=== PATIENT | female | born 1950 | race Caucasian/White ===

== ENCOUNTER 2022-07-12 10:38 | Emergency (ER) | payer MEDICARE, BC, SELFPAY ==
[2022-07-12] VITALS (25 sets, daily range): BP systolic 108–143; BP diastolic 62–85; PULSE 55–71; RESP 10–20; TEMP 36.8; O2SAT 83–96; BMI 29.8
--- NOTE | 2022-07-12 11:31 | ED_ITS ---
HPI - General Adult General Time Seen by Provider: 11:31 Date Seen: 07/12/22 Chief complaint: Chest Pain Stated complaint: Chest/left arm pain Time Seen by Provider: 07/12/22 11:11 Source: patient and RN notes reviewed Mode of arrival: ambulatory Limitations: no limitations History of Present Illness HPI narrative: Patient is a 71-year-old female ambulatory in the ED of her own accord with sense of chest pressure. This morning she went to the [employer] to steel pickler black for her and parents Graves site, went to [employer] after that to steel pickler a prescription that was ready. She was walking out to her car when she had sudden onset of chest discomfort that radiated into her neck and into her left arm. She drove home and took 2 sublingual nitroglycerin. This abated the pain but she still left with a sense pressure. She describes it as a heaviness. She has sublingual nitroglycerin for esophageal spasms. Her esophageal spasms have not felt like this before. She has not been sick with any cough or cold symptoms. The sharp type pain completely abated with the nitroglycerin. She does not have a history of cardiac disease. There was no sense of reflux, no associated nausea or vomiting. No abdominal pain. Related Data Previous Rx's Medication Instructions Recorded albuterol sulfate 90 mcg/actuation 2 puff inhalation Q6-8H PRN 07/04/22 aerosol inhaler bronchospasm #18 ea prednisone 20 mg tablet 20 mg PO BID #10 tabs 07/12/22 Allergies Allergy/AdvReac Type Severity Reaction Status Date / Time aspirin AdvReac Verified 07/12/22 10:49 Review of Systems Status of ROS: Reports: 10 or more systems reviewed and unremarkable except as noted in History and below [facility] Medical History (Updated 07/12/22 @ 15:52 by Sienna Landin MD) Bronchospasm Social History Smoking Status: Never smoker Do you use any of these nicotine containing products: None Second hand tobacco smoke exposure: No How often do you have a drink containing alcohol: monthly or less How often do you have six or more drinks on one occasion: Never AUDIT-C Alcohol total score: 1 Non-prescribed substance use: denies use service: No Exam Const: Vital Signs, click to edit/add: Vital Signs - 24 hr 07/12/22 10:50 07/12/22 10:57 07/12/22 11:55 Temperature 98.3 F Pulse Rate Pulse Rate [Apical ] 71 66 Respiratory Rate 20 18 Blood Pressure Blood Pressure [Ri ght Upper Arm] 116/85 108/77 Pulse Oximetry 93 93 93 Oxygen Delivery Me thod Room Air Room Air Oxygen Flow Rate 07/12/22 11:22 07/12/22 11:30 07/12/22 12:00 Temperature Pulse Rate Pulse Rate [Apical ] 64 61 61 Respiratory Rate 10 L 16 10 L Blood Pressure Blood Pressure [Ri ght Upper Arm] 122/75 117/71 123/73 Pulse Oximetry 91 92 92 Oxygen Delivery Me thod Room Air Room Air Room Air Oxygen Flow Rate 07/12/22 12:06 07/12/22 12:30 07/12/22 12:32 Temperature Pulse Rate 60 56 L 57 L Pulse Rate [Apical ] Respiratory Rate Blood Pressure 128/62 Blood Pressure [Ri ght Upper Arm] Pulse Oximetry 93 93 93 Oxygen Delivery Me thod Oxygen Flow Rate 07/12/22 12:33 07/12/22 13:01 07/12/22 13:30 Temperature Pulse Rate 59 L 58 L 58 L Pulse Rate [Apical ] Respiratory Rate Blood Pressure 118/76 Blood Pressure [Ri ght Upper Arm] Pulse Oximetry 90 92 93 Oxygen Delivery Me thod Oxygen Flow Rate 07/12/22 13:31 07/12/22 14:03 07/12/22 14:04 Temperature Pulse Rate 57 L 71 66 Pulse Rate [Apical ] Respiratory Rate Blood Pressure 137/69 138/73 Blood Pressure [Ri ght Upper Arm] Pulse Oximetry 92 83 L 90 Oxygen Delivery Me thod Nasal Cannula Oxygen Flow Rate 2 07/12/22 14:05 07/12/22 14:30 07/12/22 14:31 Temperature Pulse Rate 63 59 L 60 Pulse Rate [Apical ] Respiratory Rate Blood Pressure 115/76 Blood Pressure [Ri ght Upper Arm] Pulse Oximetry 93 96 96 Oxygen Delivery Me thod Nasal Cannula Nasal Cannula Oxygen Flow Rate 2 2 07/12/22 14:32 07/12/22 15:00 07/12/22 15:01 Temperature Pulse Rate 59 L 56 L 55 L Pulse Rate [Apical ] Respiratory Rate Blood Pressure 130/85 Blood Pressure [Ri ght Upper Arm] Pulse Oximetry 96 96 96 Oxygen Delivery Me thod Nasal Cannula Nasal Cannula Nasal Cannula Oxygen Flow Rate 2 2 2 07/12/22 15:30 07/12/22 15:31 Temperature Pulse Rate 57 L 55 L Pulse Rate [Apical ] Respiratory Rate Blood Pressure 143/82 H Blood Pressure [Ri ght Upper Arm] Pulse Oximetry 95 95 Oxygen Delivery Me thod Nasal Cannula Nasal Cannula Oxygen Flow Rate 2 2 Documenting provider has reviewed patient's vital signs: yes Common normals: no apparent distress, average body habitus, oriented x3, no limitations, healthy appearing, alert and well nourished General appearance: cooperative, comfortable and well kempt HENMT: Common normals: normocephalic, head/scalp atraumatic, hearing grossly normal bilaterally, external ears normal, external nose normal, nasal mucous membranes and turbinates normal, moist oral mucous membranes, oropharynx normal, dentition normal and gingiva normal Head and scalp: normocephalic and atraumatic Nose: external nose normal and nasal mucous membranes and turbinat es normal External ear: external ears normal Eye: Common normals: PERRL, EOMs intact bilaterally, conjunctivae normal and no scleral icterus Conjunctiva: conjunctiva(e) normal Pupil: PERRL Neck & C-Spine: Common normals: full ROM, no lymphadenopathy, supple, no meningeal signs, no JVD and thyroid normal Thyroid: thyroid normal Chest: Common normals: inspection of chest normal and palpation of chest normal Resp: Common normals: normal respiratory effort, no retractions, no use of accessory muscles and clear to auscultation bilaterally Auscultation: clear to auscultation bilaterally Cardio: Common normals: no JVD, regular rate, regular rhythm, S1 normal heart sound, S2 normal heart sound, no gallops, no clicks and no murmurs Rate: regular rate Rhythm: regular rhythm Heart sounds: S1 normal and S2 normal GI: Common normals: Normal to inspection, nondistended, normoactive bowel sounds present, soft to palpation, non-tender, no hepatosplenomegaly and no masses Palpation: soft and no hepatosplenomegaly Extremity: Common normals: normal to inspection, full ROM, normal capillary refill, no joint enlargement, no clubbing, cyanosis or edema, no calf tenderness and no pedal edema Neuro: Common normals: oriented x3 Sensorium/orientation: alert Meningeal signs: no meningeal signs Psych: Appearance: well kempt Course Course Hospital Course: She will be on cardiac monitoring and pulse oximetry to watch for hypoxia, arrhythmia. IV will be established, labs will be obtained. She will have appropriate monitoring. Will start with a portable chest x-ray. Certainly esophageal spasm is a consideration better history does sound concerning that this could be cardiac. Other possibilities are pulmonary etiologies. Thromboembolic disease cardiovascular disease are all potential etiologies. Would not necessarily anticipate that sublingual nitroglycerin would alleviate pain from something such as a pulmonary embolus however. She understands she will be needed here for a period of monitoring. The sublingual nitroglycerin was taken maybe about 10 15-10 30 per patient. The total severe pain lasted maybe 10-15 minutes. Thus, would think that a 3 hour troponin should be done around 1:30 p.m.. At this point, we will not be giving her aspirin due to her allergy. Reevaluation(s) Reevaluation #1: Reviewed with patient her chest x-ray looked abnormal. She did tell me then that she does carry a diagnosis of COPD and does take Anoro Ellipta mornings. She does not feel that her COPD has been problematic of late. Her D-dimer is elevated. Did discuss that we would proceed with chest CT PE protocol. She is coming due for her 2nd cardiac enzyme. Just feels a little slight pressure in her lower chest area. There has been no arrhythmia, no hypoxia on cardiac monitoring and oximetry respectively. Time: 13:15 Reevaluation #2: Nursing staff reported to me that patient ambulated to the bathroom and on her way back was quite short of breath. Her O2 sats were 70% arriving back at the room. She recovered nicely into L nasal cannula on within a minute or so was back up to 92% on room air. She reportedly does note that she will get short of breath with activity but not to this level. We are waiting her imaging to be done. Her followup EKG is normal. Time: 14:00 Reevaluation #3: Patient did become hypoxic at rest. We did find out that she does use 2 L nasal cannula oxygen at night. With her shortness of breath, mild hypoxia and otherwise normal evaluation here, do think this may be her COPD. We discussed trying a course of prednisone and follow up with her primary care provider in the near future. She was agreeable to this plan. I do not think she needs any antibiotics based on imaging as well as labs. Time: 15:49 Vital Signs Vital signs: Initial Vital Signs Temperature Source Temporal Artery Scan 07/12/22 10:50 Pulse Rate 71 07/12/22 10:50 Pulse Rhythm 07/12/22 10:50 Respiratory Rate 20 07/12/22 10:50 Blood Pressure 116/85 07/12/22 10:50 Blood Pressure Mean 95 07/12/22 10:50 Pulse Oximetry 93 07/12/22 10:50 Oxygen Delivery Method 07/12/22 10:50 Vital Signs Pulse Rate 71 07/12/22 10:50 Respiratory Rate 20 07/12/22 10:50 Blood Pressure 116/85 07/12/22 10:50 Pulse Oximetry 93 07/12/22 10:50 Oxygen Delivery Method 07/12/22 10:50 Temperature 98.3 F 07/12/22 10:57 Pulse Rate 55 L 07/12/22 15:31 Respiratory Rate 10 L 07/12/22 12:00 Blood Pressure 143/82 H 07/12/22 15:31 Pulse Oximetry 95 07/12/22 15:31 Oxygen Delivery Method 07/12/22 15:31 Oxygen Flow Rate 2 07/12/22 15:31 Medical Decision Making Lab Data Lab results reviewed: Yes I reviewed the patient's lab results Labs: Lab Results 07/12/22 07/12/22 07/12/22 Range/Units 11:05 11:05 11:05 WBC 6.95 (4.50-11.00) K/uL RBC 4.56 (4.00-5.20) m/uL Hgb 14.0 (12.0-16.0) gm/dL Hct 43.4 (33.0-51.0) % MCV 95 (80-100) fL MCH 31 (26-34) pg MCHC 32 (32-36) gm/dL RDW Coeff of Yvrose 13.6 (11.5-15.5) % Plt Count 272 (140-440) K/uL Neut % (Auto) 70.8 (42.0-72.0) % Lymph % (Auto) 18.0 L (20-44) % [place] % (Auto) 7.8 (0.0-11.0) % Eos % (Auto) 2.9 (0.0-7.0) % Baso % (Auto) 0.4 (0.0-3.0) % Neut # (Auto) 4.92 (1.7-7.0) K/uL Lymph # (Auto) 1.30 (0.90-2.90) K/uL [place] # (Auto) 0.50 (0.00-0.90) K/UL Eos # (Auto) 0.20 (0.00-0.50) K/uL Baso # (Auto) 0.03 (0.00-0.30) K/uL Abs Immat Gran (auto) 0.01 (0.00-0.30) K/uL D-Dimer Quant (PE/DVT) 0.92 H (0.00-0.50) ug/ml Sodium 136 (135-149) mmol/L Potassium 4.3 (3.6-5.1) mmol/L Chloride 101 (96-114) mmol/L Carbon Dioxide 25 (20-32) mmol/L BUN 26 (7-30) mg/dL Creatinine 1.4 (0.5-1.5) mg/dL Estimated Creat Clear 32.20 Estimated GFR 40 ml/min Glucose 98 (60-115) mg/dL Calcium 8.9 (8.4-10.6) mg/dL Magnesium 1.9 (1.5-2.6) mg/dL Total Bilirubin 0.4 (0.1-1.5) mg/dL AST 24 (12-35) U/L ALT 17 (4-35) U/L Alkaline Phosphatase 65 (40-150) U/L NT-Pro-B Natriuret Pep 442 H (0-125) PG/mL Total Protein 6.8 (6.0-8.3) g/dL Albumin 4.2 (3.3-5.0) g/dL SARS-CoV-2 (PCR) (Negative) Influenza Type A (PCR) (Negative) Influenza Type B (PCR) (Negative) POC Troponin I (0.01-0.04) ng/ml 07/12/22 07/12/22 07/12/22 Range/Units 11:05 13:30 14:45 WBC (4.50-11.00) K/uL RBC (4.00-5.20) m/uL Hgb (12.0-16.0) gm/dL Hct (33.0-51.0) % MCV (80-100) fL MCH (26-34) pg MCHC (32-36) gm/dL RDW Coeff of Yvrose (11.5-15.5) % Plt Count (140-440) K/uL Neut % (Auto) (42.0-72.0) % Lymph % (Auto) (20-44) % [place] % (Auto) (0.0-11.0) % Eos % (Auto) (0.0-7.0) % Baso % (Auto) (0.0-3.0) % Neut # (Auto) (1.7-7.0) K/uL Lymph # (Auto) (0.90-2.90) K/uL [place] # (Auto) (0.00-0.90) K/UL Eos # (Auto) (0.00-0.50) K/uL Baso # (Auto) (0.00-0.30) K/uL Abs Immat Gran (auto) (0.00-0.30) K/uL D-Dimer Quant (PE/DVT) (0.00-0.50) ug/ml Sodium (135-149) mmol/L Potassium (3.6-5.1) mmol/L Chloride (96-114) mmol/L Carbon Dioxide (20-32) mmol/L BUN (7-30) mg/dL Creatinine (0.5-1.5) mg/dL Estimated Creat Clear Estimated GFR ml/min Glucose (60-115) mg/dL Calcium (8.4-10.6) mg/dL Magnesium (1.5-2.6) mg/dL Total Bilirubin (0.1-1.5) mg/dL AST (12-35) U/L ALT (4-35) U/L Alkaline Phosphatase (40-150) U/L NT-Pro-B Natriuret Pep (0-125) PG/mL Total Protein (6.0-8.3) g/dL Albumin (3.3-5.0) g/dL SARS-CoV-2 (PCR) Negative SARS-CoV-2 (Negative) Influenza Type A (PCR) Negative PCR FLU A (Negative) Influenza Type B (PCR) Negative PCR FLU B (Negative) POC Troponin I 0.00 L 0.00 L (0.01-0.04) ng/ml Imaging Data Chest x-ray: Attestation: I have reviewed the pertinent imaging results. Radiologist's impression: Patient: RALF HERNANDEZ Facility:?[facility] Patient ID:?[id number] Site Patient ID:?[id number]. Site :?[id number] Study:?XRay Chest PORTABLE ONE VIEW-07/12/2022 12:04:36 PM Ordering Physician:?Mushtaq El Final Report: INDICATION: Chest pain COMPARISON: December 25, 2021 TECHNIQUE: Portable AP single view study FINDINGS: TUBES AND LINES: None. HEART AND MEDIASTINUM: The heart size is normal. The mediastinal contour appears normal for patient age. LUNGS AND PLEURAL SPACES: Moderate multifocal lung abnormality, primarily interstitial this could be edema, atypical inflammatory process or chronic disease such as fibrosis.Similar to the prior study. This could be chronic or recurrent disease. OSSEOUS STRUCTURES: Age-appropriate appearance. No acute focal finding. IMPRESSION: Moderate multifocal lung abnormality, primarily interstitial. The primary differential considerations are atypical inflammatory process, edema or a chronic process such as fibrosis. Dictated by Kayode Hayes MD @ 07/12/2022 12:56:43 PM (Electronic Signature) CT scan - chest: Attestation: I have reviewed the pertinent imaging results. Radiologist's impression: Patient: RALF HERNANDEZ Facility:?[facility] Patient ID:?[id number] Site Patient ID:?[id number]. Site :?[id number] Study:?CT Chest Angio PE PROTOCOL W/95CC [id number]/11/2022 2:08:26 PM Ordering Physician:?Mushtaq El Final Report: INDICATION: Chest pain; rule out PE. COMPARISON: CT chest with intravenous contrast September 28, 2019. TECHNIQUE: CT chest with intravenous contrast; coronal and sagittal reformats. FINDINGS: No evidence of acute or chronic pulmonary thromboemboli. Complete resolution of the PE in the right upper lobe pulmonary artery branches when compared to 09/28/2019. No abnormal mediastinal or hilar lymphadenopathy. No evidence of pleural effusion or chest wall pathology. Paraseptal pulmonary emphysema throughout both lungs. No pleural effusion or chest wall pathology. Limited CT through the upper abdomen reveals multiple cystic lesions in the liver as well as prominent biliary duct system and cholecystectomy. IMPRESSION: 1. No evidence of pulmonary thromboembolism. 2. Pulmonary emphysema. 3. Complete resolution of the PE in the right upper lobe when compared to 09/28/2019. Please note that all CT scans at this facility use dose modulation, iterative reconstruction, and/or weight-based dosing when appropriate to reduce radiation dose to as low as reasonably achievable. Dictated by Ольга Nava MD @ 07/12/2022 2:47:46 PM (Electronic Signature) ECG Data Attestation: I personally reviewed and interpreted this ECG as follows: (Sinus rhythm, 69 beats per minute, QT corrected 447 milliseconds. Normal EKG.) Prior ECG tracings: not available for review Interpretation: Followup EKG timed 1346 showing a sinus rhythm, 64 beats per minute, single PVC seen. QT corrected 451 milliseconds. No acute ischemic change. Discharge Plan Discharge Clinical Impression: Hypoxia, Chest pain, COPD (chronic obstructive pulmonary disease) Patient Disposition: Home, Self-Care Condition: Stable Instructions: Chest Pain (ED), COPD (Chronic Obstructive Pulmonary Disease) (ED) Additional Instructions: Start prednisone and take as prescribed, recommend taking this with food to protect her stomach. Continue with your Anoro Ellipta inhaler, use albuterol as needed for cough/wheeze/shortness of breath. You need to get scheduled for a followup with her primary care provider with in the next week. I would discuss possible need for further pulmonary function testing/oximetry testing to see if your oxygen requirements are adequate. In the interim, if you develop severe chest pain, increased difficulty breathing or worsening shortness of breath, develops fever, need to be re-evaluated. Activity Level: Activity as Tolerated Prescriptions: New prednisone 20 mg tablet 20 mg PO BID Qty: 10 0RF No Action albuterol sulfate 90 mcg/actuation HFA aerosol inhaler 2 puff inhalation Q6-8H PRN (Reason: bronchospasm) Qty: 18 0RF Stand Alone Forms: [employer] Info Instructions
--- NOTE | 2022-07-12 11:40 | CRLHL7_ITS ---
For Patients: As a result of the Century Cures Act, medical imaging exams and procedure reports are released immediately into your electronic medical record. You may view this report before your referring provider. If you have questions, please contact your health care provider. INDICATION: Chest pain COMPARISON: December 25, 2021 TECHNIQUE: Portable AP single view study FINDINGS: TUBES AND LINES: None. HEART AND MEDIASTINUM: The heart size is normal. The mediastinal contour appears normal for patient age. LUNGS AND PLEURAL SPACES: Moderate multifocal lung abnormality, primarily interstitial this could be edema, atypical inflammatory process or chronic disease such as fibrosis.Similar to the prior study. This could be chronic or recurrent disease. OSSEOUS STRUCTURES: Age-appropriate appearance. No acute focal finding. IMPRESSION: Moderate multifocal lung abnormality, primarily interstitial. The primary differential considerations are atypical inflammatory process, edema or a chronic process such as fibrosis. Dictated by Kayode Hayes MD @ 07/12/2022 12:56:43 PM (Electronically Signed)
[2022-07-12 11:51] LABS: Basophils Absolute Auto 0.03 K/uL (0.00-0.30); Basophils Percent Auto 0.4 % (0.0-3.0); Eosinophils Percent Auto 2.9 % (0.0-7.0); Hematocrit 43.4 % (33.0-51.0); Immature Granulocytes Abs Auto 0.01 K/uL (0.00-0.30); Mean Corpuscular HGB Conc 32 gm/dL (32-36); Mean Corpuscular Hemoglobin 31 pg (26-34); Mean Corpuscular Volume 95 fL (80-100); Monocytes Percent Auto 7.8 % (0.0-11.0); Neutrophils Absolute Auto 4.92 K/uL (1.7-7.0); Neutrophils Percent Auto 70.8 % (42.0-72.0); Platelet Count* 272 K/uL (140-440); RDW Coefficient of Variation % 13.6 % (11.5-15.5); Red Blood Count 4.56 m/uL (4.00-5.20); White Blood Count* 6.95 K/uL (4.50-11.00)
[2022-07-12 12:02] LABS: Slide Review Reflex No
[2022-07-12 12:04] LABS: Albumin* 4.2 g/dL (3.3-5.0); Chloride* 101 mmol/L (96-114)
[2022-07-12 12:05] LABS: Potassium* 4.3 mmol/L (3.6-5.1); Sodium* 136 mmol/L (135-149)
[2022-07-12 12:07] LABS: Aspartate Amino Transferase* 24 U/L (12-35); Bilirubin Total* 0.4 mg/dL (0.1-1.5); Carbon Dioxide* 25 mmol/L (20-32); Creatinine* 1.4 mg/dL (0.5-1.5); Estimated Glomerular Filt Rate 40 ml/min
[2022-07-12 12:08] LABS: Alanine Aminotransferase* 17 U/L (4-35); Alkaline Phosphatase* 65 U/L (40-150); Blood Urea Nitrogen* 26 mg/dL (7-30); Calcium* 8.9 mg/dL (8.4-10.6); Glucose* 98 mg/dL (60-115); Magnesium* 1.9 mg/dL (1.5-2.6); Total Protein* 6.8 g/dL (6.0-8.3)
[2022-07-12 12:09] LABS: D Dimer Quantitative* 0.92 ug/ml (0.00-0.50)
[2022-07-12 12:17] LABS: NT Pro B Type NatriureticPept* 442 PG/mL (0-125)
--- NOTE | 2022-07-12 13:05 | CRLHL7_ITS ---
For Patients: As a result of the Century Cures Act, medical imaging exams and procedure reports are released immediately into your electronic medical record. You may view this report before your referring provider. If you have questions, please contact your health care provider. INDICATION: Chest pain; rule out PE. COMPARISON: CT chest with intravenous contrast September 28, 2019. TECHNIQUE: CT chest with intravenous contrast; coronal and sagittal reformats. FINDINGS: No evidence of acute or chronic pulmonary thromboemboli. Complete resolution of the PE in the right upper lobe pulmonary artery branches when compared to 09/28/2019. No abnormal mediastinal or hilar lymphadenopathy. No evidence of pleural effusion or chest wall pathology. Paraseptal pulmonary emphysema throughout both lungs. No pleural effusion or chest wall pathology. Limited CT through the upper abdomen reveals multiple cystic lesions in the liver as well as prominent biliary duct system and cholecystectomy. IMPRESSION: 1. No evidence of pulmonary thromboembolism. 2. Pulmonary emphysema. 3. Complete resolution of the PE in the right upper lobe when compared to 09/28/2019. Please note that all CT scans at this facility use dose modulation, iterative reconstruction, and/or weight-based dosing when appropriate to reduce radiation dose to as low as reasonably achievable. Dictated by Ольга Nava MD @ 07/12/2022 2:47:46 PM (Electronically Signed)
--- NOTE | 2022-07-12 13:44 | ED.NURSE ---
Pt was ambulatory to the restroom, upon return to room, pt O2 sats at 70%, very SOB. 2L O2 NC applied, pt back up to the mid-90's% with no SOB after a few minutes. O2 dc'd, pt sats at 92% on RA.
--- NOTE | 2022-07-12 14:27 | ED.NURSE ---
Pt satting at 84% while sitting in bed. 2L O2 NC reapplied to pt. notified.
[2022-07-12 15:31] LABS: PCR FLU A Negative PCR FLU A (Negative); PCR FLU B Negative PCR FLU B (Negative)
[2022-07-12 15:37] LABS: SARS PCR* Negative SARS-CoV-2 (Negative)
== END 2022-07-12 16:11 | disposition home or self-care (01) ==
PROVIDERS: Emergency Provider Family Medicine
DX: J44.9 Chronic obstructive pulmonary disease, unspecified (principal); R09.02 Hypoxemia
CPT/HCPCS: 36415; 71045; 71260; 80053; 83735; 83880; 85025; 85379; 87631; 93005; 94761; 99284; 99285; Q9967

== ENCOUNTER 2023-09-29 06:20 | Outpatient (CLI) | payer MEDICARE, BC, SELFPAY | END 2023-09-29 06:21 | disposition home or self-care (01) | LOC: AMB 10-03 09:38 | PROVIDERS: Visit Provider Family Medicine | DX: R06.09 Other forms of dyspnea (principal); R50.9 Fever, unspecified; R05.9 Cough, unspecified | CPT/HCPCS: A0425; A0427 ==

== ENCOUNTER 2023-09-29 06:53 | Inpatient (IN) | payer MEDICARE, BC, SELFPAY ==
[2023-09-29] VITALS (12 sets, daily range): BP systolic 104–153; BP diastolic 72–100; PULSE 75–91; RESP 20–28; TEMP 36.4–36.9; O2SAT 89–97; BMI 21.8; BMI 30.1
--- NOTE | 2023-09-29 07:13 | CRLHL7_ITS ---
For Patients: As a result of the Century Cures Act, medical imaging exams and procedure reports are released immediately into your electronic medical record. You may view this report before your referring provider. If you have questions, please contact your health care provider. INDICATION: Dyspnea COMPARISON: July 12, 2022 TECHNIQUE: Single-view study FINDINGS: TUBES AND LINES: None. HEART AND MEDIASTINUM: The heart size is normal. The mediastinal contour appears normal for patient age. LUNGS AND PLEURAL SPACES: Moderate diffuse patchy multifocal airspace disease.The pleural spaces are unremarkable. OSSEOUS STRUCTURES: Age-appropriate appearance. No acute focal finding. IMPRESSION: Moderate diffuse patchy multifocal airspace disease bilaterally. Normal pleural spaces. These findings could be related to the atypical appearance of pulmonary edema or a diffuse inflammatory process. Dictated by Kayode Hayes MD @ 09/29/2023 7:47:58 AM (Electronically Signed)
[2023-09-29] MEDS: IPRAT-ALBUT 0.5-2.5 MG/3 ML NEB 1 NEB IH ×3 (07:31→17:40)
[2023-09-29] MEDS: METHYLPREDNISOLONE SOD SUCC 62.5 MG/ML (125) 80 MG IVP (07:31)
--- OUTSIDE RECORDS SUMMARY | 2023-09-29 07:36 | XMS_ITS | Continuity of Care Document ---
Author Name Unknown Organization [facility] Address [address] [address] [place] [address] Phone Care Team Providers Care Ski Instructor Name Role Phone Unavailable Unavailable Unavailable Procedures Procedure Date Colonoscopy Flex; Dx (sep Pro) 14 Ugi Endo; Dx W/wo Collec Specm 14 Init Hosp-da E&m Mod Severity 4 Advance Directives Directive Yes / No Effective Date File Name No Information Encounters Encounter Description Practice Location Reason(s) For Visit Diagnoses Date Provider Providers Copied on Encounter [facility], [address] [address], [place], [place], [id number], tel:[phone] [facility] No Information No Information Referring Provider: Ceferino Dia MD, [address] [place] [address], [place], [address] . tel:[phone] Init Hosp-da E&m Mod Severity [facility], [address] [address], [place], [place], [id number], tel:[phone] [facility] No Information [place]. [address] [place] [address], [place] [address], [place], [place], [id number], [place]. tel:[phone] Referring Provider: Ceferino Dia MD, [address] [place] [address], [place], [address] . tel:[phone] Family History Family Member Type Diagnosis Age At Onset No Information Payers Payer name Insurance type Covered constitution party ID Authorneetua sarah(s) [employer] [id number] Social History Type Description Quantity Date Captured Comments Sex Female Smoking Status No Information Chief Complaint And Reason For Visit No Information Reason For Referral Reason For Referral No Information History Of Present Illness Encounter Date Complaint History Of Prese nt Illness No Information Functional Status Date Functional Assessmen t No Information Instructions Date Instruction Additional Infor mation No Information Assessments Type Assessment Date No Information Patient Care Teams Name Effective Dates (start - stop) Status Members No Information
[2023-09-29] MEDS: FUROSEMIDE 10 MG/ML inj 40 MG IVP (07:46)
[2023-09-29 07:54] LABS: Lactate* 1.1 mmol/L (0.5-1.9)
[2023-09-29 07:58] LABS: Basophils Absolute Auto 0.04 K/uL (0.00-0.30); Basophils Percent Auto 0.4 % (0.0-3.0); Eosinophils Absolute Auto 0.24 K/uL (0.00-0.50); Eosinophils Percent Auto 2.6 % (0.0-7.0); Hemoglobin* 15.3 gm/dL (12.0-16.0); Immature Granulocytes Abs Auto 0.01 K/uL (0.00-0.30); Immature Granulocytes Pct Auto 0.1 %; Lymphocytes Percent Auto 11.1 % (20-44); Mean Corpuscular HGB Conc 31 gm/dL (32-36); Mean Corpuscular Hemoglobin 30 pg (26-34); Mean Corpuscular Volume 97 fL (80-100); Monocytes Percent Auto 11.1 % (0.0-11.0); Neutrophils Percent Auto 74.7 % (42.0-72.0); Platelet Count* 255 K/uL (140-440); RDW Coefficient of Variation % 12.9 % (11.5-15.5); Red Blood Count 5.05 m/uL (4.00-5.20); White Blood Count* 9.31 K/uL (4.50-11.00)
[2023-09-29 08:04] LABS: PCR FLU A Negative PCR FLU A (Negative); PCR FLU B Negative PCR FLU B (Negative); PCR RSV POSITIVE PCR RSV (Negative)
[2023-09-29 08:05] LABS: Slide Review Reflex No
[2023-09-29 08:08] LABS: SARS PCR* Negative SARS-CoV-2 (Negative)
[2023-09-29 08:11] LABS: Chloride* 102 mmol/L (96-114); Potassium* 4.3 mmol/L (3.6-5.1); Sodium* 135 mmol/L (135-149)
[2023-09-29 08:14] LABS: Anion Gap 9 mEq/L (7-15); Blood Urea Nitrogen* 17 mg/dL (7-30); Calcium* 8.8 mg/dL (8.4-10.6); Carbon Dioxide* 24 mmol/L (20-32); Est. Creatinine Clearance* 41.97; Estimated Glomerular Filt Rate 59 ml/min; Glucose* 122 mg/dL (60-115)
[2023-09-29 08:24] LABS: NT Pro B Type NatriureticPept* 2210 pg/mL
[2023-09-29 08:34] LABS: D Dimer Quantitative* 0.51 ug/ml (0.00-0.50)
--- NOTE | 2023-09-29 08:37 | CRLHL7_ITS ---
For Patients: As a result of the Century Cures Act, medical imaging exams and procedure reports are released immediately into your electronic medical record. You may view this report before your referring provider. If you have questions, please contact your health care provider. INDICATION: Shortness of breath, infiltrates. TECHNIQUE: CT chest PE was acquired with 75 cc Omnipaque 350 IV contrast. COMPARISON: July 12, 2022. FINDINGS: Heart and vasculature: Contrast opacification of the pulmonary arterial tree is adequate. Acute left lower lobar pulmonary embolism (series 2/image 47), not seen on prior study. Prominent heart size. Coronary artery calcifications. Thoracic aorta and pulmonary artery are normal in caliber. Lungs and pleura: Pulmonary emphysema. No focal consolidations. No pleural effusions, pleural thickening, or pneumothorax. Lymph nodes/mediastinum: No mediastinal, hilar, or axillary adenopathy. Chest wall: No masses. Upper abdomen: Incidental 1.3 centimeter pancreatic tail cystic lesion. No acute or significant findings. Bones: Stable multifocal chronic vertebral compression deformities. IMPRESSION: Acute left lower lobar pulmonary embolism, not seen on prior study. No right heart strain. Pulmonary emphysema. Persistent mosaic attenuation throughout the lungs, likely related small vessel/airway disease. No focal consolidations. Case discussed with Dr. Pandya at 1:20 p.m. on 09/29/2023. Please note that all CT scans at this facility use dose modulation, iterative reconstruction, and/or weight-based dosing when appropriate to reduce radiation dose to as low as reasonably achievable. Dictated by Darian Koo MD @ 09/29/2023 1:19:48 PM (Electronically Signed)
[2023-09-29 08:51] LABS: Procalcitonin* 0.12 ng/mL (<0.50)
[2023-09-29 09:01] LABS: Troponin I* < 0.01 ng/mL (0.01-0.04)
[2023-09-29] MEDS: AZITHROMYCIN 250 MG TABLET 500 MG PO (12:14)
[2023-09-29] MEDS: OxyCODONE/APAP 5-325 TABLET PO ×2 (13:35→21:44)
--- NOTE | 2023-09-29 13:35 | P.IMHP_ITS ---
Hospitalist- H&P: HPI History of Present Illness Date Seen: 09/29/23 Chief complaint: trouble breathing Narrative: Nasreen Fiore is a 73 year old female with COPD, previous pulmonary emboli, stage 3 chronic kidney disease, VASILE, chronic pain with chronic opioid use who presents with a 3 day history of worsening respiratory illness. She has O2 dependent COPD and was in her usual state of health until 3 days ago when she had onset of an upper respiratory infection. She had congestion that progress and a cough and moved into her chest. She then developed significant dyspnea with this. She also thinks she has had a fever with this as well. Because of worsening breathing she came to the emergency room for evaluation. There she was found to have hypoxia and respiratory distress. At home she has oxygen. She mainly uses at night when she sleeps at 2 L per nasal cannula. She reports her only exposures are when she went to [employer] on Monday and [place]. She lives with her son who she thinks has not been ill. She had a pulmonary embolism couple years ago when she had rib fractures. She had a CT scan of her chest done in July 2022 showing resolution of her pulmonary emboli. She has a tendency towards chronic lower extremity edema for which he takes furosemide. That is been going fairly well recently Review of Systems Narrative: She reports generally doing well other than her respiratory symptoms. She has been able to eat and drink this week. She reports no chest pain. She has chronic back pain for which she takes oxycodone. [facility] Medical History (Updated 09/29/23 @ 13:59 by Jacob Pandya MD) Pulmonary embolism ?I26.99 - Other pulmonary embolism without acute cor pulmonale (ICD-10) Graves disease ?E05.00 - Thyrotoxicosis with diffuse goiter without thyrotoxic crisis or storm (ICD-10) GERD (gastroesophageal reflux disease) ?K21.9 - Gastro-esophageal reflux disease without esophagitis (ICD-10) Anxiety ?F41.9 - Anxiety disorder, unspecified (ICD-10) Depression ?F32.A - Depression, unspecified (ICD-10) Stage 3 chronic kidney disease ?N18.30 - Chronic kidney disease, stage 3 unspecified (ICD-10) Hyperlipidemia ?E78.5 - Hyperlipidemia, unspecified (ICD-10) Chronic back pain ?M54.9 - Dorsalgia, unspecified (ICD-10) ?G89.29 - Other chronic pain (ICD-10) Peptic ulcer disease ?K27.9 - Peptic ulcer, site unspecified, unspecified as acute or chronic, without hemorrhage or perforation (ICD-10) Meningioma ?D32.9 - Benign neoplasm of meninges, unspecified (ICD-10) Hypothyroidism ?E03.9 - Hypothyroidism, unspecified (ICD-10) Hypertension ?I10 - Essential (primary) hypertension (ICD-10) Acute and chronic respiratory failure with hypoxia ?J96.21 - Acute and chronic respiratory failure with hypoxia (ICD-10) Congestive heart failure ?I50.9 - Heart failure, unspecified (ICD-10) Bronchospasm ?J98.01 - Acute bronchospasm (ICD-10) Surgical History (Updated 09/29/23 @ 13:51 by Jacob Pandya MD) History of Ghislaine-en-Y gastric bypass ?Z98.84 - Bariatric surgery status (ICD-10) History of hip replacement ?Z96.649 - Presence of unspecified artificial hip joint (ICD-10) H/O abdominal hysterectomy ?Z90.710 - Acquired absence of both cervix and uterus (ICD-10) History of partial gastrectomy ?Z90.3 - Acquired absence of stomach [part of] (ICD-10) Status post coil embolization of cerebral aneurysm ?Z98.890 - Other specified postprocedural states (ICD-10) Total knee replacement status ?Z96.659 - Presence of unspecified artificial knee joint (ICD-10) Status post appendectomy ?Z90.49 - Acquired absence of other specified parts of digestive tract (ICD- 10) Status post cholecystectomy ?Z90.49 - Acquired absence of other specified parts of digestive tract (ICD- 10) Family History (Updated 09/29/23 @ 13:53 by Jacob Pandya MD) Brother Alcohol dependence Father Colon cancer Other Breast cancer Social History (Updated 09/29/23 @ 13:54 by Jacob Pandya MD) Narrative: She lives in [place]. Her son Cm lives with her. He is healthcare power of patent prosecution attorney. She gets healthcare [facility], Dr. Jannie Giordano. Quit smoking in 2008. Rarely drinks alcohol. Code status is DNR DNI What is your current living situation?: I presently have a place to live Problems where you live: no known problems Problems where you live details: NA In the past 12 months, utilities in danger of being shut off: no In past 12 months, lack of transportation kept you from medical appts, meetings, work, or getting things needed for daily living: no In the past 12 mos, have been you worried that your food would run out before you had money to buy more?: never true In the past 12 mos, the food you bought just didn't last and you didn't have money to buy more?: never true Highest level of school completed/degree received: high school graduate Smoking Status: Former smoker Do you use any of these nicotine containing products: None Second hand tobacco smoke exposure: No How often do you have a drink containing alcohol: monthly or less Alcohol type: wine How often do you have six or more drinks on one occasion: Never AUDIT-C Alcohol total score: 1 Non-prescribed substance use: denies use Caffeine: No How often does anyone, including family, friends and others, physically hurt you : never How often does anyone, including family, friends and others, insult or talk down to you: never How often does anyone, including family, friends and others, threaten you with harm: never How often does anyone, including family, friends and others, scream or curse at you: never service: No Meds Home Medications and Allergies Home Medications Medication Instructions Recorded Confirmed Type furosemide 40 mg tablet 40 mg PO DAILY 02/28/23 09/29/23 History levothyroxine 112 mcg tablet 112 mcg PO DAILY 02/28/23 09/29/23 History liothyronine 5 mcg tablet 5 mcg PO BID 02/28/23 09/29/23 History metoprolol succinate 25 mg 25 mg PO DAILY 02/28/23 09/29/23 History tablet,extended release 24 hr oxycodone-acetaminophen 10 mg-325 1 tab PO Q4-6H PRN pain 02/28/23 09/29/23 History mg tablet sertraline 100 mg tablet 200 mg PO DAILY 02/28/23 09/29/23 History trazodone 50 mg tablet 100 mg PO QPM 02/28/23 09/29/23 History umeclidinium 62.5 mcg-vilanterol 1 ea inhalation DAILY 02/28/23 02/28/23 History 25 mcg/actuation powdr for inhalation (Anoro Ellipta) bupropion HCl 150 mg 24 hr tablet, 150 mg PO QAM 09/29/23 09/29/23 History extended release Allergies Allergy/AdvReac Type Severity Reaction Status Date / Time aspirin AdvReac Verified 02/28/23 15:15 Exam Narrative: Exam Narrative: She is alert and appears in mild respiratory distress. She gives her own history. Eyes normal. Oropharynx with dentures. No mucosal abnormality. Neck is supple without mass or adenopathy. Respirations with decreased breath sounds in all lung barton. Occasional crackles scattered through her lung barton. Prolonged expiratory phase. No consolidation. Cardiovascular: S1, S2, regular rate and rhythm. Abdomen: Bowel sounds active. Abdomen is soft without tenderness or mass. Extremities without edema. No rash. Const: Vital Signs, click to edit/add: Vital Signs - 24 hr 09/29/23 07:03 09/29/23 07:54 09/29/23 08:00 Temperature 98.0 F Pulse Rate 76 75 Pulse Rate [Pulse Oximeter] Pulse Rate [Right Pulse Oximeter] 90 Respiratory Rate 28 H Blood Pressure Blood Pressure [Le ft Arm] Blood Pressure [Le ft Upper Arm] 135/78 Pulse Oximetry 90 91 91 Oxygen Delivery Me thod Nasal Cannula Oxygen Flow Rate 3 09/29/23 08:30 09/29/23 08:51 09/29/23 09:00 Temperature Pulse Rate 81 85 78 Pulse Rate [Pulse Oximeter] Pulse Rate [Right Pulse Oximeter] Respiratory Rate Blood Pressure 138/87 Blood Pressure [Le ft Arm] Blood Pressure [Le ft Upper Arm] Pulse Oximetry 90 89 97 Oxygen Delivery Me thod Oxygen Flow Rate 09/29/23 09:02 09/29/23 09:50 09/29/23 10:20 Temperature 97.7 F Pulse Rate 78 Pulse Rate [Pulse Oximeter] 80 Pulse Rate [Right Pulse Oximeter] Respiratory Rate 24 24 Blood Pressure 141/78 H Blood Pressure [Le ft Arm] 153/100 H Blood Pressure [Le ft Upper Arm] Pulse Oximetry 96 92 92 Oxygen Delivery Me thod Nasal Cannula Nasal Cannula Oxygen Flow Rate 2 2 09/29/23 11:15 Temperature 98.0 F Pulse Rate Pulse Rate [Pulse Oximeter] 84 Pulse Rate [Right Pulse Oximeter] Respiratory Rate 20 Blood Pressure Blood Pressure [Le ft Arm] 144/80 H Blood Pressure [Le ft Upper Arm] Pulse Oximetry 90 Oxygen Delivery Me thod [place] Nasal Ca nnula Oxygen Flow Rate 2 Documenting provider has reviewed patient's vital signs: yes Hospitalist - H&P: Result Labs Labs: Short CBC 09/29/23 Range/Units 07:49 WBC 9.31 (4.50-11.00) K/uL Hgb 15.3 (12.0-16.0) gm/dL Hct 49.0 (33.0-51.0) % Plt Count 255 (140-440) K/uL BMP 09/29/23 07:49 Sodium 135 Potassium 4.3 Chloride 102 Carbon Dioxide 24 BUN 17 Creatinine 1.0 Glucose 122 H Calcium 8.8 Cardiac Enzymes 09/29/23 Range/Units 07:49 Troponin I < 0.01 L (0.01-0.04) ng/mL Imaging CT scan - chest: Radiologist's impression: INDICATION: Shortness of breath, infiltrates. TECHNIQUE: CT chest PE was acquired with 75 cc Omnipaque 350 IV contrast. COMPARISON: July 12, 2022. FINDINGS: Heart and vasculature: Contrast opacification of the pulmonary arterial tree is adequate. Acute left lower lobar pulmonary embolism (series 2/image 47), not seen on prior study. Prominent heart size. Coronary artery calcifications. Thoracic aorta and pulmonary artery are normal in caliber. Lungs and pleura: Pulmonary emphysema. No focal consolidations. No pleural effusions, pleural thickening, or pneumothorax. Lymph nodes/mediastinum: No mediastinal, hilar, or axillary adenopathy. Chest wall: No masses. Upper abdomen: Incidental 1.3 centimeter pancreatic tail cystic lesion. No acute or significant findings. Bones: Stable multifocal chronic vertebral compression deformities. IMPRESSION: Acute left lower lobar pulmonary embolism, not seen on prior study. No right heart strain. Pulmonary emphysema. Persistent mosaic attenuation throughout the lungs, likely related small vessel/airway disease. No focal consolidations. 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 Initiate Eliquis- possibly lifelong. Status: Acute (4) COPD exacerbation: Problem comment: Acute on chronic COPD. On oxygen at home at night. Currently needing oxygen during the day. Inhaled bronchodilators, systemic steroids, antibiotics, oxygen Status: Acute Plan Admit to the hospital for evaluation and management of COPD exacerbation, RSV pneumonia, pulmonary embolism. Total time spent today is 80 minutes, 50 minutes in coordination of care discussing with patient other providers management of hypoxia, COPD, RSV, PE
[2023-09-29 13:37] LABS: HCO3 VBG 26 mmol/L (21-28); PCO2 VBG 46 mmHG (40-50); PO2 VBG 45.9 mmHG (25-47); pH VBG 7.358 (7.32-7.43)
[2023-09-29] MEDS: SERTRALINE 100 MG TABLET 200 MG PO (14:32)
[2023-09-29] MEDS: APIXABAN 5 MG TABLET 10 MG PO ×2 (14:33→21:46)
[2023-09-29] MEDS: buPROPion XL 150 MG TABLET PO (14:33)
[2023-09-29] MEDS: METOPROLOL SUCCINATE (XL) 25 MG TAB PO (14:33)
[2023-09-29] MEDS: TRAZODONE HCL 50 MG TABLET 100 MG PO (17:40)
--- NOTE | 2023-09-29 19:13 | PC.NURSE ---
Pt alert and oriented. Pt had complaints of pain 5-6; see emar for intervention. Pt SOB with exertion. Pt chronically on 3 Liters at night time at home. Pt is on 2 Liters currently and saturations have maintained 89-92%;. goal is 88-92% per RT. PT has been using aerobika frequently through out day. Pt is a SBA due to exertion with activity.
[2023-09-30] MEDS: OxyCODONE/APAP 5-325 TABLET PO ×3 (05:31→21:02)
[2023-09-30] MEDS: LEVOTHYROXINE 112 MCG TABLET PO (06:57)
[2023-09-30 07:45] VITALS: BP 133/80; PULSE 84; RESP 18; TEMP 36.1; O2SAT 92
--- NOTE | 2023-09-30 07:47 | PC.NURSE ---
Pt alllowed to sleep thru the night and this am states she feels so much better. VSS she is on 2L O2 per nasal canula. Up I in her room. Lung sounds course with exp wheezes.Encourage use of aerobika.
[2023-09-30] MEDS: predniSONE 20 MG TABLET 40 MG PO (07:53)
[2023-09-30] MEDS: METOPROLOL SUCCINATE (XL) 25 MG TAB PO (09:24)
[2023-09-30] MEDS: IPRAT-ALBUT 0.5-2.5 MG/3 ML NEB 1 NEB IH ×4 (09:24→21:00)
[2023-09-30] MEDS: FUROSEMIDE 40 MG TABLET PO (09:24)
[2023-09-30] MEDS: buPROPion XL 150 MG TABLET PO (09:24)
[2023-09-30] MEDS: SERTRALINE 100 MG TABLET 200 MG PO (09:25)
[2023-09-30] MEDS: APIXABAN 5 MG TABLET 10 MG PO ×2 (09:25→21:01)
[2023-09-30] MEDS: Umeclidinium-Vilanterol [Anoro Ellipta] 62.5-25 mcg/actuation IH (09:25)
[2023-09-30] MEDS: SODIUM CHLORIDE 0.9 % (FLUSH) 10 ML SYRINGE 5 ML IVF ×2 (09:26→21:02)
--- NOTE | 2023-09-30 09:45 | PM.IMPN1 ---
Progress Note: A&P Assessment and plan (1) RSV (respiratory syncytial virus pneumonia): Problem details: - likely the cause of her COPD exacerbation and acute on chronic hypoxia Status: Acute (2) Acute and chronic respiratory failure with hypoxia: Problem details: - appears to be more likely due to RSV than recurrent pulmonary embolism Status: Acute (3) Pulmonary embolism: Problem details: - history of PE associated with rib fracture in the past, + resolution - recurrent PE noted on admission 09/29/23 - restarted Eliquis, probably lifelong anticoagulation Status: Acute (4) COPD exacerbation: Problem details: - Acute on chronic COPD, wears home O2 at night, Currently needing oxygen during the day - treat with Inhaled bronchodilators, Prednisone (09/29), Azithromycin (09/29), oxygen - RT following Status: Acute Plan - per above - continue Eliquis - home when back to baseline oxygen requirement and able to perform ADLs without significant symptomatology Subjective Date Seen: 09/30/23 Interval history: Nasreen is feeling better today, still not back to baseline. Feels weak and dyspneic with exertion. Requiring 2L of supplemental oxygen during the day (typically only wears at night). No Chest pain. Tolerating po intake, tolerating Eliquis for recurrent PE. Exam Narrative: Exam Narrative: GEN: Alert and sitting comfortably in bed, wearing supplemental oxygen HEENT: EOMIs bilaterally, no scleral icterus CV: Regular rate and rhythm R: Coarse bibasilar rhonchi Skin: No concerning skin lesions or rashes on exposed skin Neuro: Nonfocal Psych: Appropriate Const: Vital Signs, click to edit/add: Vital Signs - 24 hr 09/29/23 09:50 09/29/23 10:20 09/29/23 11:15 Temperature 97.7 F 98.0 F Pulse Rate [Pulse Oximeter] 80 84 Respiratory Rate 24 24 20 Blood Pressure [Le ft Arm] 153/100 H 144/80 H Pulse Oximetry 92 92 90 Oxygen Delivery Me thod Nasal Cannula Nasal Cannula [place] Nasal Ca nnula Oxygen Flow Rate 2 2 2 09/29/23 14:50 09/29/23 14:50 09/29/23 20:04 Temperature 98.5 F 97.6 F Pulse Rate [Pulse Oximeter] 90 91 Respiratory Rate 20 20 20 Blood Pressure [Le ft Arm] 118/72 104/76 Pulse Oximetry 90 92 91 Oxygen Delivery Me thod [place] Nasal Ca nnula Nasal Cannula Nasal Cannula Oxygen Flow Rate 2 2 2 09/30/23 00:38 09/30/23 07:45 09/30/23 07:45 Temperature 97.0 F L Pulse Rate [Pulse Oximeter] 84 Respiratory Rate 18 18 Blood Pressure [Le ft Arm] 133/80 Pulse Oximetry 92 92 Oxygen Delivery Me thod Nasal Cannula Room Air Room Air Oxygen Flow Rate 2 2 2 Labs Labs: Laboratory Results - last 24 hr 09/29/23 13:30 VBG pH 7.358 VBG pCO2 46 VBG pO2 45.9 VBG HCO3 26
[2023-09-30 11:10] VITALS: BP 114/55; PULSE 80; RESP 20; TEMP 35.8; O2SAT 91
[2023-09-30] MEDS: AZITHROMYCIN 250 MG TABLET 500 MG PO (12:35)
[2023-09-30 16:16] VITALS: BP 136/80; PULSE 77; RESP 18; TEMP 36.9; O2SAT 94
--- NOTE | 2023-09-30 18:26 | PC.NURSE ---
Pt alert and oriented. Pt SBA with walker and gait belt. Pt had complaints of pain ranging from 0-8; see EMAR for intervention. Pt napped through most of shift.
[2023-09-30 20:56] VITALS: BP 131/80; PULSE 92; TEMP 36.5; O2SAT 91
[2023-09-30] MEDS: TRAZODONE HCL 50 MG TABLET 100 MG PO (21:01)
[2023-09-30 23:00] VITALS: PULSE 78; O2SAT 91
[2023-10-01] VITALS (7 sets, daily range): BP systolic 124–152; BP diastolic 76–106; PULSE 78–90; RESP 18–20; TEMP 36.5–36.7; O2SAT 86–93
[2023-10-01] MEDS: ALBUTEROL INHALER 2 PUFF IH (03:21)
[2023-10-01] MEDS: OxyCODONE/APAP 5-325 TABLET PO ×3 (03:22→22:11)
[2023-10-01] MEDS: guaiFENesin 100 MG/ML CUP PO ×2 (03:23→20:21)
[2023-10-01] MEDS: LEVOTHYROXINE 112 MCG TABLET PO (06:18)
[2023-10-01 07:31] LABS: Basophils Absolute Auto 0.04 K/uL (0.00-0.30); Basophils Percent Auto 0.5 % (0.0-3.0); Eosinophils Absolute Auto 0.41 K/uL (0.00-0.50); Eosinophils Percent Auto 5.6 % (0.0-7.0); Hematocrit 45.6 % (33.0-51.0); Hemoglobin* 14.5 gm/dL (12.0-16.0); Immature Granulocytes Abs Auto 0.01 K/uL (0.00-0.30); Immature Granulocytes Pct Auto 0.1 %; Lymphocytes Absolute Auto 1.85 K/uL (0.90-2.90); Lymphocytes Percent Auto 25.1 % (20-44); Mean Corpuscular HGB Conc 32 gm/dL (32-36); Mean Corpuscular Hemoglobin 31 pg (26-34); Mean Corpuscular Volume 96 fL (80-100); Monocytes Percent Auto 11.8 % (0.0-11.0); Neutrophils Absolute Auto 4.18 K/uL (1.7-7.0); Neutrophils Percent Auto 56.9 % (42.0-72.0); Platelet Count* 257 K/uL (140-440); RDW Coefficient of Variation % 13.1 % (11.5-15.5); Red Blood Count 4.75 m/uL (4.00-5.20); White Blood Count* 7.36 K/uL (4.50-11.00)
[2023-10-01 07:37] LABS: Slide Review Reflex No
[2023-10-01 07:43] LABS: Chloride* 102 mmol/L (96-114); Sodium* 139 mmol/L (135-149)
[2023-10-01 07:44] LABS: Potassium* 3.2 mmol/L (3.6-5.1)
[2023-10-01 07:46] LABS: Anion Gap 8 mEq/L (7-15); Blood Urea Nitrogen* 32 mg/dL (7-30); Carbon Dioxide* 29 mmol/L (20-32); Est. Creatinine Clearance* 41.97; Estimated Glomerular Filt Rate 59 ml/min
[2023-10-01 07:47] LABS: Calcium* 8.7 mg/dL (8.4-10.6); Glucose* 99 mg/dL (60-115)
[2023-10-01] MEDS: FUROSEMIDE 40 MG TABLET PO (08:05)
[2023-10-01] MEDS: METOPROLOL SUCCINATE (XL) 25 MG TAB PO (08:05)
[2023-10-01] MEDS: SERTRALINE 100 MG TABLET 200 MG PO (08:05)
[2023-10-01] MEDS: predniSONE 20 MG TABLET 40 MG PO (08:05)
[2023-10-01] MEDS: SODIUM CHLORIDE 0.9 % (FLUSH) 10 ML SYRINGE 5 ML IVF ×2 (08:06→20:23)
[2023-10-01] MEDS: APIXABAN 5 MG TABLET 10 MG PO ×2 (09:28→20:22)
[2023-10-01] MEDS: IPRAT-ALBUT 0.5-2.5 MG/3 ML NEB 1 NEB IH ×4 (09:28→20:21)
[2023-10-01] MEDS: Umeclidinium-Vilanterol [Anoro Ellipta] 62.5-25 mcg/actuation IH (09:28)
[2023-10-01] MEDS: buPROPion XL 150 MG TABLET PO (09:28)
--- NOTE | 2023-10-01 12:24 | PM.IMPN1 ---
Progress Note: A&P Assessment and plan (1) Acute and chronic respiratory failure with hypoxia: Problem details: - appears to be more likely due to RSV than recurrent pulmonary embolism Status: Acute (2) RSV (respiratory syncytial virus pneumonia): Problem details: - likely the cause of her COPD exacerbation and acute on chronic hypoxia Status: Acute (3) COPD exacerbation: Problem details: - Acute on chronic COPD, wears home O2 at night, Currently needing oxygen during the day - treat with Inhaled bronchodilators, Prednisone (09/29), Azithromycin (09/29), oxygen - RT following Status: Acute (4) Pulmonary embolism: Problem details: - history of PE associated with rib fracture in the past, + resolution - recurrent PE noted on admission 09/29/23 - restarted Eliquis, probably lifelong anticoagulation Status: Acute Plan - continue treatments per above - home when oxygen needs decrease and able to complete ADLs without significant dyspnea/fatigue - Eliquis for ppx Subjective Date Seen: 10/01/23 Interval history: Nasreen was admitted to the hospital on 09/29 for acute hypoxic respiratory failure in the setting of acute RSV infection. She has known COPD; continues to have dyspnea on exertion. Feels weak. Still requiring 2L of supplemental oxygen during the day (typically only wears at night). No chest pain, + audible wheezing. Tolerating po intake, tolerating Eliquis for recurrent PE. Exam Narrative: Exam Narrative: GEN: Alert, nontoxic, laying comfortably in bed, wearing supplemental oxygen HEENT: EOMIs bilaterally, no scleral icterus CV: Regular rate and rhythm R: Audible wheezing while lying in bed, mild rhonchi B bases Skin: No concerning skin lesions or rashes on exposed skin Neuro: No focal deficits Psych: Appropriate Const: Vital Signs, click to edit/add: Vital Signs - 24 hr 09/30/23 16:16 09/30/23 16:16 09/30/23 20:56 Temperature 98.4 F 97.7 F Pulse Rate [Pulse Oximeter] 77 92 Respiratory Rate 18 18 Blood Pressure [Le ft Arm] 136/80 131/80 Pulse Oximetry 94 94 91 Oxygen Delivery Me thod Nasal Cannula Nasal Cannula Nasal Cannula Oxygen Flow Rate 2 2 2 09/30/23 23:00 09/30/23 23:00 10/01/23 03:00 Temperature 97.7 F Pulse Rate [Pulse Oximeter] 78 78 Respiratory Rate Blood Pressure [Le ft Arm] 132/81 Pulse Oximetry 91 92 Oxygen Delivery Me thod Nasal Cannula Nasal Cannula Oxygen Flow Rate 2 2 10/01/23 07:00 10/01/23 10:43 10/01/23 11:00 Temperature 97.8 F 98.0 F Pulse Rate [Pulse Oximeter] 78 82 Respiratory Rate 18 20 Blood Pressure [Le ft Arm] 124/76 Pulse Oximetry 93 86 L 87 L Oxygen Delivery Me thod Nasal Cannula Nasal Cannula Nasal Cannula Oxygen Flow Rate 2 2 1 Labs Labs: Laboratory Results - last 24 hr 10/01/23 07:16 WBC 7.36 RBC 4.75 Hgb 14.5 Hct 45.6 MCV 96 MCH 31 MCHC 32 RDW Coeff of Yvrose 13.1 Plt Count 257 Neut % (Auto) 56.9 Lymph % (Auto) 25.1 [place] % (Auto) 11.8 H Eos % (Auto) 5.6 Baso % (Auto) 0.5 Neut # (Auto) 4.18 Lymph # (Auto) 1.85 [place] # (Auto) 0.90 Eos # (Auto) 0.41 Baso # (Auto) 0.04 Abs Immat Gran (auto) 0.01 Imm/Tot Granulo (auto) 0.1 Sodium 139 Potassium 3.2 L Chloride 102 Carbon Dioxide 29 Anion Gap 8 BUN 32 H Creatinine 1.0 Estimated Creat Clear 41.97 Estimated GFR 59 Glucose 99 Calcium 8.7
[2023-10-01] MEDS: AZITHROMYCIN 250 MG TABLET 500 MG PO (12:32)
[2023-10-01] MEDS: POTASSIUM BICARB 25 MEQ EFFERVESCENT TAB PO (13:29)
[2023-10-01] MEDS: OMEPRAZOLE 20 MG CAPSULE DR PO (13:29)
--- NOTE | 2023-10-01 14:32 | PC.NURSE ---
[id number] The patient is alert and orientated, although very fatigued throughout the shift. She intermittently slept throughout the day. Chronically on 2L NC at night. Orders to maintain >85%. Currently on 1 L NC. Increased dyspnea with ambulation. Calls appropriately. Dry intermittent coarse cough. Appetite remains stable. Up ad padmini in her room. Bump up the patient to 2L when ambulating. Vanessa NICOLE BSN
[2023-10-01] MEDS: TRAZODONE HCL 50 MG TABLET 100 MG PO (20:23)
[2023-10-01] MEDS: POTASSIUM CHLORIDE 10 MEQ CAPSULE ER 40 MEQ PO (20:23)
[2023-10-02 00:26] VITALS: BP 160/88; PULSE 77; RESP 20; TEMP 36.4; O2SAT 93
[2023-10-02 05:18] VITALS: BP 177/117; PULSE 87; RESP 22; TEMP 36.9; O2SAT 87
--- NOTE | 2023-10-02 05:40 | PC.NURSE ---
[id number]: Patient pleasant and cooperative. SBA w/4ww. Intermittent productive cough. SOB w/activity. Using Aerobika. Appeared to rest well during noc. Afebrile.
[2023-10-02] MEDS: LEVOTHYROXINE 112 MCG TABLET PO (06:27)
[2023-10-02] MEDS: OMEPRAZOLE 20 MG CAPSULE DR PO (06:27)
[2023-10-02 06:40] LABS: HCO3 VBG 31 mmol/L (21-28); PCO2 VBG 48 mmHG (40-50); pH VBG 7.428 (7.32-7.43)
[2023-10-02 06:42] LABS: Basophils Absolute Auto 0.03 K/uL (0.00-0.30); Basophils Percent Auto 0.3 % (0.0-3.0); Eosinophils Absolute Auto 0.28 K/uL (0.00-0.50); Hematocrit 45.7 % (33.0-51.0); Hemoglobin* 14.7 gm/dL (12.0-16.0); Immature Granulocytes Abs Auto 0.02 K/uL (0.00-0.30); Immature Granulocytes Pct Auto 0.2 %; Lymphocytes Absolute Auto 2.16 K/uL (0.90-2.90); Lymphocytes Percent Auto 23.3 % (20-44); Mean Corpuscular HGB Conc 32 gm/dL (32-36); Mean Corpuscular Hemoglobin 31 pg (26-34); Mean Corpuscular Volume 95 fL (80-100); Monocytes Percent Auto 9.3 % (0.0-11.0); Neutrophils Absolute Auto 5.91 K/uL (1.7-7.0); Neutrophils Percent Auto 63.9 % (42.0-72.0); Platelet Count* 317 K/uL (140-440); Red Blood Count 4.82 m/uL (4.00-5.20); White Blood Count* 9.26 K/uL (4.50-11.00)
[2023-10-02] MEDS: guaiFENesin 100 MG/ML CUP PO (06:45)
[2023-10-02 07:00] LABS: Slide Review Reflex No
[2023-10-02 07:22] LABS: Chloride* 103 mmol/L (96-114); Potassium* 4.2 mmol/L (3.6-5.1); Sodium* 138 mmol/L (135-149)
[2023-10-02 07:25] LABS: Anion Gap 4 mEq/L (7-15); Blood Urea Nitrogen* 33 mg/dL (7-30); Carbon Dioxide* 31 mmol/L (20-32); Est. Creatinine Clearance* 41.97; Estimated Glomerular Filt Rate 59 ml/min
[2023-10-02 07:26] LABS: Calcium* 9.6 mg/dL (8.4-10.6); Glucose* 97 mg/dL (60-115)
[2023-10-02] MEDS: predniSONE 20 MG TABLET 40 MG PO (08:29)
[2023-10-02 08:30] VITALS: BP 154/85; PULSE 80; RESP 12; TEMP 36.8; O2SAT 89
[2023-10-02] MEDS: SERTRALINE 100 MG TABLET 200 MG PO (08:36)
[2023-10-02] MEDS: METOPROLOL SUCCINATE (XL) 25 MG TAB PO (08:36)
[2023-10-02] MEDS: buPROPion XL 150 MG TABLET PO (08:36)
[2023-10-02] MEDS: FUROSEMIDE 40 MG TABLET PO (08:36)
[2023-10-02] MEDS: IPRAT-ALBUT 0.5-2.5 MG/3 ML NEB 1 NEB IH ×2 (08:37→12:31)
[2023-10-02] MEDS: SODIUM CHLORIDE 0.9 % (FLUSH) 10 ML SYRINGE 5 ML IVF (08:39)
[2023-10-02] MEDS: APIXABAN 5 MG TABLET 10 MG PO (08:40)
[2023-10-02] MEDS: OxyCODONE/APAP 5-325 TABLET PO ×2 (08:43→15:40)
--- NOTE | 2023-10-02 10:02 | RESP.RT ---
Pt using Aerobika well, reports using it during every commercial on TV. She is on oxygen right now, 2L. She uses home oxygen at night. Discussed with her that she might need to wear it around the clock. At this time she is not in agreement with that. Continue aerobika and IS, Assess need for oxygen closer to DC, and discuss with her then.
[2023-10-02 11:04] VITALS: BP 135/83; PULSE 90; RESP 14; TEMP 36.7; O2SAT 91
[2023-10-02] MEDS: AZITHROMYCIN 250 MG TABLET 500 MG PO (12:31)
--- NOTE | 2023-10-02 14:14 | PC.NURSE ---
End of Shift: Patient pleasant and cooperative. Patient vitally stable, lungs clear, BS WNL, IV removed, catheter intact. Patient on 2 L nasal cannula with stats in upper 80's/ low 90's. Patient independent in room. Patient reports back pain this morning then requested 2 pain tablet, since then patient denies pain. Patient tolerating regular diet. Patient urinating and had 1 BM.
--- NOTE | 2023-10-02 17:17 | P.DS_ITS ---
DS: Providers Provider Date Seen: 10/02/23 Date of admission: 09/29/23 09:36 Primary care physician: Jannie Giordano [facility] Admitting Clinician: Jacob Pandya MD Consults: OT, PT, RT Attending Physician on discharge: Yaneli Calvillo MD Date of Discharge: 10/02/23 DS: Diagnosis Discharge Diagnosis (1) Acute and chronic respiratory failure with hypoxia: Status: Acute Problem details: - multifactorial: RSV, known COPD, recurrent PE (2) RSV (respiratory syncytial virus pneumonia): Status: Acute Problem details: - likely the cause of her COPD exacerbation and acute on chronic hypoxia (3) COPD exacerbation: Status: Acute Problem details: - Acute on chronic COPD, wears home O2 at night, needed it during the day during hospitalization - treat with Inhaled bronchodilators, Prednisone (09/29), Azithromycin (09/29), oxygen - RT following (4) Pulmonary embolism: Status: Acute Problem details: - history of PE associated with rib fracture in the past, + resolution - recurrent PE noted on admission 09/29/23 - restarted Eliquis, probably lifelong anticoagulation (will discuss with PCP during f/u) DS: Summary Hospital Course Hospital Course: Nasreen presented to the hospital on 09/29 with acute on chronic hypoxic respiratory failure in the setting of +RSV infection and recurrent PE. She was treated with supplemental oxygen, steroids, anticoagulation. Seen by therapies and back to baseline on day #3, requesting discharge home. Has supplemental oxygen at night, will wear during the day upon discharge (requiring 1-2L while hospitalized). She will complete steroid taper and new Rx for Eliquis sent to pharmacy. Follow-up with PCP next week, reviewed return precautions. Status at Discharge Functional status at discharge: independent ambulation Overall status at discharge: patient is progressing back to baseline Time Spent with Patient Time attestation: Total time spent providing and/or coordinating discharge services: Time spent: Greater than 30 minutes Specific discharge activities: Medication reconciliation, patient education Exam Narrative: Exam Narrative: GEN: Alert and oriented, speaking in full sentences, no tachypnea at rest HEENT: EOMIs bilaterally, no scleral icterus CV: RRR, No concerning murmurs, rubs, or gallops R: Mild expiratory wheezing at bilateral apices, clears with deep breath, air movement adequate Ext: wwp, no concerning edema Skin: No concerning skin lesions or rashes on exposed skin Neuro: Nonfocal Psych: Appropriate Const: Vital Signs, click to edit/add: Vital Signs - 24 hr 10/01/23 19:00 10/01/23 23:00 10/02/23 00:26 Temperature 98.1 F 97.6 F Pulse Rate [Pulse Oximeter] 89 77 Respiratory Rate 20 20 20 Blood Pressure [Le ft Arm] 152/106 H 160/88 H Blood Pressure [Ri ght Arm] Pulse Oximetry 90 91 93 Oxygen Delivery Me thod Nasal Cannula Nasal Cannula Nasal Cannula Oxygen Flow Rate 2 2.0 2.0 10/02/23 05:18 10/02/23 08:30 10/02/23 08:30 Temperature 98.4 F 98.2 F Pulse Rate [Pulse Oximeter] 87 80 80 Respiratory Rate 22 12 12 Blood Pressure [Le ft Arm] 177/117 H Blood Pressure [Ri ght Arm] 154/85 H Pulse Oximetry 87 L 89 Oxygen Delivery Me thod Nasal Cannula Nasal Cannula Oxygen Flow Rate 2.0 2 10/02/23 08:30 10/02/23 11:04 Temperature 98.1 F Pulse Rate [Pulse Oximeter] 90 Respiratory Rate 12 14 Blood Pressure [Le ft Arm] Blood Pressure [Ri ght Arm] 135/83 Pulse Oximetry 89 91 Oxygen Delivery Me thod Nasal Cannula Nasal Cannula Oxygen Flow Rate 2 2 DS: Data Data Completed and Pending Completed studies during hospitalization: INDICATION: Shortness of breath, infiltrates. TECHNIQUE: CT chest PE was acquired with 75 cc Omnipaque 350 IV contrast. COMPARISON: July 12, 2022. FINDINGS: Heart and vasculature: Contrast opacification of the pulmonary arterial tree is adequate. Acute left lower lobar pulmonary embolism (series 2/image 47), not seen on prior study. Prominent heart size. Coronary artery calcifications. Thoracic aorta and pulmonary artery are normal in caliber. Lungs and pleura: Pulmonary emphysema. No focal consolidations. No pleural effusions, pleural thickening, or pneumothorax. Lymph nodes/mediastinum: No mediastinal, hilar, or axillary adenopathy. Chest wall: No masses. Upper abdomen: Incidental 1.3 centimeter pancreatic tail cystic lesion. No acute or significant findings. Bones: Stable multifocal chronic vertebral compression deformities. IMPRESSION: Acute left lower lobar pulmonary embolism, not seen on prior study. No right heart strain. Pulmonary emphysema. Persistent mosaic attenuation throughout the lungs, likely related small vessel/airway disease. No focal consolidations. Case discussed with Dr. Panyda at 1:20 p.m. on 09/29/2023. Please note that all CT scans at this facility use dose modulation, iterative reconstruction, and/or weight-based dosing when appropriate to reduce radiation dose to as low as reasonably achievable. Dictated by Darian Koo MD @ 09/29/2023 1:19:48 PM Labs on day of discharge: Labs from last 24 hours 10/02/23 06:25 WBC 9.26 RBC 4.82 Hgb 14.7 Hct 45.7 MCV 95 MCH 31 MCHC 32 RDW Coeff of Yvrose 13.0 Plt Count 317 Neut % (Auto) 63.9 Lymph % (Auto) 23.3 [place] % (Auto) 9.3 Eos % (Auto) 3.0 Baso % (Auto) 0.3 Neut # (Auto) 5.91 Lymph # (Auto) 2.16 [place] # (Auto) 0.90 Eos # (Auto) 0.28 Baso # (Auto) 0.03 Abs Immat Gran (auto) 0.02 Imm/Tot Granulo (auto) 0.2 VBG pH 7.428 VBG pCO2 48 VBG pO2 45.0 VBG HCO3 31 H Sodium 138 Potassium 4.2 Chloride 103 Carbon Dioxide 31 Anion Gap 4 L BUN 33 H Creatinine 1.0 Estimated Creat Clear 41.97 Estimated GFR 59 Glucose 97 Calcium 9.6 Discharge Plan Discharge Disposition: Home, Self-Care Date of Admission: 09/29/23 09:36 Attending Provider on Discharge: Yaneli Calvillo Primary Care Provider: Provider,Not a Local Condition: Stable Anticipated Discharge Date/Time: 10/02/23 13:00 Discharge Medications: New Eliquis 5 mg Tablet 5 mg PO BID Qty: 70 0RF Rx Instructions: 2 tabs (10mg) BID for 3 more days. On October 06, start 1tab (5mg) BID prednisone 10 mg tablet 10 mg PO DIRECTED 17 Days Qty: 17 0RF Rx Instructions: 4 tabs for 4d, then 3 tabs po x3d, then 2tabs po x3d, then 1 tab po x7d Continued furosemide 40 mg tablet 40 mg PO DAILY trazodone 50 mg tablet 100 mg PO QPM sertraline 100 mg tablet 200 mg PO DAILY liothyronine 5 mcg tablet 5 mcg PO BID oxycodone-acetaminophen 10-325 mg tablet 1 tab PO Q4-6H PRN (Reason: pain) metoprolol succinate 25 mg tablet extended release 24 hr 25 mg PO DAILY levothyroxine 112 mcg tablet 112 mcg PO DAILY Anoro Ellipta 62.5-25 mcg/actuation blister with device 1 ea INHALATION DAILY bupropion HCl 150 mg tablet extended release 24 hr 150 mg PO QAM albuterol sulfate 90 mcg/actuation HFA aerosol inhaler 2 puff inhalation Q6-8H PRN (Reason: bronchospasm) Qty: 18 0RF Discharge Orders: Discharge Order (Routine); Ordered 10/02/23 Ordered By: Yaneli Calvillo Patient Education: Prednisone (By mouth), Apixaban (By mouth), RSV (Respiratory Syncytial Virus) (DC) Additional Instructions: Wear your oxygen during the day until you're fully recovered from this illness. Prednisone (steroid) and Eliquis (Blood thinner) at [employer]. Pickup a PULSE OXIMETER while you're there. You should keep your oxygen saturation >86-88% with oxygen supplementation. See Dr. Giordano as scheduled - you must come back and see us if you have any worsening or new symptoms. Activity Level: No strenuous activity Discharge Diet: Regular Follow Up Appointments: Provider,Not a Local [Primary Care Provider] - (Please call to make follow-up appointment with Jannie Giordano DO ([facility] - phone number [phone]) in 7-10 days. (Regarding recurrent PE, RSV infection, COPD exacerbation)) Forms: [email or web address] Info Instructions
--- NOTE | 2023-10-05 20:27 | ED_ITS ---
HPI - General Adult General Date Seen: 09/29/23 Chief complaint: Shortness of Breath/Dyspnea Stated complaint: trouble breathing Time Seen by Provider: 09/29/23 07:04 Source: patient Mode of arrival: EMS Limitations: no limitations History of Present Illness HPI narrative: 73-year-old female brought in by EMS with worsening shortness of breath over the past three days. No documented fever. She has COPD and is on home oxygen overnight. She lives in [place] but gets her medical care in [place]. We do not have any records here. She denies any known exposure to COVID or influenza. She lives with her son. She does not have a medication list with her. Shortness of breath has kept her from sleeping. Related Data Home Medications Medication Instructions Recorded Confirmed furosemide 40 mg tablet 40 mg PO DAILY 02/28/23 09/29/23 levothyroxine 112 mcg tablet 112 mcg PO DAILY 02/28/23 09/29/23 liothyronine 5 mcg tablet 5 mcg PO BID 02/28/23 09/29/23 metoprolol succinate 25 mg 25 mg PO DAILY 02/28/23 09/29/23 tablet,extended release 24 hr oxycodone-acetaminophen 10 mg-325 1 tab PO Q4-6H PRN pain 02/28/23 09/29/23 mg tablet sertraline 100 mg tablet 200 mg PO DAILY 02/28/23 09/29/23 trazodone 50 mg tablet 100 mg PO QPM 02/28/23 09/29/23 umeclidinium 62.5 mcg-vilanterol 1 ea inhalation DAILY 02/28/23 02/28/23 25 mcg/actuation powdr for inhalation (Anoro Ellipta) bupropion HCl 150 mg 24 hr tablet, 150 mg PO QAM 09/29/23 09/29/23 extended release Previous Rx's Medication Instructions Recorded albuterol sulfate 90 mcg/actuation 2 puff inhalation Q6-8H PRN 07/04/22 aerosol inhaler bronchospasm #18 ea apixaban 5 mg tablet (Eliquis) 5 mg PO BID #70 tabs 10/02/23 prednisone 10 mg tablet 10 mg PO DIRECTED 17 days #17 10/02/23 tabs Allergies Allergy/AdvReac Type Severity Reaction Status Date / Time aspirin AdvReac Verified 05/30/23 15:15 Review of Systems Narrative: She is on medications for anxiety and thyroid as well as inhalers and nebs. He is uncertain of the dose or name of any of these. She is chronically short of breath. She denies chest pain. No GI or issues. Review of systems is otherwise negative. [facility] Medical History (Updated 10/02/23 @ 17:20 by Yaneli Calvillo MD) Pulmonary embolism ?I26.99 - Other pulmonary embolism without acute cor pulmonale (ICD-10) Graves disease ?E05.00 - Thyrotoxicosis with diffuse goiter without thyrotoxic crisis or storm (ICD-10) GERD (gastroesophageal reflux disease) ?K21.9 - Gastro-esophageal reflux disease without esophagitis (ICD-10) Anxiety ?F41.9 - Anxiety disorder, unspecified (ICD-10) Depression ?F32.A - Depression, unspecified (ICD-10) Stage 3 chronic kidney disease ?N18.30 - Chronic kidney disease, stage 3 unspecified (ICD-10) Hyperlipidemia ?E78.5 - Hyperlipidemia, unspecified (ICD-10) Chronic back pain ?M54.9 - Dorsalgia, unspecified (ICD-10) ?G89.29 - Other chronic pain (ICD-10) Peptic ulcer disease ?K27.9 - Peptic ulcer, site unspecified, unspecified as acute or chronic, without hemorrhage or perforation (ICD-10) Meningioma ?D32.9 - Benign neoplasm of meninges, unspecified (ICD-10) Hypothyroidism ?E03.9 - Hypothyroidism, unspecified (ICD-10) Hypertension ?I10 - Essential (primary) hypertension (ICD-10) Acute and chronic respiratory failure with hypoxia ?J96.21 - Acute and chronic respiratory failure with hypoxia (ICD-10) Congestive heart failure ?I50.9 - Heart failure, unspecified (ICD-10) Bronchospasm ?J98.01 - Acute bronchospasm (ICD-10) Surgical History (Updated 09/29/23 @ 13:51 by Jacob Pandya MD) History of Ghislaine-en-Y gastric bypass ?Z98.84 - Bariatric surgery status (ICD-10) History of hip replacement ?Z96.649 - Presence of unspecified artificial hip joint (ICD-10) H/O abdominal hysterectomy ?Z90.710 - Acquired absence of both cervix and uterus (ICD-10) History of partial gastrectomy ?Z90.3 - Acquired absence of stomach [part of] (ICD-10) Status post coil embolization of cerebral aneurysm ?Z98.890 - Other specified postprocedural states (ICD-10) Total knee replacement status ?Z96.659 - Presence of unspecified artificial knee joint (ICD-10) Status post appendectomy ?Z90.49 - Acquired absence of other specified parts of digestive tract (ICD- 10) Status post cholecystectomy ?Z90.49 - Acquired absence of other specified parts of digestive tract (ICD- 10) Family History (Updated 09/29/23 @ 13:53 by Jacob Pandya MD) Brother Alcohol dependence Father Colon cancer Other Breast cancer Social History (Updated 09/29/23 @ 13:54 by Jacob Pandya MD) Narrative: She lives in [place]. Her son Cm lives with her. He is healthcare power of workers compensation defense attorney. She gets healthcare through [facility], Dr. Jannie Giordano. Quit smoking in 2008. Rarely drinks alcohol. Code status is DNR DNI What is your current living situation?: I presently have a place to live Problems where you live: no known problems Problems where you live details: NA In the past 12 months, utilities in danger of being shut off: no In past 12 months, lack of transportation kept you from medical appts, meetings, work, or getting things needed for daily living: no In the past 12 mos, have been you worried that your food would run out before you had money to buy more?: never true In the past 12 mos, the food you bought just didn't last and you didn't have money to buy more?: never true Highest level of school completed/degree received: high school graduate Smoking Status: Former smoker Do you use any of these nicotine containing products: None Second hand tobacco smoke exposure: No How often do you have a drink containing alcohol: monthly or less Alcohol type: wine How often do you have six or more drinks on one occasion: Never AUDIT-C Alcohol total score: 1 Non-prescribed substance use: denies use Caffeine: No How often does anyone, including family, friends and others, physically hurt you : never How often does anyone, including family, friends and others, insult or talk down to you: never How often does anyone, including family, friends and others, threaten you with harm: never How often does anyone, including family, friends and others, scream or curse at you: never service: No Exam Narrative: Exam Narrative: Vitals noted it takes 3 L of oxygen to get her sats above 90% HEENT: Conjunctiva clear. Tympanic membranes are pearly white bilaterally. Posterior pharynx is clear without erythema or exudate. Neck is supple without adenopathy, thyromegaly, carotid bruit. Lungs: Greatly diminished with inspiratory and expiratory wheezes and a prolonged expiratory phase. No localizing rales. Heart: Distant but Regular rate and rhythm without murmur. Abdomen: Thin, Soft and nontender. No guarding, rigidity, rebound. Bowel sounds are normal. No palpable masses. Extremities: No cyanosis or edema. Good distal pulses. Skin: No abnormalities noted of the exposed skin. Neurologic: Neurologic exam is nonfocal. Course Course ED Course: Patient seen and examined. Labs and chest x-ray are ordered. She is given Solu-Medrol 80 mg IV and a DuoNeb. Reevaluation(s) Reevaluation #1: CBC and BMP are normal. D-dimer is weekly positive. ProBNP is elevated. Triple swab is positive for RSV but negative for COVID and influenza. Chest x- ray shows diffuse infiltrates consistent with congestive heart failure. Underlying emphysematous changes also noted. CT of the chest is pending. Reevaluation #2: I spoke with Dr. Pandya who kindly agrees to admit the patient to the hospital for further workup and treatment. We have sent a release to her provider in [place] to try to get some medical history and current medication list. Vital Signs Vital signs: Initial Vital Signs Temperature 98.0 F 09/29/23 07:03 Temperature Source Temporal Artery Scan 09/29/23 07:03 Pulse Rate 90 09/29/23 07:03 Respiratory Rate 28 H 09/29/23 07:03 Blood Pressure 135/78 09/29/23 07:03 Blood Pressure Mean 97 09/29/23 07:03 Blood Pressure Position Sitting 09/29/23 07:03 Pulse Oximetry 90 09/29/23 07:03 Oxygen Delivery Method Nasal Cannula 09/29/23 07:03 Oxygen Flow Rate 3 09/29/23 07:03 Vital Signs Temperature 98.0 F 09/29/23 07:03 Pulse Rate 90 09/29/23 07:03 Respiratory Rate 28 H 09/29/23 07:03 Blood Pressure 135/78 09/29/23 07:03 Pulse Oximetry 90 09/29/23 07:03 Oxygen Delivery Method Nasal Cannula 09/29/23 07:03 Oxygen Flow Rate 3 09/29/23 07:03 Temperature 98.1 F 10/02/23 11:04 Pulse Rate 90 10/02/23 11:04 Respiratory Rate 14 10/02/23 11:04 Blood Pressure 135/83 10/02/23 11:04 Pulse Oximetry 91 10/02/23 11:04 Oxygen Delivery Method Nasal Cannula 10/02/23 11:04 Oxygen Flow Rate 2 10/02/23 11:04 Medications Administered Medications: Discontinued Medications Generic Name Dose Route Start Last Admin Trade Name Freq PRN Reason Stop Dose Admin Albuterol 2 puff 09/29/23 11:24 10/01/23 03:21 Albuterol Inhaler IH 2 puff Q6-8H PRN Administration bronchospasm Albuterol/Ipratropium 1 neb 09/29/23 07:20 09/29/23 07:31 Iprat-Albut 0.5-2.5 Mg/3 Ml Neb IH 09/29/23 07:21 1 neb ONCE ONE Administration Albuterol/Ipratropium 1 neb 09/29/23 13:00 10/02/23 12:31 Iprat-Albut 0.5-2.5 Mg/3 Ml Neb IH 1 neb QID DYLAN Administration Apixaban 10 mg 09/29/23 13:40 10/02/23 08:40 Apixaban 5 Mg Tablet PO 10 mg BID DYLAN Administration Azithromycin 500 mg 09/29/23 12:30 10/02/23 12:31 Azithromycin 250 Mg Tablet PO 500 mg Q24H DYLAN Administration Bupropion HCl 150 mg 09/29/23 14:00 10/02/23 08:36 Bupropion Xl 150 Mg Tablet PO 150 mg QAM DYLAN Administration Furosemide 40 mg 09/29/23 07:39 09/29/23 07:46 Furosemide 10 Mg/Ml Inj IVP 09/29/23 07:40 40 mg ONCE ONE Administration Furosemide 40 mg 09/30/23 09:00 10/02/23 08:36 Furosemide 40 Mg Tablet PO 40 mg DAILY DYLAN Administration Guaifenesin 100 - 200 mg 10/01/23 02:51 10/02/23 06:45 Guaifenesin 100 Mg/Ml Cup PO 200 mg Q4H PRN Administration Cough Levothyroxine Sodium 112 mcg 09/30/23 07:00 10/02/23 06:27 Levothyroxine 112 Mcg Tablet PO 112 mcg DAILY@0700 DYLAN Administration Methylprednisolone Sodium Succinate 80 mg 09/29/23 07:20 09/29/23 07:31 Methylprednisolone Sod Succ 62.5 Mg/Ml (125) IVP 09/29/23 07:21 80 mg ONCE ONE Administration Metoprolol Succinate 25 mg 09/29/23 14:00 10/02/23 08:36 Metoprolol Succinate (Xl) 25 Mg Tab PO 25 mg DAILY DYLAN Administration Umeclidinium- 0 each 09/30/23 09:00 10/02/23 08:38 Vilanterol [Anoro IH Not Given Ellipta] 62.5-25 Mcg DAILY DYLAN /Actuation Liothyronine 5 Mcg 0 mcg 09/30/23 07:00 10/02/23 06:27 Tablet PO 10 mcg DAILY@0700 DYLAN Administration Omeprazole 20 mg 10/01/23 12:30 10/01/23 13:29 Omeprazole [address] PO 10/01/23 12:31 20 mg ONCE ONE Administration Omeprazole 20 mg 10/02/23 07:00 10/02/23 06:27 Omeprazole [address] PO 20 mg DAILY@0700 DYLAN Administration Oxycodone/Acetaminophen 1 - 2 tab 09/29/23 13:22 10/02/23 15:40 Oxycodone/Apap 5-325 Tablet PO 2 tab Q6H PRN Administration Potassium Bicarbonate 25 meq 10/01/23 12:31 10/01/23 13:29 Potassium Bicarb 25 Meq Effervescent Tab PO 10/01/23 12:32 25 meq ONCE ONE Administration Potassium Chloride 40 meq 10/01/23 21:00 10/01/23 20:23 Potassium Chloride 10 Meq Capsule Er PO 10/01/23 21:01 40 meq ONCE ONE Administration Prednisone 40 mg 09/30/23 08:00 10/02/23 08:29 Prednisone 20 Mg Tablet PO 40 mg DAILYWM DYLAN Administration Sertraline HCl 200 mg 09/29/23 14:00 01/01/24 08:36 Sertraline 100 Mg Tablet PO 200 mg DAILY DYLAN Administration Sodium Chloride 5 ml 09/29/23 21:00 10/02/23 08:39 Sodium Chloride 0.9 % (Flush) 10 Ml Syringe IVF 5 ml BID DYLAN Administration Trazodone HCl 100 mg 09/29/23 18:00 09/29/23 17:40 Trazodone Hcl 50 Mg Tablet PO 100 mg QPM DYLAN Administration Trazodone HCl 100 mg 09/30/23 21:00 10/01/23 20:23 Trazodone Hcl 50 Mg Tablet PO 100 mg HS DYLAN Administration Medical Decision Making Lab Data Labs: Lab Results 09/29/23 09/29/23 09/29/23 Range/Units 07:18 07:49 08:15 WBC 9.31 (4.50-11.00) K/uL RBC 5.05 (4.00-5.20) m/uL Hgb 15.3 (12.0-16.0) gm/dL Hct 49.0 (33.0-51.0) % MCV 97 (80-100) fL MCH 30 (26-34) pg MCHC 31 L (32-36) gm/dL RDW Coeff of Yvrose 12.9 (11.5-15.5) % Plt Count 255 (140-440) K/uL Neut % (Auto) 74.7 H (42.0-72.0) % Lymph % (Auto) 11.1 L (20-44) % [place] % (Auto) 11.1 H (0.0-11.0) % Eos % (Auto) 2.6 (0.0-7.0) % Baso % (Auto) 0.4 (0.0-3.0) % Neut # (Auto) 7.00 (1.7-7.0) K/uL Lymph # (Auto) 1.00 (0.90-2.90) K/uL [place] # (Auto) 1.00 H (0.00-0.90) K/UL Eos # (Auto) 0.24 (0.00-0.50) K/uL Baso # (Auto) 0.04 (0.00-0.30) K/uL Abs Immat Gran (auto) 0.01 (0.00-0.30) K/uL Imm/Tot Granulo (auto) 0.1 % D-Dimer Quant (PE/DVT) 0.51 H (0.00-0.50) ug/ml Sodium 135 (135-149) mmol/L Potassium 4.3 (3.6-5.1) mmol/L Chloride 102 (96-114) mmol/L Carbon Dioxide 24 (20-32) mmol/L Anion Gap 9 (7-15) mEq/L BUN 17 (7-30) mg/dL Creatinine 1.0 (0.5-1.5) mg/dL Estimated Creat Clear 41.97 Estimated GFR 59 ml/min Glucose 122 H (60-115) mg/dL Lactate 1.1 (0.5-1.9) mmol/L Calcium 8.8 (8.4-10.6) mg/dL Troponin I < 0.01 L (0.01-0.04) ng/mL NT-Pro-B Natriuret Pep 2210 pg/mL Procalcitonin 0.12 (<0.50) ng/mL SARS-CoV-2 (PCR) Negative SARS-CoV-2 (Negative) Influenza Type A (PCR) Negative PCR FLU A (Negative) Influenza Type B (PCR) Negative PCR FLU B (Negative) RSV (PCR) POSITIVE PCR RSV A (Negative) Lab Acknowledgement Test Added 09/29/23 Range/Units 08:15 WBC (4.50-11.00) K/uL RBC (4.00-5.20) m/uL Hgb (12.0-16.0) gm/dL Hct (33.0-51.0) % MCV (80-100) fL MCH (26-34) pg MCHC (32-36) gm/dL RDW Coeff of Yvrose (11.5-15.5) % Plt Count (140-440) K/uL Neut % (Auto) (42.0-72.0) % Lymph % (Auto) (20-44) % [place] % (Auto) (0.0-11.0) % Eos % (Auto) (0.0-7.0) % Baso % (Auto) (0.0-3.0) % Neut # (Auto) (1.7-7.0) K/uL Lymph # (Auto) (0.90-2.90) K/uL [place] # (Auto) (0.00-0.90) K/UL Eos # (Auto) (0.00-0.50) K/uL Baso # (Auto) (0.00-0.30) K/uL Abs Immat Gran (auto) (0.00-0.30) K/uL Imm/Tot Granulo (auto) % D-Dimer Quant (PE/DVT) (0.00-0.50) ug/ml Sodium (135-149) mmol/L Potassium (3.6-5.1) mmol/L Chloride (96-114) mmol/L Carbon Dioxide (20-32) mmol/L Anion Gap (7-15) mEq/L BUN (7-30) mg/dL Creatinine (0.5-1.5) mg/dL Estimated Creat Clear Estimated GFR ml/min Glucose (60-115) mg/dL Lactate (0.5-1.9) mmol/L Calcium (8.4-10.6) mg/dL Troponin I (0.01-0.04) ng/mL NT-Pro-B Natriuret Pep pg/mL Procalcitonin (<0.50) ng/mL SARS-CoV-2 (PCR) (Negative) Influenza Type A (PCR) (Negative) Influenza Type B (PCR) (Negative) RSV (PCR) (Negative) Lab Acknowledgement Test Added Discharge Plan Discharge Clinical Impression: Congestive heart failure, COPD exacerbation, RSV bronchitis Patient Disposition: Admitted As Inpatient Condition: Stable Activity Level: No strenuous activity Discharge Diet: Regular
--- NOTE | 2023-10-06 15:26 | PC.NURSE ---
Post discharge call back-- Received message to clarify patient's discharge to clarify patient's discharge medications. Attempted to contact pt's pharmacy and waited on hold in excess of 15 minutes with no answer. Attempted to call patient and left voicemail message.
--- NOTE | 2023-10-07 13:22 | PC.NURSE ---
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 Pt was also on the line and gave permission to discuss her care. Looking at previous note, it appears staffing attempted to contact the pharmacy yesterday and was unable to connect and a message was left to family to return call to unit, which had not been returned. This director underwriter sales contacted [facility] in [facility] in [place], after several minutes phone call was answered by pharmacist. Pharmacist wanted to clarify qty as it did not match directions. Directions appeared to be written for a 17 fay taper, but qty was sent as 17 tabs. This director underwriter sales confirmed per eMAR that the qty was sent for 17 days, which matched the directions. Pharmacy stated they would now fill the RX and that it would be ready for pt after 1500 today. Called Cm and updated him with this information. Cm was appreciative and had no other questions this director underwriter sales could answer.
--- NOTE | 2023-10-07 16:30 | PC.NURSE ---
Addendum entered by Kika Oates RN 10/07/23 18:59: edited to add: Pt stated she needed to use her O2 during the day because of her persistent cough. Original Note: Pt's son, Cm, called at 1530 stating that [facility] [place] is now saying they will not fill the RX without a new RX from . [facility] pharmacist has not contacted unit or this movie writer since this movie writer spoke with him per last note. Cm was again quite upset. Spoke with Dr Pandya to see if a new RX could be sent. Per Dr Pandya, if pt has been off her prednisone for this long she no longer needs it and if she is worse, she to be seen with by her primary or ER. Called and spoke directly to pt. She states that she is feeling worse and is needing to use her nighttime O2 during the day at 2L. Pt states she cannot go to her doctor because she does not have the oxygen to get there. Offered pt to come into the ER and pt stated the same reason that she is unable to come back to the ER. Continued to state that she needed the prednisone sent in. Stated the pharmacy told her they had been trying to contact the hospital since Monday. This movie writer stated per her chart it did not appear that pharmacy called. Spoke to son and he was given the same information and options for care. Cm stated he is very upset with the hospital and the pharmacy because his mother is suffering. Apologized to Cm and offered him the pt advocates number. Cm would like the pt advocate to cont him instead. Will pass on information.
== END 2023-10-02 15:48 | disposition home or self-care (01) | DRG 193 ==
LOC: ED 08:05 → MEDSURG 09:37
PROVIDERS: Family Medicine; Admitting Provider Family Medicine; Emergency Provider Family Medicine; Visit Provider Family Medicine
DX: J12.1 Respiratory syncytial virus pneumonia (principal); I26.99 Other pulmonary embolism without acute cor pulmonale; J96.21 Acute and chronic respiratory failure with hypoxia; J44.0 Chronic obstructive pulmonary disease with (acute) lower respiratory infection; J44.1 Chronic obstructive pulmonary disease with (acute) exacerbation; G47.33 Obstructive sleep apnea (adult) (pediatric); I12.9 Hypertensive chronic kidney disease with stage 1 through stage 4 chronic kidney disease, or unspecified chronic kidney disease; N18.30 Chronic kidney disease, stage 3 unspecified; Z99.81 Dependence on supplemental oxygen; G89.29 Other chronic pain; Z86.711 Personal history of pulmonary embolism; Z79.01 Long term (current) use of anticoagulants; F41.9 Anxiety disorder, unspecified; F32.A Depression, unspecified; K21.9 Gastro-esophageal reflux disease without esophagitis; Z98.84 Bariatric surgery status; E05.00 Thyrotoxicosis with diffuse goiter without thyrotoxic crisis or storm; E78.5 Hyperlipidemia, unspecified; Z79.891 Long term (current) use of opiate analgesic
CPT/HCPCS: 36415; 71045; 71260; 80048; 82803; 83605; 83880; 84145; 84484; 85025; 85379; 87631; 93005; 94640; 94664; 94761; 97110; 97116; 97162; 97165; 97530; 97535; 99283; 99285; A9270; J1940; J2930; J7512; Q9967

== ENCOUNTER 2023-11-22 10:07 | Outpatient (CLI) | payer MEDICARE, BC, SELFPAY | END 2023-11-22 10:08 | disposition home or self-care (01) | LOC: AMB 12-08 13:04 | PROVIDERS: Visit Provider Family Medicine | DX: S49.91XA Unspecified injury of right shoulder and upper arm, initial encounter (principal); S09.93XA Unspecified injury of face, initial encounter; W18.30XA Fall on same level, unspecified, initial encounter; Y92.009 Unspecified place in unspecified non-institutional (private) residence as the place of occurrence of the external cause | CPT/HCPCS: A0425; A0427 ==

== ENCOUNTER 2023-11-22 10:51 | Emergency (ER) | payer MEDICARE, BC, SELFPAY ==
[2023-11-22] VITALS (24 sets, daily range): BP systolic 117–208; BP diastolic 78–143; PULSE 63–76; RESP 20; TEMP 35.8; O2SAT 83–93
--- NOTE | 2023-11-22 10:58 | CT_ITS ---
Final Report Patient: RALF HERNANDEZ Facility:?[facility] Patient ID:?[id number] Site Patient ID:?[id number]. Site :?[id number] Study:?CT Head WITHOUT-11/22/2023 11:20:47 AM Ordering Physician:SILVANA Final Report: INDICATION: Injury COMPARISON: There are no prior studies for comparison TECHNIQUE: CT examination of the head was performed as axial sections without intravenous contrast. Images were obtained from the vertex of the skull through the skull base. Please note that all CT scans at this facility use dose modulation, iterative reconstruction, and/or weight-based dosing when appropriate to reduce radiation dose to as low as reasonably achievable. FINDINGS: There is a large calcified extra-axial mass posteriorly on the left. This represents a calcified meningioma and measures 3.3 x 2.8 by 3.6 centimeters. This is left parafalcine and has mass effect upon the subjacent posterior medial parietal lobe and superior medial left occipital lobe. In spite of the mass effect, there is no edema or shift. There are involutional changes. There is moderate cortical atrophy and there is moderate white matter disease. There is no hydrocephalus. Findings of an aneurysm clip in the anterior right cerebral circulation. The visualized portions of the orbits are normal in appearance. The osseous structures are normal in appearance with no sign of abnormality in the skull base or calvarium. There is no subacute posttraumatic finding involving the brain or calvarium. No abnormal extra-axial fluid collection IMPRESSION: 1. Involutional changes. No acute posttraumatic findings involving the intracranial contents or calvarium. 2. 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 3. Moderate cortical atrophy and moderate white matter disease. 4. Relatively large calcified meningioma, posterior left parafalcine, measuring 3.3 x 2.8 x 3.6 centimeters as described Please note that all CT scans at this facility use dose modulation, iterative reconstruction, and/or weight-based dosing when appropriate to reduce radiation dose to as low as reasonably achievable. Dictated by Kayode Hayes MD @ 11/22/2023 11:39:09 AM (Electronic Signature)
--- NOTE | 2023-11-22 10:58 | XR_ITS ---
Final Report Patient: RALF HERNANDEZ Facility:?[facility] Patient ID:?[id number] Site Patient ID:?[id number]. Site :?[id number] Study:?XRay Extremity Right SHOULDER-11/22/2023 11:22:20 AM Ordering Physician:SILVANA Final Report: Indication: Injury Technique: A single view of the right shoulder was acquired portably Comparison: None Findings: Acromioclavicular joint is intact. There is an inferior glenohumeral dislocation. Without an orthogonal view, the direction is uncertain though statistically this is most likely an anterior inferior glenohumeral dislocation. No visible fracture on this single view study. Impression: There is a right glenohumeral dislocation as described. No visible fracture Dictated by Kayode Hayes MD @ 11/22/2023 11:40:44 AM (Electronic Signature)
[2023-11-22] MEDS: fentaNYL 100 MCG/2 ML inj 25 MCG IVP (11:07)
[2023-11-22 11:10] LABS: Basophils Absolute Auto 0.06 K/uL (0.00-0.30); Basophils Percent Auto 0.6 % (0.0-3.0); Eosinophils Absolute Auto 0.21 K/uL (0.00-0.50); Eosinophils Percent Auto 2.3 % (0.0-7.0); Hematocrit 45.9 % (33.0-51.0); Hemoglobin* 14.4 gm/dL (12.0-16.0); Immature Granulocytes Abs Auto 0.04 K/uL (0.00-0.30); Immature Granulocytes Pct Auto 0.4 %; Lymphocytes Percent Auto 12.6 % (20-44); Mean Corpuscular HGB Conc 31 gm/dL (32-36); Mean Corpuscular Hemoglobin 31 pg (26-34); Mean Corpuscular Volume 98 fL (80-100); Monocytes Percent Auto 9.1 % (0.0-11.0); Platelet Count* 304 K/uL (140-440); RDW Coefficient of Variation % 13.6 % (11.5-15.5); Red Blood Count 4.68 m/uL (4.00-5.20); White Blood Count* 9.29 K/uL (4.50-11.00)
[2023-11-22 11:11] LABS: Slide Review Reflex No
--- NOTE | 2023-11-22 11:19 | ED.FALL ---
HPI - Fall General Chief Complaint: Fall/Minor Trauma Stated Complaint: Fall Time Seen by Provider: 11/22/23 10:58 Source: patient, EMS, RN notes reviewed and old records reviewed Mode of arrival: EMS Limitations: no limitations History of Present Illness HPI Narrative: Patient is brought in on a trauma team activation by [facility]. She was getting out of her chair at home, right foot had fell asleep and she was not aware of this. When she went to stand up, lost her balance and fell onto her right side. She sustained a small cut above her right eyebrow which is not actively bleeding at the time. Patient is reportedly on Eliquis. She is denying any head pain, there was no loss of consciousness, she states she was lucid in remembers all of it. Her main complaint is her right shoulder. EMS did give her 2 doses of 25 mcg of fentanyl in route. She denies any numbness tingling in this extremity. She is denying any neck pain, no back pain, no difficulty breathing, no chest pain, no abdominal pain. Her left arm, neither of her legs are bothering her. Her right foot is no longer asleep. She is on 2 L nasal cannula oxygen from a recent hospitalization. In review of her chart, patient was hospitalized in September and discharged 10/02/2023 with acute on chronic respiratory failure, underlying RSV, also found to have a recurrent pulmonary embolism and started on Eliquis. MD complaint: fall Fall from: standing and chair (Was getting out of her chair) Fall witnessed: no Place fall occurred: home Loss of consciousness: No Related Data Home Medications Medication Instructions Recorded Confirmed furosemide 40 mg tablet 40 mg PO DAILY 02/28/23 09/29/23 levothyroxine 112 mcg tablet 112 mcg PO DAILY 02/28/23 09/29/23 liothyronine 5 mcg tablet 5 mcg PO BID 02/28/23 09/29/23 metoprolol succinate 25 mg 25 mg PO DAILY 02/28/23 09/29/23 tablet,extended release 24 hr oxycodone-acetaminophen 10 mg-325 1 tab PO Q4-6H PRN pain 02/28/23 09/29/23 mg tablet sertraline 100 mg tablet 200 mg PO DAILY 02/28/23 09/29/23 trazodone 50 mg tablet 100 mg PO QPM 02/28/23 09/29/23 umeclidinium 62.5 mcg-vilanterol 1 ea inhalation DAILY 02/28/23 02/28/23 25 mcg/actuation powdr for inhalation (Anoro Ellipta) bupropion HCl 150 mg 24 hr tablet, 150 mg PO QAM 09/29/23 09/29/23 extended release Previous Rx's Medication Instructions Recorded albuterol sulfate 90 mcg/actuation 2 puff inhalation Q6-8H PRN 07/04/22 aerosol inhaler bronchospasm #18 ea apixaban 5 mg tablet (Eliquis) 5 mg PO BID #70 tabs 10/02/23 prednisone 10 mg tablet 10 mg PO DIRECTED 17 days #17 10/02/23 tabs Allergies Allergy/AdvReac Type Severity Reaction Status Date / Time aspirin AdvReac Verified 02/28/23 15:15 Review of Systems Status of ROS: Reports: 6 or more systems reviewed and unremarkable except as noted in History and below [facility] Medical History RSV (respiratory syncytial virus pneumonia) ?J12.1 - Respiratory syncytial virus pneumonia (ICD-10) RSV bronchitis ?J20.5 - Acute bronchitis due to respiratory syncytial virus (ICD-10) Pulmonary embolism ?I26.99 - Other pulmonary embolism without acute cor pulmonale (ICD-10) Graves disease ?E05.00 - Thyrotoxicosis with diffuse goiter without thyrotoxic crisis or storm (ICD-10) GERD (gastroesophageal reflux disease) ?K21.9 - Gastro-esophageal reflux disease without esophagitis (ICD-10) Anxiety ?F41.9 - Anxiety disorder, unspecified (ICD-10) Depression ?F32.A - Depression, unspecified (ICD-10) Stage 3 chronic kidney disease ?N18.30 - Chronic kidney disease, stage 3 unspecified (ICD-10) Hyperlipidemia ?E78.5 - Hyperlipidemia, unspecified (ICD-10) Chronic back pain ?M54.9 - Dorsalgia, unspecified (ICD-10) ?G89.29 - Other chronic pain (ICD-10) Peptic ulcer disease ?K27.9 - Peptic ulcer, site unspecified, unspecified as acute or chronic, without hemorrhage or perforation (ICD-10) Meningioma ?D32.9 - Benign neoplasm of meninges, unspecified (ICD-10) Hypothyroidism ?E03.9 - Hypothyroidism, unspecified (ICD-10) Hypertension ?I10 - Essential (primary) hypertension (ICD-10) Acute and chronic respiratory failure with hypoxia ?J96.21 - Acute and chronic respiratory failure with hypoxia (ICD-10) Congestive heart failure ?I50.9 - Heart failure, unspecified (ICD-10) Bronchospasm ?J98.01 - Acute bronchospasm (ICD-10) Surgical History History of Ghislaine-en-Y gastric bypass ?Z98.84 - Bariatric surgery status (ICD-10) History of hip replacement ?Z96.649 - Presence of unspecified artificial hip joint (ICD-10) H/O abdominal hysterectomy ?Z90.710 - Acquired absence of both cervix and uterus (ICD-10) History of partial gastrectomy ?Z90.3 - Acquired absence of stomach [part of] (ICD-10) Status post coil embolization of cerebral aneurysm ?Z98.890 - Other specified postprocedural states (ICD-10) Total knee replacement status ?Z96.659 - Presence of unspecified artificial knee joint (ICD-10) Status post appendectomy ?Z90.49 - Acquired absence of other specified parts of digestive tract (ICD-10) Status post cholecystectomy ?Z90.49 - Acquired absence of other specified parts of digestive tract (ICD-10) Family History (Updated 09/29/23 @ 13:53 by Jacob Pandya MD) Brother Alcohol dependence Father Colon cancer Other Breast cancer Social History Narrative: She lives in [place]. Her son Cm lives with her. He is healthcare power of insurance defense attorney. She gets healthcare through [facility], Dr. Jannie Giordano. Quit smoking in 2008. Rarely drinks alcohol. Code status is DNR DNI What is your current living situation?: I presently have a place to live Problems where you live: no known problems Problems where you live details: NA In the past 12 months, utilities in danger of being shut off: no In past 12 months, lack of transportation kept you from medical appts, meetings, work, or getting things needed for daily living: no In the past 12 mos, have been you worried that your food would run out before you had money to buy more?: never true In the past 12 mos, the food you bought just didn't last and you didn't have money to buy more?: never true Highest level of school completed/degree received: high school graduate Smoking Status: Former smoker Do you use any of these nicotine containing products: None Second hand tobacco smoke exposure: No How often do you have a drink containing alcohol: monthly or less Alcohol type: wine How often do you have six or more drinks on one occasion: Never AUDIT-C Alcohol total score: 1 Non-prescribed substance use: denies use Caffeine: No How often does anyone, including family, friends and others, physically hurt you: never How often does anyone, including family, friends and others, insult or talk down to you: never How often does anyone, including family, friends and others, threaten you with harm: never How often does anyone, including family, friends and others, scream or curse at you: never service: No Exam Const: Vital Signs, click to edit/add: Vital Signs - 24 hr 11/22/23 10:58 11/22/23 10:58 11/22/23 11:12 Temperature 96.5 F L Pulse Rate Pulse Rate [Pulse Oximeter] 76 Respiratory Rate 20 Blood Pressure Blood Pressure [Le ft Upper Arm] 117/78 Pulse Oximetry 89 89 83 L Oxygen Delivery Me thod Nasal Cannula Room Air Oxygen Flow Rate 3 11/22/23 11:17 11/22/23 11:35 11/22/23 11:36 Temperature Pulse Rate 69 Pulse Rate [Pulse Oximeter] Respiratory Rate Blood Pressure 190/143 H 190/143 H Blood Pressure [Le ft Upper Arm] Pulse Oximetry 91 88 88 Oxygen Delivery Me thod Nasal Cannula Oxygen Flow Rate 3 3 11/22/23 11:36 11/22/23 11:42 11/22/23 11:45 Temperature Pulse Rate 68 68 74 Pulse Rate [Pulse Oximeter] Respiratory Rate Blood Pressure 203/116 H Blood Pressure [Le ft Upper Arm] Pulse Oximetry 88 92 89 Oxygen Delivery Me thod Oxygen Flow Rate 11/22/23 11:52 11/22/23 12:00 11/22/23 12:02 Temperature Pulse Rate 68 69 65 Pulse Rate [Pulse Oximeter] Respiratory Rate Blood Pressure 208/106 H 191/108 H Blood Pressure [Le ft Upper Arm] Pulse Oximetry 92 87 L 93 Oxygen Delivery Me thod Oxygen Flow Rate 11/22/23 12:12 11/22/23 12:15 11/22/23 12:22 Temperature Pulse Rate 65 66 66 Pulse Rate [Pulse Oximeter] Respiratory Rate Blood Pressure 178/102 H 179/94 H Blood Pressure [Le ft Upper Arm] Pulse Oximetry 91 91 90 Oxygen Delivery Me thod Oxygen Flow Rate 11/22/23 12:30 11/22/23 12:32 11/22/23 12:42 Temperature Pulse Rate 72 67 68 Pulse Rate [Pulse Oximeter] Respiratory Rate Blood Pressure 162/84 H 168/91 H Blood Pressure [Le ft Upper Arm] Pulse Oximetry 87 L 89 91 Oxygen Delivery Me thod Oxygen Flow Rate 11/22/23 12:45 Temperature Pulse Rate 68 Pulse Rate [Pulse Oximeter] Respiratory Rate Blood Pressure Blood Pressure [Le ft Upper Arm] Pulse Oximetry 90 Oxygen Delivery Me thod Oxygen Flow Rate On initial survey, alert patient in pain, dried blood in small laceration above her right outer eyebrow, no active bleeding. Her GCS is 15/15, airway/breathing/circulation without any emergent intervention needed. Was able to proceed directly to secondary survey. Patient is alert, interactive, in pain. Pupils equal round reactive, sclerae clear, extraocular muscles intact. Symmetrical facial function, speech normal. She has a very small hematoma underlying about about a 4-5 mm linear laceration above the upper outer right eyebrow. There is some dried blood. Wound edges are already approximated. No active bleeding noted. No drainage from nares are canals. No midline tenderness over neck or back. Lungs are clear, good air entry, no wheezing or crackles. CV regular rate and rhythm, do not hear murmur. Abdomen is soft, nontender. She does have normal sensation in her right fingers, is holding her right arm along side her body, flex at elbow. I do worry about dislocation of this right shoulder, seems to have different appearance than the left and is tender when I palpate over the shoulder area. Clavicle on the right side is nontender. She is moving her lower extremities, states there is no tenderness, she has no complaints with her left arm, no visible traumatic change. Documenting provider has reviewed patient's vital signs: yes Course Course ED Course: Have obtained a portable shoulder x-ray, do see humeral head fracture and dislocation. Patient will need to have a head CT done to ensure no acute intracranial bleeding prior to any sedation for shoulder reduction. Will have Orthopedics paged once the films are in the system. This was done portably for her shoulder. Will manage her pain with some p.r.n. fentanyl. Will get baseline labs. Will monitor patient here closely, update any other imaging or x-rays if she has any other complaints. Reevaluation(s) Time of Reevaluation #1: 11:46 Reevaluation #1: Have reviewed with patient her shoulders dislocated, need radiologist over-read to see if there is fracture not. I have contacted Orthopedics to look at the images as well. Calli did eventually come over here. Will plan on reducing the shoulder. Anesthesia has been called in asked if they would place a block for pain control. Her pain has yet to be controlled. We have tried multiple doses of fentanyl, tried morphine, additional dose of ketamine an Ativan will be given. Time of Reevaluation #2: 12:11 Reevaluation #2: With assistance of Calli WONG from Orthopedics, shoulder was easily reduced, I did guide the humeral head, she did the maneuvering and traction. Shoulder easily relocated. Anesthesia had kindly placed a shoulder block in this patient. This gave excellent anesthesia. Post reduction patient had good peripheral pulses, was able to mobilize her hand. Will get post reduction imaging films and place arm in a sling. Nursing staff has already talked to her son, he will be able to help her but she does ambulate with a walker. This may pose a difficulty. Time of Reevaluation #3: 13:03 Reevaluation #3: Have spoken with her son on the phone. He states that he is with her at home, can be with her nearly all the time. He understands that she is likely not going to be able to use her walker for some time. He believes he will be able to assist her around the house. Thus, we will trial her at home. He understands if they are having issues with this, they can return. She will need orthopedic follow-up, will make sure they have the phone number to contact the orthopedic office for follow-up. Vital Signs Vital signs: Initial Vital Signs Pulse Oximetry 89 11/22/23 10:58 Oxygen Delivery Method Nasal Cannula 11/22/23 10:58 Oxygen Flow Rate 3 11/22/23 10:58 Vital Signs Pulse Oximetry 89 11/22/23 10:58 Oxygen Delivery Method Nasal Cannula 11/22/23 10:58 Oxygen Flow Rate 3 11/22/23 10:58 Temperature 96.5 F L 11/22/23 11:12 Pulse Rate 68 11/22/23 12:45 Respiratory Rate 20 11/22/23 11:12 Blood Pressure 168/91 H 11/22/23 12:42 Pulse Oximetry 90 11/22/23 12:45 Oxygen Delivery Method Nasal Cannula 11/22/23 11:17 Oxygen Flow Rate 3 11/22/23 11:36 Medications Administered Medications: Generic Name Dose Route Start Last Admin Trade Name Freq PRN Reason Stop Dose Admin Fentanyl 25 mcg 11/22/23 11:04 11/22/23 11:07 Fentanyl 100 Mcg/2 Ml Inj IVP 25 mcg Q2H PRN Administration Discontinued Medications Generic Name Dose Route Start Last Admin Trade Name Freq PRN Reason Stop Dose Admin Ketamine HCl 10 mg 11/22/23 11:41 11/22/23 11:53 Ketamine Hcl 100 Mg/Ml Inj IVP 11/22/23 11:42 10 mg ONCE ONE Administration Lorazepam 0.25 mg 11/22/23 11:42 11/22/23 11:52 Lorazepam 2 Mg/Ml Inj IVP 11/22/23 11:43 0.25 mg ONCE ONE Administration Morphine Sulfate 2 mg 11/22/23 11:23 11/22/23 11:30 Morphine 2 Mg/Ml Inj IVP 11/22/23 11:24 2 mg ONCE ONE Administration MDM - Fall Lab Data Attestation: I reviewed the patient's lab results. Labs: Lab Results 11/22/23 Range/Units 10:55 WBC 9.29 (4.50-11.00) K/uL RBC 4.68 (4.00-5.20) m/uL Hgb 14.4 (12.0-16.0) gm/dL Hct 45.9 (33.0-51.0) % MCV 98 (80-100) fL MCH 31 (26-34) pg MCHC 31 L (32-36) gm/dL RDW Coeff of Yvrose 13.6 (11.5-15.5) % Plt Count 304 (140-440) K/uL Neut % (Auto) 75.0 H (42.0-72.0) % Lymph % (Auto) 12.6 L (20-44) % Towns % (Auto) 9.1 (0.0-11.0) % Eos % (Auto) 2.3 (0.0-7.0) % Baso % (Auto) 0.6 (0.0-3.0) % Neut # (Auto) 7.00 (1.7-7.0) K/uL Lymph # (Auto) 1.20 (0.90-2.90) K/uL Towns # (Auto) 0.80 (0.00-0.90) K/UL Eos # (Auto) 0.21 (0.00-0.50) K/uL Baso # (Auto) 0.06 (0.00-0.30) K/uL Abs Immat Gran (auto) 0.04 (0.00-0.30) K/uL Imm/Tot Granulo (auto) 0.4 % Sodium 138 (135-149) mmol/L Potassium 4.0 (3.6-5.1) mmol/L Chloride 104 (96-114) mmol/L Carbon Dioxide 23 (20-32) mmol/L Anion Gap 11 (7-15) mEq/L BUN 21 (7-30) mg/dL Creatinine 1.0 (0.5-1.5) mg/dL Estimated GFR 59 ml/min Glucose 108 (60-115) mg/dL Calcium 9.5 (8.4-10.6) mg/dL Imaging Data CT scan - head: Attestation: I have reviewed the pertinent imaging results. Radiologist's impression: Patient: RALF HERNANDEZ Facility:?[facility] Patient ID:?[id number] Site Patient ID:?[id number]. Site :?[id number] Study:?CT Head WITHOUT-11/22/2023 11:20:47 AM Ordering Physician:SILVANA Final Report: INDICATION: Injury COMPARISON: There are no prior studies for comparison TECHNIQUE: CT examination of the head was performed as axial sections without intravenous contrast. Images were obtained from the vertex of the skull through the skull base. Please note that all CT scans at this facility use dose modulation, iterative reconstruction, and/or weight-based dosing when appropriate to reduce radiation dose to as low as reasonably achievable. FINDINGS: There is a large calcified extra-axial mass posteriorly on the left. This represents a calcified meningioma and measures 3.3 x 2.8 by 3.6 centimeters. This is left parafalcine and has mass effect upon the subjacent posterior medial parietal lobe and superior medial left occipital lobe. In spite of the mass effect, there is no edema or shift. There are involutional changes. There is moderate cortical atrophy and there is moderate white matter disease. There is no hydrocephalus. Findings of an aneurysm clip in the anterior right cerebral circulation. The visualized portions of the orbits are normal in appearance. The osseous structures are normal in appearance with no sign of abnormality in the skull base or calvarium. There is no subacute posttraumatic finding involving the brain or calvarium. No abnormal extra-axial fluid collection IMPRESSION: 1. Involutional changes. No acute posttraumatic findings involving the intracranial contents or calvarium. 2. 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 3. Moderate cortical atrophy and moderate white matter disease. 4. Relatively large calcified meningioma, posterior left parafalcine, measuring 3.3 x 2.8 x 3.6 centimeters as described Please note that all CT scans at this facility use dose modulation, iterative reconstruction, and/or weight-based dosing when appropriate to reduce radiation dose to as low as reasonably achievable. Dictated by Kayode Hayes MD @ 11/22/2023 11:39:09 AM (Electronic Signature) XR right shouder: Attestation: I have reviewed the pertinent imaging results. My impression: Initial shoulder images reviewed, did see the dislocated shoulder. On post reduction images, shoulders been reduced. I do wonder if there is a small focal glenohumeral lesion/fracture inferiorly off the joint. Radiologist's impression: Patient: RALF HERNANDEZ Facility:?[facility] Patient ID:?[id number] Site Patient ID:?[id number]. Site :?[id number] Study:?XRay Extremity Right SHOULDER-11/22/2023 11:22:20 AM Ordering Physician:SILVANA Final Report: Indication: Injury Technique: A single view of the right shoulder was acquired portably Comparison: None Findings: Acromioclavicular joint is intact. There is an inferior glenohumeral dislocation. Without an orthogonal view, the direction is uncertain though statistically this is most likely an anterior inferior glenohumeral dislocation. No visible fracture on this single view study. Impression: There is a right glenohumeral dislocation as described. No visible fracture Dictated by Kayode Hayes MD @ 11/22/2023 11:40:44 AM (Electronic Signature) Patient: RALF HERNANDEZ Facility:?[facility] Patient ID:?[id number] Site Patient ID:?[id number]. Site :?[id number] Study:?XRay Shoulder Right POST REDUCTION-11/22/2023 12:39:07 PM Ordering Physician:SILVANA Final Report: Indication: Postreduction Technique: Two views of the right shoulder were acquired Comparison: A study from earlier the same day Findings: The glenohumeral dislocation has been reduced. Bone mineral density is decreased. 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 No visible fracture. Impression: Reduced glenohumeral dislocation. No fracture identified. Dictated by Kayode Hayes MD @ 11/22/2023 1:20:38 PM (Electronic Signature) Discharge Plan Discharge Clinical Impression: Anterior dislocation of right shoulder, Facial laceration, Fall Patient Disposition: Home w/ Parent or Adult Condition: Stable Instructions: Shoulder Dislocation (ED), Fall Prevention for Older Adults (ED) Additional Instructions: Need to use sling for right arm for immobilization until further advised by Orthopedics. Tylenol and ice to the shoulder can be used for any residual pain. Need to call [phone] to get an orthopedic follow-up appointment scheduled. They will give you the appropriate time line for when they want to see you after this type of injury. You will not be able to use your right arm to use your walker. Please do not try to get up without assistance at home, will need to rely on your son to help you ambulate places. If you find that the situation is not working at home, you may need to be placed in temporary rehabilitation facility. If needed, can use plain Tylenol or use your pain medicines. Just be careful to not exceed 3 g of Tylenol in 24 hour period. Prescriptions: No Action furosemide 40 mg tablet 40 mg PO DAILY trazodone 50 mg tablet 100 mg PO QPM sertraline 100 mg tablet 200 mg PO DAILY liothyronine 5 mcg tablet 5 mcg PO BID oxycodone-acetaminophen 10-325 mg tablet 1 tab PO Q4-6H PRN (Reason: pain) metoprolol succinate 25 mg tablet extended release 24 hr 25 mg PO DAILY levothyroxine 112 mcg tablet 112 mcg PO DAILY Anoro Ellipta 62.5-25 mcg/actuation blister with device 1 ea INHALATION DAILY bupropion HCl 150 mg tablet extended release 24 hr 150 mg PO QAM Eliquis 5 mg Tablet 5 mg PO BID Qty: 70 0RF Rx Instructions: 2 tabs (10mg) BID for 3 more days. On October 06, start 1tab (5mg) BID prednisone 10 mg tablet 10 mg PO DIRECTED 17 Days Qty: 17 0RF Rx Instructions: 4 tabs for 4d, then 3 tabs po x3d, then 2tabs po x3d, then 1 tab po x7d albuterol sulfate 90 mcg/actuation HFA aerosol inhaler 2 puff inhalation Q6-8H PRN (Reason: bronchospasm) Qty: 18 0RF Follow Up/Referrals: Provider,Not a Local [Primary Care Provider] - Stand Alone Forms: [facility] Info Instructions
[2023-11-22 11:25] LABS: Chloride* 104 mmol/L (96-114); Sodium* 138 mmol/L (135-149)
[2023-11-22 11:28] LABS: Anion Gap 11 mEq/L (7-15); Blood Urea Nitrogen* 21 mg/dL (7-30); Carbon Dioxide* 23 mmol/L (20-32); Estimated Glomerular Filt Rate 59 ml/min; Glucose* 108 mg/dL (60-115)
[2023-11-22 11:29] LABS: Calcium* 9.5 mg/dL (8.4-10.6)
[2023-11-22] MEDS: MORPHINE 2 MG/ML inj IVP (11:30)
[2023-11-22] MEDS: LORazepam 2 MG/ML inj 0.25 MG IVP (11:52)
[2023-11-22] MEDS: KETAMINE HCL 100 MG/ML inj 10 MG IVP (11:53)
--- OUTSIDE RECORDS SUMMARY | 2023-11-22 11:53 | XMS_ITS | Clinical Summary ---
Author Name Unknown Organization [facility] Address [place], [place] [address] Care Team Providers Care Laundry Agent Name Role Phone Asher Dillon MD Unavailable Jannie Giordano DO Primary Care Provid er Allergies Active Allergy Reactions Criticality Noted Date Comments Aspirin Other - Describe In Comment Field Medium 02/13/2015 Stomach ulcers with high doses Hydrochlorothiazide Dizziness Low 05/09/2018 Atorvastatin Dizziness 05/09/2018 Hydrocodone-Acetaminophen Other - Descri be In Comment Field Low 02/16/2015 Abdominal pain Medications Medication Sig Dispensed Refills Start Date End Date Status ANORO ELLIPTA 62.5-25 mcg/actuation inhaler Inhale 1 Puff by mouth once daily. 0 04/12/2018 Active loratadine (CLARITIN) 10 mg tablet Take 10 mg by mouth once daily if needed for Allergy Symptoms. 0 Active liothyronine (CYTOMEL) 5 mcg tablet Take 10 mcg by mouth before breakfast. 0 Active KLOR-CON M20 20 mEq Extended-Release tablet Take 1 tablet by mouth. Takes as needed when using Lasix 4 09/22/2018 Active nitroglycerin (NITROSTAT) 0.[address] 0.4 mg under the tongue every 5 minutes if needed for Chest Pain. May take second pill 5 minutes later. If symptoms not relieved, call 911. 1 02/01/2019 Active albuterol HFA 90 mcg/actuation inhaler Inhale 2 Puffs by mouth every 4 hours if needed (For Wheezing or shortness of breath). 0 Active buPROPion (WELLBUTRIN XL) 150 mg Extended-Release tablet Take 150 mg by mouth once daily. 0 02/25/2020 Active levothyroxine (SYNTHROID) 137 mcg tablet Take 137 mcg by mouth before breakfast. 0 01/14/2020 Active metoprolol succinate (TOPROL XL) 25 mg Sustained-Release tablet Take 25 mg by mouth once daily. 0 02/13/2020 Active denosumab (PROLIA) 60 mg/mL injection Inject 60 mg subcutaneous EVERY 6 MONTHS. 0 Active traZODone (DESYREL) 50 mg tablet Take 2 tablets by mouth at bedtime. 0 02/12/2020 Active cholecalciferol, Vitamin D3, (VITAMIN D-3) 2,000 unit tablet Take 2,000 Units by mouth once daily. 0 Active CALCIUM ORAL Take 1 tablet by mouth once daily. 0 Active loperamide (IMODIUM A-D) 2 mg tablet Take 2-4 mg by mouth each time if needed for Diarrhea. Take 4mg by mouth with 1st loose stool, then 2mg with each subsequent loose stool. Max 16 mg in 24 hrs 0 Active multivitamin/iron/ folic acid (CENTRUM ORAL) Take 1 tablet by mouth once daily. 0 Active oxyCODONE-acetamin ophen, 5-325 mg, (PERCOCET) 5-325 mg per tabletIndications: Status post right hip replacement Take 1-2 tablets by mouth every 4 hours if needed for Pain Max acetaminophen dose: 4000mg in 24 hrs. 30 tablet 0 03/25/2020 Active amitriptyline (ELAVIL) 25 mg tablet Take 25 mg by mouth at bedtime. 0 Active melatonin 5 mg chew Take 5 mg by mouth at bedtime. 0 Active prednisoLONE acetate 1% ophthalmic (ECONOPRED PLUS, PRED FORTE, OMNIPRED) suspension Place 1 Drop into left eye 4 times daily. Start after surgery 0 Active fluconazole (DIFLUCAN) 100 mg tablet Take 100 mg by mouth once daily. 0 10/27/2019 Active neomycin-polymyxin -dexamethasone (MAXITROL) 3.5mg/mL-10,000 unit/mL-0.1 % ophthalmic suspension INSTILL 1 DROP INTO LEFT EYE FOUR TIMES A DAY DIRECTED START AFTER SURGERY. USE UNTIL GONE. 0 05/05/2020 Active furosemide (LASIX) 40 mg tablet Take 40 mg by mouth once daily. 0 08/15/2020 Active sertraline (ZOLOFT) 100 mg tablet Take 1 tablet by mouth once daily. 0 10/16/2020 Active moxifloxacin (VIGAMOX) 0.5 % ophthalmic solution PLEASE SEE ATTACHED FOR DETAILED DIRECTIONS 0 10/07/2020 Active brimonidine (ALPHAGAN) 0.2 % ophthalmic solution Place 1 Drop into left eye 3 times daily. 0 10/12/2020 Active Active Problems Problem Noted Date Diagnosed Date Status post right hip replacement revision 03/12 Status post left knee replacement 10/10/2018 Primary osteoarthritis of left knee 10/08/2018 Primary osteoarthritis of right knee 05/08/2018 Controlled substance agreement signed 02/16/2015 Overview: Chronic low back pain with DDD Of L5-S1 and compression fracture at L3.Provider: Dominga Patel MD Pharmacy: [facility]. Date Signed: 02/16/2015 Expiration Date: 02/17/2016 Diagnosis: Chronic low back pain with compression Fx at L3. Medication(s): Percocet Frequency of Visits: every other months. Pap smear, as part of routine gynecological exam ination 08/20/2012 Overview: normal Fever and other physiologic disturbances of temperature regulation 06/08/2008 Leucocytosis 06/08/2008 Hyponatremia 06/08/2008 Headache(784.0) 06/07/2008 Nausea 06/07/2008 Aneurysm Overview: right MCA, right ACOMboth nonruptured. Hypothyroid Meningioma Overview: left occipital PUD (peptic ulcer disease) Overview: remote history CHF (congestive heart failure) COPD (chronic obstructive pulmonary disease) GERD (gastroesophageal reflux disease) HTN (hypertension) Hypothyroidism Depression Hyperlipidemia Sleep apnea Pulmonary emboli Graves' disease Chronic kidney disease, stage 3 Anxiety Immunizations Name Administration Dates Next Due Influenza Virus, Unspecified 06/02/2014 Influenza, High-dose Inactivated 06/13/2017,10/2015,07/17/2015 Influenza, IIV3 (Age >=3 years) 06/02/2014,07/01 Pneumococcal Poly,23-Valent (Pneumovax) 09/14/20 14 Pneumococcal conj 13-Valent (Prevnar 13) 016 Tdap 01/20/2016 Zoster (Zostavax-ZVL, live) 02/19/2013 Family History Medical History Relation Name Comments Alcoholism Brother 1 Cancer Brother 2 oral cancer wit h smoking Cancer-colon Father Other Father aortic disectin g aneurysm. smoker Cancer-breast Maternal Grandmother 1 80s Good Health Mother Other Paternal Grandmother aortic abdominal anurysm Cancer-breast Sister 1 45 Relation Name Status Comments Brother 1 Brother 2 Father (Age 69) Anurysm Maternal Grandfather Maternal Grandmother 1 80s Alive Maternal Grandmother 2 Mother Alive Paternal Grandfather Paternal Grandmother Sister 1 45 Alive Sister 2 Alive Social History Tobacco Use Types Packs/Day Years Used Date Smoking Tobacco: Former Cigarettes Q uit: 2009 Smokeless Tobacco: Never Alcohol Use Standard Drinks/Week Comments No 0 (1 standard drink = 0.6 oz pur e alcohol) Occasional rarely Sex and Gender Information Value Date Recorded Sex Assigned at Not on file Gender Identity Not on file Sexual Orientation Not on file Obstetrics History Last Filed Vital Signs Vital Sign Reading Time Taken Comments Blood Pressure 113/71 10/22/2020 10:00 AM SENIOR BEHAVIORAL SCIENTIST Pulse 61 10/22/2020 9:45 AM SENIOR BEHAVIORAL SCIENTIST Temperature 36.3 ??C (97.3 ??F) 10/22/2020 6:00 AM CS T Respiratory Rate 16 10/22/2020 9:45 AM SENIOR BEHAVIORAL SCIENTIST Oxygen Saturation 93% 10/22/2020 9:45 AM SENIOR BEHAVIORAL SCIENTIST Inhaled Oxygen Concentration - - Weight 76.2 kg (168 lb) 10/20/2020 3:00 PM SENIOR BEHAVIORAL SCIENTIST Height 167.6 cm (5' 6) 10/20/2020 3:00 PM SENIOR BEHAVIORAL SCIENTIST Body Mass Index 27.12 10/20/2020 3:00 PM SENIOR BEHAVIORAL SCIENTIST Plan of Treatment Health Maintenance Due Date Last Done Comments Depression screening for age 12+ 1960 BMI (ht and wt on same day) for age 18+ 1966 Hepatitis C screening for ag e 18-79 1966 Lipids for age 45-75 1993 Zoster (shingles) series for age 50+ (2 of 3) 04/16/2013 02/19/2013 Medicare Wellness for age 65+ 2013 COVID-19 vaccine series ( season) 2023 07/07/2022 Influenza for age 65+ 06/02/2023 06/13/2017 , 07/02/2016, 07/17/2015, Additional history exists Colonoscopy through age 75 09/13/202409/13 (Completed outside of [facility]) Tetanus booster 01/19/2026 01/20/2016 DEXA/DXA scan for age 65+ Completed 2014, 08/29/2012 (Completed outside of [facility]) Pneumococcal series for age 65+ Completed , 09/14/2014 Tdap Completed 01/20/2016 Medical Devices Implanted Type Area Ball Point Splitter Device Identifier Shelf Expiration Date Model / Serial / Lot Simplex P Bone Cement Implanted:Qty: 1 on 05/14/2018 by Oscar Mina MD at [facility] Right: Knee [employer] 05/01/2020 / / [id number] Simplex P Bone Cement Implanted:Qty: 1 on 05/14/2018 by Oscar Mina MD at [facility] Right: Knee [employer] 11/30/2019 / / [id number] Truliant Femoral Component Implanted:Qty: 1 on 05/14/2018 by Oscar Mina MD at [facility] Right: Knee [employer] 03/27/2028 / / [id number] Truliant Fit Tibial Tray Implanted:Qty: 1 on 05/14/2018 by Oscar Mina MD at [facility] Right: Knee [employer] 12/06/2027 / / [id number] Truliant Psc Tibial Insert Implanted:Qty: 1 on 05/14/2018 by Oscar Mina MD at [facility] Right: Knee [employer] 01/24/2026 / / [id number] Optetrak 3 Peg Patella Implanted:Qty: 1 on 05/14/2018 by Oscar Mina MD at [facility] Right: Knee [employer] 03/29/2023 / / [id number] Optetrak Logic Stem Ext Implanted:Qty: 1 on 05/14/2018 by Oscar Mina MD at [facility] Right: Knee [employer] 07/19/2021 / / [id number] Optetrak Tibial Stem Ext Screw Implanted:Qty: 1 on 05/14/2018 by Oscar Mina MD at [facility] Right: Knee [employer] 02/18/2023 / / [id number] Bone Cement Implanted:Qty: 1 on 10/08/2018 by Oscar Mina MD at [facility] Left: Knee [employer] 05/01/2020 / / [id number] Femoral Component Implanted:Qty: 1 on 10/08/2018 by Oscar Mina MD at [facility] Left: Knee [employer] 03/13/2028 / / [id number] Tibial Tray Implanted:Qty: 1 on 10/08/2018 by Oscar Mina MD at [facility] Left: Knee [employer] 03/27/2028 / / [id number] Stem Extension Implanted:Qty: 1 on 10/08/2018 by Oscar Mina MD at [facility] Left: Knee [employer] 11/12/2022 / / [id number] Stem Extension Screw Implanted:Qty: 1 on 10/08/2018 by Oscar Mina MD at [facility] Left: Knee [employer] 12/12/2022 / / [id number] Tibial Insert Implanted:Qty: 1 on 10/08/2018 by Oscar Mina MD at [facility] Left: Knee [employer] 10/04/2025 / / [id number] Patella Implanted:Qty: 1 on 10/08/2018 by Oscar Mina MD at [facility] Left: Knee [employer] 06/10/2023 / / [id number] Bone Cement Implanted:Qty: 1 on 10/08/2018 by Oscar Mina MD at [facility] Left: Knee [employer] 11/30/2019 / / [id number] Constrained Liner Implanted:Qty: 1 on 03/24/2020 by Oscar Mina MD at [facility] Right: Hip [employer] 11/15/2023 / / [id number] Constrained Modular Head Implanted:Qty: 1 on 03/24/2020 by Oscar Mina MD at [facility] Right: Hip [employer] 03/21/2029 / / [id number] Advance Directives Latest Code Status on File Code Status Date Activated Date Inactivated Comments Full Code 05/14/2020 1:28 PM 05/14/2020 7:20 PM Code Status History Code Status Date Activated Date Inactivated Comments Full Code 03/24/2020 3:16 PM 03/27/2020 7:04 PM Full Code 03/24/2020 11:17 AM 03/24/2020 3:15 PM Full Code 03/01/2019 3:13 PM 03/01/2019 7:28 PM Question Answer Comments Code Status Discussion: Discussed Full Code 10/08/2018 10:12 AM 10/12/2018 2:19 AM Care Teams Laundry Agent Relationship Specialty Start Date End Date Jannie Giordano DO [address] [place] [address] PCP - General Family Practice 03/17/20 Asher Dillon MD [address] [place] [address] 02/09/15
--- NOTE | 2023-11-22 12:06 | P.NB_ITS ---
Nerve Block Nerve Block Time Seen by Provider: 12:06 Date Seen: 11/22/23 Type of block requested by surgeon for post-operative analgesia: supraclavicular Side: right Time out performed: Yes Verification of patient name: Yes Verification of date of : Yes Site marking: site marked Name of person performing procedure: mantyl Continuous monitoring Was continuous monitoring of O2 sat, B/P, quality assurance monitor chassis, recorded every 15 minutes?: Yes Procedure Checklist: sterile prep and needles Ultrasound guided. Images saved: Yes Medications given in 5ml increments after negative aspiration: Marcaine %: 0.5 mL: 10 and Lidocaine %: 2 mL: 10 Patient tolerated procedure well: Yes Block Charges Block Charge (with Pro Fee): Brachial Plexus Use of Ultrasound Machine for Block: Yes- US Guidance/pain block
--- NOTE | 2023-11-22 12:10 | XR_ITS ---
Final Report Patient: RALF HERNANDEZ Facility:?[facility] Patient ID:?[id number] Site Patient ID:?[id number]. Site :?[id number] Study:?XRay Shoulder Right POST REDUCTION-11/22/2023 12:39:07 PM Ordering Physician:SILVANA Final Report: Indication: Postreduction Technique: Two views of the right shoulder were acquired Comparison: A study from earlier the same day Findings: The glenohumeral dislocation has been reduced. Bone mineral density is decreased. 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 No visible fracture. Impression: Reduced glenohumeral dislocation. No fracture identified. Dictated by Kayode Hayes MD @ 11/22/2023 1:20:38 PM (Electronic Signature)
--- NOTE | 2023-11-29 08:42 | P.ORPRC_ITS ---
Procedure Note Provider Contact Time: 12:11 Date of procedure: 11/22/23 Pre-op diagnosis: Right shoulder glenohumeral dislocation Post-op diagnosis: other (Right shoulder s/p glenohumeral closed reduction) Procedure: Closed reduction of a right shoulder dislocation: Right shoulder dislocation was successfully reduced by providing gentle traction while slowly internally rotating her right upper extremity with her elbow flexed at [address] Manriquez provided gentle pressure to the humeral head to encourage reduction into the glenoid. Shoulder was easily reduced. Patient felt immediate comfort and pain relief. Post reduction, Nasreen had radial pulse 2+, pink, warm digits with brisk capillary refill. Deltoid sensation confirmed. Also confirmed sensation along the radial, median and ulnar nerve distributions. Patient was placed in a sling. Post reduction films confirm this successful reduction and ruled out a humeral head fracture. Subtle inferior glenoid chip fracture, likely caused by the initial dislocation itself. Nasreen will follow- up with Orthopedics in 7-10 days. Estimated blood loss (mL): 0 Pathology: none sent Condition: stable Disposition: other (Patient was discharged from the ED to home with her son. )
== END 2023-11-22 13:51 | disposition home or self-care (01) ==
PROVIDERS: Emergency Provider Family Medicine
DX: S43.014A Anterior dislocation of right humerus, initial encounter (principal); S01.111A Laceration without foreign body of right eyelid and periocular area, initial encounter; W18.00XA Striking against unspecified object with subsequent fall, initial encounter
CPT/HCPCS: 36415; 70450; 73020; 73030; 76942; 80048; 85025; 94761; 96374; 96375; 99285; 99291; G0390; J2060; J2270; J2795; J3010; J3490

== ENCOUNTER 2024-01-02 14:15 | Outpatient (RCR) | payer MEDICARE, BC, SELFPAY ==
--- NOTE | 2023-12-05 14:05 | PT.OPEX ---
PT [facility] Eval PT [facility] Outpatient Eval Start: 12/05/23 11:26 Freq: Status: Active Protocol: Document 12/05/23 11:27 CRP (Rec: 12/05/23 14:02 CRP [id number]) E-signed By Fredy Lal PT Physical Therapy Outpatient Evaluation Insurance Information Recert Due Date 03/04/24 Insurance Name Medicare B Medical Diagnosis Anterior dislocation of R shoulder Referring MD Dr Zepeda Subjective Subjective Pt fell 11-22-23 and dislocated R shoulder without fracture. Pt reports she is just in the process of working at not using the sling. Pain is across the right deltoid and sore to the touch in the back of the shoulder. Pt reports that she is trying to use the shoulder but will have spasms at time. Sleep is a challenge . Pt reports that now since she cannot use her R arm normally she is putting more stress on her lower back. Her back just recently went out and she is getting treatment from the chiropractor. Was in the hospital recently until Oct 02 with RSV and now using daytime O2. Used to use O2 at night. Prior to the injury she was able to do most of what she needs to on her own. Is back to showering and putting her own clothes on without help. Does not need to take care of food and is getting help with cleaning and laundry. Pain Comments 5-6/10 0/10 at rest Current Work Status Retired Objective Range of Motion Seated PROM: flex 125, abd, 87 , ER 15, IR hand to stomach AAROM shoulder ROM, Flex 115, abd - too painful AROM shoulder ROM flex 10 deg Elbow ROM: flex/Ext WNL Strength MMT: Elbow Flex/Ext 4-/5 Shoulder: IR/ER painful. Flex 3-/5. Abd - painful Assessment Assessment/Impression Pt presents to the clinic s/p R shoulder dislocation with as her date of injury. Pt shows ongoing issues with pain and loss of motion. Her strength is still significantly impacted and secondary to pain it is difficult to assess her full status in regards to rotator cuff involvement. Skilled PT is necessary to incorporate ther ex, nm julianna, ther act and pt education to safely decrease pain and improve function. Primary Functional Limitations Any activity with her R UE Plan of Care Rehabilitation Potential Good Physical Therapy Goals 1. Pt will be independent with HEP in 4 weeks. 2. Pt will don/doff clothing without c/o in 8-10 weeks. 3. Pt complete steam blocker without c.o in 12 weeks . Coordination/Communication With Referral Source Treatment Plan/Direct Interventions Neuromuscular Re-ed,Self-Care/ Home Management,Therapeutic Activities,Therapeutic Exercises Frequency/Duration Every other week to PRN x 12 weeks Patient Will Be Discharged From Therapy Completion of LTG(s),Skills Plateau,Independent w/HEP, Independently Progressing Evaluation Billing Untimed Code Treatment Minutes 30 Complexity Moderate Certification Information Initial Certification Date 12/05/23 Ending Certification Date 03/04/24 Provider Signature Shows Agreement With POC & Medical Necessity Physician Signature & Date Requested Please Sign/Date Here Physician Comment/Change : Physician NPI Number #
== END 2024-05-01 23:59 | disposition home or self-care (01) ==
PROVIDERS: Visit Provider Orthopaedic Surgery
DX: S43.014A Anterior dislocation of right humerus, initial encounter (principal); Z51.89 Encounter for other specified aftercare
CPT/HCPCS: 97110; 97162

== ENCOUNTER 2024-02-01 08:56 | Outpatient (CLI) | payer MEDICARE, BC, SELFPAY ==
--- OUTSIDE RECORDS SUMMARY | 2024-02-01 08:58 | XMS_ITS | Clinical Summary ---
Author Name Unknown Organization [facility] Address [place], [place] [address] Care Team Providers Care Gis Technician Name Role Phone Asher Dillon MD Unavailable [...] once daily if needed for Allergy Symptoms. Active liothyronine (CYTOMEL) 5 mcg tablet Take 10 mcg by mouth before breakfast. Active KLOR-CON M20 20 mEq Extended-Release tablet [...] needed (For Wheezing or shortness of breath). Active buPROPion (WELLBUTRIN XL) 150 mg Extended-Release tablet Take 150 mg by mouth once daily. 02/25/2020 Active levothyroxine (SYNTHROID) 137 mcg tablet Take 137 mcg by mouth before breakfast. 01/14/2020 Active metoprolol succinate (TOPROL XL) 25 mg Sustained-Release tablet Take 25 mg by mouth once daily. 02/13/2020 Active denosumab (PROLIA) 60 mg/mL injection Inject 60 mg subcutaneous EVERY 6 MONTHS. Active traZODone (DESYREL) 50 mg tablet Take 2 tablets by mouth at bedtime. 02/12/2020 Active cholecalciferol, Vitamin D3, (VITAMIN D-3) 2,000 unit tablet Take 2,000 Units by mouth once daily. Active CALCIUM ORAL Take 1 tablet by mouth once daily. Active loperamide (IMODIUM A-D) 2 mg tablet Take 2-4 mg by mouth each time if needed for Diarrhea. Take 4mg by mouth with 1st loose stool, then 2mg with each subsequent loose stool. Max 16 mg in 24 hrs Active multivitamin/iron/ folic acid (CENTRUM ORAL) Take 1 tablet by mouth once daily. Active oxyCODONE-acetamin ophen, 5-325 mg, (PERCOCET) 5-325 mg per tabletIndications: Status post right hip replacement Take 1-2 tablets by mouth every 4 hours if needed for Pain Max acetaminophen dose: 4000mg in 24 hrs. 30 tablet 03/25/2020 Active amitriptyline (ELAVIL) 25 mg tablet Take 25 mg by mouth at bedtime. Active melatonin 5 mg chew Take 5 mg by mouth at bedtime. Active prednisoLONE acetate 1% ophthalmic (ECONOPRED PLUS, PRED FORTE, OMNIPRED) suspension Place 1 Drop into left eye 4 times daily. Start after surgery Active fluconazole (DIFLUCAN) 100 mg tablet Take 100 mg by mouth once daily. 10/27/2019 Active neomycin-polymyxin -dexamethasone (MAXITROL) 3.5mg/mL-10,000 unit/mL-0.1 % ophthalmic suspension INSTILL 1 DROP INTO LEFT EYE FOUR TIMES A DAY DIRECTED START AFTER SURGERY. USE UNTIL GONE. 05/05/2020 Active furosemide (LASIX) 40 mg tablet Take 40 mg by mouth once daily. 08/15/2020 Active sertraline (ZOLOFT) 100 mg tablet Take 1 tablet by mouth once daily. 10/16/2020 Active moxifloxacin (VIGAMOX) 0.5 % ophthalmic solution PLEASE SEE ATTACHED FOR DETAILED DIRECTIONS 10/07/2020 Active brimonidine (ALPHAGAN) 0.2 % ophthalmic solution Place 1 Drop into left eye 3 times daily. 10/12/2020 Active Active Problems Problem Noted Date [...] Date Smoking Tobacco: Former Cigarettes Q uit: 2008 Smokeless Tobacco: Never Alcohol Use Standard Drinks/Week Comments No 0 (1 standard drink = 0.6 oz pur e alcohol) Occasional rarely Sex and Gender Information Value Date Recorded Sex Assigned at Not on file Gender Identity Not on file Sexual Orientation Not on file Obstetrics History Last Filed Vital Signs Vital Sign Reading Time Taken Comments Blood Pressure 113/71 10/22/2020 10:00 AM SCRIP CLERK Pulse 61 10/22/2020 9:45 AM SCRIP CLERK Temperature 36.3 ??C (97.3 ??F) 10/22/2020 6:00 AM CS T Respiratory Rate 16 10/22/2020 9:45 AM SCRIP CLERK Oxygen Saturation 93% 10/22/2020 9:45 AM SCRIP CLERK Inhaled Oxygen Concentration - - Weight 76.2 kg (168 lb) 10/20/2020 3:00 PM SCRIP CLERK Height 167.6 cm (5' 6) 10/20/2020 3:00 PM SCRIP CLERK Body Mass Index 27.12 10/20/2020 3:00 PM SCRIP CLERK Plan of Treatment Health Maintenance Due Date [...] season) 2023 07/07/2022 Influenza for age 65+ 06/02/2024 06/13/2017 , 07/02/2016, 07/17/2015, Additional history exists Colonoscopy through age 75 09/13/202409/13 (Completed outside of [facility]) Tetanus booster 01/19/2026 01/20/2016 DEXA/DXA scan for age 65+ Completed 2014, 08/29/2012 (Completed outside of [facility]) Pneumococcal series for age 65+ Completed 6, 09/14/2014 Tdap Completed 01/20/2016 Medical Devices Implanted Type Area Seal Mixer Device Identifier Shelf Expiration Date Model / Serial / Lot Simplex P Bone Cement Implanted:Qty: 1 on 05/14/2018 by Oscar Mina MD at [facility] Right: Knee [employer] 05/01/2020 / / [id number] Simplex P Bone Cement Implanted:Qty: 1 on 05/14/2018 by Oscar Mina MD at [facility] Right: Knee [employer] 11/30/2019 / / [id number] Truliant Femoral Component Implanted:Qty: 1 on 05/14/2018 by Oscar Mina MD at [facility] Right: Knee [employer] 03/27/2028 / / [id number] Truliant Fit Tibial Tray Implanted:Qty: 1 on 05/14/2018 by Oscar Mina MD at [facility] Right: Knee [employer] 12/06/2027 / / [id number] Truliant Psc Tibial Insert Implanted:Qty: 1 on 05/14/2018 by Oscar Mina MD at [facility] Right: Knee [employer] 01/24/2026 / / [id number] Optetrak 3 Peg Patella Implanted:Qty: 1 on 05/14/2018 by Oscar Mina MD at [facility] Right: Knee [employer] 03/29/2023 / / [id number] Optetrak Logic Stem Ext Implanted:Qty: 1 on 05/14/2018 by Oscar Mina MD at [facility] Right: Knee [employer] 07/19/2021 / / [id number] Optetrak Tibial Stem Ext Screw Implanted:Qty: 1 on 05/14/2018 by Oscar Mina MD at [facility] Right: Knee [employer] 02/18/2023 / / [id number] Bone Cement Implanted:Qty: 1 on 10/08/2018 by Oscar Mina MD at [facility] Left: Knee [employer] 05/01/2020 / / [id number] Femoral Component Implanted:Qty: 1 on 10/08/2018 by Oscar Mina MD at [facility] Left: Knee [employer] 03/13/2028 / / [id number] Tibial Tray Implanted:Qty: 1 on 10/08/2018 by Oscar Mina MD at [facility] Left: Knee [employer] 03/27/2028 / / [id number] Stem Extension Implanted:Qty: 1 on 10/08/2018 by Oscar Mina MD at [facility] Left: Knee [employer] 11/12/2022 / / [id number] Stem Extension Screw Implanted:Qty: 1 on 10/08/2018 by Oscar Mina MD at [facility] Left: Knee [employer] 12/12/2022 / / [id number] Tibial Insert Implanted:Qty: 1 on 10/08/2018 by Oscar Mina MD at [facility] Left: Knee [employer] 10/04/2025 / / [id number] Patella Implanted:Qty: 1 on 10/08/2018 by Oscar Mina MD at [facility] Left: Knee [employer] 06/10/2023 / / [id number] Bone Cement Implanted:Qty: 1 on 10/08/2018 by Oscar Mina MD at [facility] Left: Knee [employer] 11/30/2019 / / [id number] Constrained Liner Implanted:Qty: 1 on 03/24/2020 by Oscar Mina MD at [facility] Right: Hip [employer] 11/15/2023 / / [id number] Constrained Modular Head Implanted:Qty: 1 on 03/24/2020 by Oscar Mina MD at [facility] Right: Hip [employer] 03/21/2029 / / [id number] Procedures Procedure Name Priority Date/Time Associated Diagnosis Comments XR DXA BONE DENSITY 2 SITES AXIAL Routine 04/23/2015 8:30 AM CDT Compression fracture Osteoporosis from Last 3 Months or Most Recently Relevant to Health Maintenance Results * XR DXA BONE DENSITY 2 SITES (04/23/2015 8:30 AM CDT) Anatomical Region Laterality Modality Spine, HIPS, HIPL, HIPR Bone Den sitometry 04/29/2015 3:19 PM CDT Impressions 04/30/2015 10:25 AM CDT ??Osteoporosis. ?? National Osteoporosis Foundation Recommendations for Pharmacologic Treatment: A hip or vertebral fracture T-score ? -2.5 at the femoral neck or spine after appropriate evaluation to exclude secondary causes Low bone mass (T-score between -1.0 and -2.5 at the femoral neck or spine) and a 10-year probability of a hip fracture ? 3% or a 10-year probability of a major osteoporosis-related fracture ? 20% based on the FRAX?? score Clinicians judgment and/or patient preferences may indicate treatment for people with 10-year fracture probabilities above or below these levels TERMS: BMD: Bone mineral density (g/cm2) T- score: Standard deviation of the patient's bone mineral density from that of a young adult. Z-score: Standard deviation of the patient's BMD from that of an age matched patient. VALUES according to the World Health Organization: Normal range: Plus or minus one standard deviation Osteoporosis: BMD of 2.5 standard deviations below that of a young adult (i.e. T score -2.5 or less) in a patient without preexisting fractures or 1.5 standard deviations below that of a young adult (i.e. T score -1.5) for a patient with preexisting fractures. Osteopenia: Values falling between one standard deviation and those values where osteoporosis is reached. The terms osteopenia and osteoporosis are valid for postmenopausal women and men age >50. ??For premenopausal women, men age <50, and children, bone mineral density characterization is based on Z score, with a Z score of < -2.0 indicating bone mineral density less than expected for age. 1FRAX?? score: Risk in percentage of hip or other major fracture within 10 years based on World Health Organization FRAX?? model. According to the International Society of Clinical Densitometry, FRAX?? with BMD measurement predicts risk of fractures better than BMD alone. ??FRAX?? does not take into account multiple clinical factors, therefore the patient's actual risk may be higher or lower than that predicted by FRAX??. FRAX?? is not valid in patients who have been, or are being treated for osteoporosis by pharmacologic means. It has only been validated for postmenopausal women and men age >50. Kishan Gifford M.D. Body/Diagnostic Radiologist [employer]. [email or web address] / Narrative 04/30/2015 10:25 AM CDT DEXA SCAN, 04/23/2015 INDICATION: ??64-year-old woman. ??History of right hip replacement. ?? Postmenopausal. ??History of osteoporosis. ??History of gastric bypass. ??On diuretics, calcium, vitamin D, Fosamax and thyroid medication. ?? COMPARISON: ??This is a baseline examination at [facility]. ?? FINDINGS: ??Bone mineral density study was performed using the [employer] bone densitometer. The results of the study are expressed as bone mineral density (BMD) are as follows: Lumbar Spine BMD: ??0.737 g/cm2 T-score: -3.6 Z-score: -2.0 Left Femoral Neck BMD: ??0.655 g/cm2 T-score: -2.8 Z-score: -1.2 FRAX?? score1: ??Not applicable. Dominga Patel MD DEXA from Last 3 Months or Most Recently Relevant to Health Maintenance Advance Directives * Full Code (Latest Code Status on File) Date Activated Date Inactivated Comments 05/14/2020 1:28 PM 05/14/2020 7:20 PM * Full Code Date Activated Date Inactivated Comments 03/24/2020 3:16 PM 03/27/2020 7:04 PM * Full Code Date Activated Date Inactivated Comments 03/24/2020 11:17 AM 03/24/2020 3:15 PM * Full Code Date Activated Date Inactivated Comments 03/01/2019 3:13 PM 03/01/2019 7:28 PM Question Answer Comments Code Status Discussion: Discussed * Full Code Date Activated Date Inactivated Comments 10/08/2018 10:12 AM 10/12/2018 2:19 AM Care Teams Gis Technician Relationship Specialty Start Date End Date Jannie Giordano DO [address] [place] [address] PCP - General Family Practice 03/17/20 Asher Dillon MD [address] [place] [address] [place] [address] 02/09/15
--- NOTE | 2024-02-01 09:15 | FL_ITS ---
Patient: RALF HERNANDEZ Facility:?[facility] Patient ID:?[id number] Site Patient ID:?[id number]. Site :?[id number] Study:?XRay-Extremity Right Shoulder injection to -02/01/2024 10:06:11 AM Ordering Physician:CECI Final Report: Indication: PRE CT INJECTION, R/O ROTOR CUFF TEAR ? Comparison: 11/22/2023 Procedure : Informed consent was obtained. The site was marked. Time-out was performed. The skin of the right shoulder was cleansed with ChloraPrep. A sterile drape was placed. 8 cc of 1 percent lidocaine was administered for superficial anesthesia. Subsequently a 22 gauge spinal needle was introduced into the right shoulder joint under intermittent fluoroscopic guidance. Injection of 2 cc nonionic Omnipaque 240 contrast confirmed intra-articular location. Subsequently 3 cc of Omnipaque 240 and air injected. The needle was removed and hemostasis achieved with direct pressure. A dressing was placed. The patient tolerated the procedure well without immediate complication and was immediately sent to CT for imaging. Total fluoroscopy time 28 seconds. Impression: Successful fluoroscopically guided right shoulder arthrogram for CT with positive and negative contrast. Dictated by Christiano Arcos MD @ 02/01/2024 10:25:16 AM Signed by:?Christiano Arcos MD @02/01/2024 10:25:16 AM (Electronic Signature)
--- NOTE | 2024-02-01 10:00 | CT_ITS ---
Patient: RALF HERNANDEZ Facility:?[facility] Patient ID:?[id number] Site Patient ID:?[id number]. Site :?[id number] Study:?CT-Extremity Right SHOULDER POST ARTHROGRAM-02/01/2024 11:29:46 AM Ordering Physician:?DR. NICHOLSON Final Report: EXAM: CT OF THE RIGHT SHOULDER, ARTHROGRAM CLINICAL INDICATION: Pain following fall. COMPARISON PLAIN FILMS: 11/22/2023. COMPARISON CROSS-SECTIONAL IMAGING STUDIES: None. TECHNICAL: CT of the shoulder with axial images following intra-articular injection of dilute iodinated contrast. Sagittal oblique and coronal oblique images were created. FINDINGS: ROTATOR CUFF AND DELTOID: Supraspinatus: Full-thickness tear of the entire supraspinatus tendon with medial retraction to the superior glenoid. No muscular atrophy. Infraspinatus: Examination is difficult the rotation and subluxation of the humeral. There is a significant tear of the infraspinatus tendon. However a portion of the infraspinatus tendon remains intact. No muscle atrophy. Subscapularis: Partial-thickness articular surface interstitial tearing. No full-thickness tear. No muscle atrophy. Teres Minor: No partial thickness articular surface or full thickness tendon tear. No atrophy. Deltoid: No atrophy. LONG HEAD BICEPS TENDON: No high grade tear or subluxation. CORACOACROMIAL ARCH: Morphology: Type 2 acromion. No downsloping. No subacromial spur. Acromiohumeral Interval: Narrowed humeral acromial interval secondary to superior subluxation of the humeral head. Coracohumeral Interval: Normal. Bursa: Large amount of fluid in the subacromial subdeltoid bursa. ACROMIOCLAVICULAR JOINT: Advanced arthropathy. GLENOHUMERAL JOINT: Labrum: Diffuse tearing and degeneration. Cartilage: High grade chondral loss. Joint Space: Moderate synovitis. Glenohumeral alignment and capsule: There is superior and posterior subluxation of the humeral head relative to the glenoid. The humeral head articulates on the undersurface of the acromion. OSSEOUS STRUCTURES: No fractures are evident. SOFT TISSUES: Moderate emphysematous changes in the lung. No soft tissue edema, fluid collection or hematoma. IMPRESSION: 1. Full-thickness tear of the supraspinatus tendon with medial retraction. 2. Valuation of the infraspinatus is difficult due to rotation and subluxation. There is a significant tear of the infraspinatus tendon. 3. Partial-thickness articular surface tear of the subscapularis tendon. 4. Superior and posterior subluxation of the humeral head relative to the glenoid. 5. Diffuse tearing and degeneration of the labrum. 6. High-grade chondromalacia. 7. Glenohumeral synovitis. 8. Emphysematous changes in the lungs. Please note that all CT scans at this facility use dose modulation, iterative reconstruction, and/or weight-based dosing when appropriate to reduce radiation dose to as low as reasonably achievable. Dictated by Bar Jj MD @ 02/01/2024 2:46:34 PM Signed by:?Bar Jj MD @02/01/2024 2:46:34 PM (Electronic Signature)
== END 2024-02-01 08:57 | disposition home or self-care (01) ==
LOC: RAD 08:57
PROVIDERS: Visit Provider Orthopaedic Surgery
DX: M75.101 Unspecified rotator cuff tear or rupture of right shoulder, not specified as traumatic (principal); S46.011D Strain of muscle(s) and tendon(s) of the rotator cuff of right shoulder, subsequent encounter; M94.211 Chondromalacia, right shoulder; M65.9 Synovitis and tenosynovitis, unspecified; M12.811 Other specific arthropathies, not elsewhere classified, right shoulder
CPT/HCPCS: 23350; 73201; 77002; Q9966

== ENCOUNTER 2024-02-09 06:22 | Day surgery (SDC) | payer MEDICARE, BC, SELFPAY ==
[2024-02-09] VITALS (16 sets, daily range): BP systolic 111–130; BP diastolic 55–77; PULSE 55–74; RESP 12–18; TEMP 36.3–36.6; O2SAT 91–97; BMI 26.8
--- OUTSIDE RECORDS SUMMARY | 2024-02-09 06:23 | XMS_ITS | Clinical Summary ---
Author Name Unknown Organization [facility] Address [place], [place] [address] Care Team Providers Care Research And Insights Executive Name Role Phone Asher Dillon MD Unavailable [...] Comments Blood Pressure 113/71 10/22/2020 10:00 AM WATER OPERATOR Pulse 61 10/22/2020 9:45 AM WATER OPERATOR Temperature 36.3 ??C (97.3 ??F) 10/22/2020 6:00 AM CS T Respiratory Rate 16 10/22/2020 9:45 AM WATER OPERATOR Oxygen Saturation 93% 10/22/2020 9:45 AM WATER OPERATOR Inhaled Oxygen Concentration - - Weight 76.2 kg (168 lb) 10/20/2020 3:00 PM WATER OPERATOR Height 167.6 cm (5' 6) 10/20/2020 3:00 PM WATER OPERATOR Body Mass Index 27.12 10/20/2020 3:00 PM WATER OPERATOR Plan of Treatment Health Maintenance Due Date [...] through age 75 09/13/202409/13 (Completed outside of [facility]) Tetanus booster 01/19/2026 01/20/2016 DEXA/DXA scan for age 65+ Completed 2014, 08/29/2012 (Completed outside of [facility]) Pneumococcal series for age 65+ Completed 6, 09/14/2014 Tdap Completed 01/20/2016 Medical Devices Implanted Type Area Central Services Tech Device Identifier Shelf Expiration Date Model / Serial / Lot Simplex P Bone Cement Implanted:Qty: 1 on 05/14/2018 by Oscar Mina MD at [facility] Right: Knee [employer] 05/01/2020 / / [id number] Simplex P Bone Cement Implanted:Qty: 1 on 05/14/2018 by Oscar Mina MD at [facility] Right: Knee [employer] 11/30/2019 / / [id number] [employer]iant Femoral Component Implanted:Qty: 1 on 05/14/2018 by Oscar Mina MD at [facility] Right: Knee [employer] 03/27/2028 / / [id number] Truliant Fit Tibial Tray Implanted:Qty: 1 on 05/14/2018 by Oscar Mina MD at [facility] Right: Knee [employer] 12/06/2027 / / [id number] Truliant Psc Tibial Insert Implanted:Qty: 1 on 05/14/2018 by Oscar Mina MD at [facility] Right: Knee [employer] 01/24/2026 / / [id number] Optetrak 3 Peg Patella Implanted:Qty: 1 on 05/14/2018 by Oscar Mina MD at [facility] Right: Knee [employer] 03/29/2023 / / [id number] Optetrak Logic Stem Ext Implanted:Qty: 1 on 05/14/2018 by Oscar Mina MD at [facility] Right: Knee [employer] 07/19/2021 / / [id number] Optetrak Tibial Stem Ext Screw Implanted:Qty: 1 on 05/14/2018 by Oscar Mina MD at [facility] Right: Knee [employer] 02/18/2023 / / [id number] Bone Cement Implanted:Qty: 1 on 10/08/2018 by Oscar Mina MD at [facility] Left: Knee [employer] 05/01/2020 / / [id number] Femoral Component Implanted:Qty: 1 on 10/08/2018 by Oscar Mina MD at [facility] Left: Knee [employer] 03/13/2028 / / [id number] Tibial Tray Implanted:Qty: 1 on 10/08/2018 by Oscar Mina MD at [facility] Left: Knee [employer] 03/27/2028 / / [id number] Stem Extension Implanted:Qty: 1 on 10/08/2018 by Oscar Mina MD at [facility] Left: Knee [employer] 11/12/2022 / / [id number] Stem Extension Screw Implanted:Qty: 1 on 10/08/2018 by Oscar Mina MD at [facility] Left: Knee [employer] 12/12/2022 / / [id number] Tibial Insert Implanted:Qty: 1 on 10/08/2018 by Oscar Mina MD at [facility] Left: Knee [employer] 10/04/2025 / / [id number] Patella Implanted:Qty: 1 on 10/08/2018 by Oscar Mina MD at [facility] Left: Knee [employer] 06/10/2023 / / [id number] Bone Cement Implanted:Qty: 1 on 10/08/2018 by Oscar Mina MD at [facility] Left: Knee [employer] 11/30/2019 / / [id number] Constrained Liner Implanted:Qty: 1 on 03/24/2020 by Oscar Mina MD at [facility] Right: Hip [employer] 11/15/2023 / / [id number] Constrained Modular Head Implanted:Qty: 1 on 03/24/2020 by Oscar Mina MD at [facility] Right: Hip [employer] 03/21/2029 / / [id number] Procedures Procedure Name Priority Date/Time Associated Diagnosis [...] age >50. Kishan Gifford M.D. Body/Diagnostic Radiologist [employer]. [email or web address] / Narrative 04/30/2015 10:25 AM CDT DEXA SCAN, 04/23/2015 INDICATION: ??64-year-old woman. ??History of right hip replacement. ?? Postmenopausal. ??History of osteoporosis. ??History of gastric bypass. ??On diuretics, calcium, vitamin D, Fosamax and thyroid medication. ?? COMPARISON: ??This is a baseline examination at [facility]. ?? FINDINGS: ??Bone mineral density study was performed using the [employer] bone densitometer. The results of the study [...] 10:12 AM 10/12/2018 2:19 AM Care Teams Research And Insights Executive Relationship Specialty Start Date End Date Jannie Giordano DO [address] [place] [address] PCP - General Family Practice 03/17/20 Asher Dillon MD [address] [place] [address] [place] [address] 02/09/15
--- OUTSIDE RECORDS SUMMARY | 2024-02-09 06:23 | XMS_ITS | Continuity of Care Document ---
Author Name Unknown Organization [facility] Address [address] [address] [place] [address] Phone Care Team Providers Care Product Promoter Sales Person Name Role Phone Unavailable Unavailable Unavailable Procedures Procedure Date Colonoscopy Flex; Dx (sep Pro) 14 Ugi Endo; Dx W/wo Collec Specm 14 Init Hosp-da E&m Mod Severity 4 Advance Directives Directive Yes / No Effective Date File Name No Information Encounters Encounter Description Practice Location Reason(s) For Visit Diagnoses Date Provider Providers Copied on Encounter [facility], [address] [address], [place], [place], [id number], tel:[phone] [facility] No Information No Information Referring Provider: Ceferino Dia MD, [address] [place] [address], [place], [address] . tel:[phone] Init Hosp-da E&m Mod Severity [facility], [address] [address], [place], [place], [id number], tel:[phone] [facility] No Information [place] [facility]. [address] [place] [address], [place] [address], [place], [place], [id number], [place]. tel:[phone] Referring Provider: Ceferino Dia MD, [address] [place] [address], [place], [address] . tel:[phone] Family History Family Member Type Diagnosis Age At Onset No Information Payers Payer name Insurance type Covered constitution party ID Authorneetua sarah(s) [employer] [place] [employer] BL [id number] Social History Type Description Quantity Date Captured [...]
[2024-02-09] MEDS: SODIUM CHLORIDE 0.9 % (FLUSH) 10 ML SYRINGE IVF (06:45)
[2024-02-09] MEDS: LACTATED RINGERS 1000 ML 1,000 ML 100 ML IV ×2 (06:45→09:05)
--- NOTE | 2024-02-09 07:26 | W.PM.H&PU ---
History & Physical Update History & Physical Update H&P Reviewed and patient assessed: No changes noted
--- NOTE | 2024-02-09 07:27 | P.ORPRC_ITS ---
Procedure Note Date of procedure: 02/09/24 Procedure: PREOPERATIVE DIAGNOSES: 1. Right shoulder rotator cuff tear. 2. Right shoulder glenohumeral osteoarthritis POSTOPERATIVE DIAGNOSES: 1. Massive right shoulder rotator cuff tear - upper subscapularis, supraspinatus, and infraspinatus 2. Right shoulder glenohumeral osteoarthritis. 3. Right shoulder biceps tendinosis NAME OF OPERATION: 1. Right shoulder arthroscopic rotator cuff repair. 2. Right shoulder arthroscopic biceps tenotomy 3. Right shoulder arthroscopic limited debridement 4. Right shoulder arthroscopic bursectomy subacromial decompression 5. Modifier-22: Massive size of the rotator cuff tear and poor bone quality added to the technical difficulty of the procedure requiring significant more time and effort to complete the procedure. SURGEON: Perez Zepeda MD BALANCE SCREWHEAD POLISHER: Calli Ng P.A.-C. An licensed physical therapy assistant was critical for this case to aide in patient positioning, suture manipulation, arm positioning, instrument positioning, and closure. ANESTHESIA: General plus preoperative supraclavicular block. IMPLANTS: Single 2.6 mm Arthrex FiberTak suture anchor and Three Arthrex 4.75 mm BioComposite Knotless SwiveLock suture anchors were implanted. Arthrex 2.6 mm FiberTak suture anchor, 4.75 mm BioComposite SwiveLock anchor, 5.5 mm BioComposite SwiveLock anchor, and a BioComposite 7.0 mm BioComposite SwiveLock anchor pulled out and were not implanted. COMPLICATIONS: Poor bone quality resulted in inability to place lateral row anchors ESTIMATED BLOOD LOSS: 10 mL INDICATIONS: The patient is a pleasant, 73-year-old female who sustained a right shoulder dislocation 2-3 months ago. Following this injury she developed persistent right shoulder pain and weakness which did not improve with conservative treatment. Physical exam and imaging were consistent with a rotator cuff tear. Given these findings and failure to improve with nonoperative management, recommendation was made for for surgical intervention consisting of arthroscopic rotator cuff repair versus reverse total shoulder arthroplasty. After discussion, patient elected to proceed with surgery to repair the rotator cuff. FINDINGS: Exam under anesthesia revealed stable shoulder with full passive range of motion. The diagnostic arthroscopy revealed diffuse grade 4 chondromalacia of the humeral head and glenoid with degenerative tearing of the anterior, superior, and posterior labrum. There was partial-thickness tearing of the intra-articular portion of the long head of the biceps tendon and tendon was subluxed into the upper border of the subscapularis. The border of the subscapularis tendon was partially torn. There was a massive tear involving the entire supraspinatus and infraspinatus, both of which were retracted medially approximately 3 cm. No loose bodies were identified within the pouch or subscapularis recess. Poor bone quality in the humeral head which prevented placement of anchors for lateral row repair. PROCEDURE: Following a thorough discussion of risks, benefits, and altern atives, consent was obtained and the operative shoulder was marked. A supraclavicular nerve block was performed by anesthesia staff in preop holding. The patient was brought to the operating room and placed supine on the operating table. Induction of anesthesia was completed, and patient was given IV Ancef preoperatively for prophylaxis. Patient was placed into the beach chair position. Head was placed in padded balance screwhead polisher in neutral alignment, and all bony prominences were well padded. The operative shoulder and upper extremity were prepped and draped in the appropriate sterile fashion. A surgical time-out was performed confirming patient identity, surgical site, and procedure. The glenohumeral joint was injected with 40 mL of normal saline using and 18g spinal needle from a posterior approach. Posterior portal was established. Anterior portal was established after localization with a spinal needle and a 7.0 mm cannula was placed here. Diagnostic arthroscopy was performed with findings as noted above. Attention was 1st directed to debridement of the anterior, posterior and superior labrum. Frayed portions of the labrum were debrided with a motorized shaver. After debridement remnant labrum was confirmed to be stable. Attention was then directed to the biceps tendon of the tendon had partial-thickness tearing and was subluxing into the upper border of the subscapularis. A biceps tenotomy was subsequently performed using arthroscopic scissors. Next we directed our attention to repair of the subscapularis. An anterior superior lateral portal was established and a 7.0 mm cannula was placed here. Of the footprint of the upper border of subscapularis was debrided of soft tissue and lightly decorticated. A 2.6 mm FiberTak suture anchor was placed in the medial border of the footprint. One set of FiberTape sutures were passed through the upper border the subscapularis using the Rkylin suture Passer. The sutures were then tied and remnant sutures were cut, completing a repair of the upper subscapularis. The other set of fiber tape sutures were not needed and were subsequently removed. The camera was then placed into the subacromial space. A lateral portal established after localization with spinal needle. The shaver was then inserted and a complete subacromial bursectomy and partial acromioplasty was performed with a combination of radiofrequency ablator and the bone cutting shaver. The rotator cuff was then evaluated. There was noted be a massive tear involving entire supraspinatus and infraspinatus. The cuff tissue was easily mobilized back to its footprint. A passport cannula was placed into the lateral portal. The footprint was then debrided of soft tissue and lightly decorticated using the bone-cutting shaver. Next 3 small stab incisions were placed off the lateral border the acromion for placement of the medial row anchors. A FiberTak anchor was initially used but this pulled out. Therefore we switched to knot less 4.75 mm SwiveLock anchors which were placed in the medial aspect of the supraspinatus and infraspinatus footprint from anterior to posterior. A FiberLink suture was then used to shuttle each set of sutures through the cuff lateral to the musculotendinous junction. After all sets of sutures had been passed, a medial row repair was completed using the knotless sutures. We then turned our direction to the lateral row repair. Initially, we tried to place an anchor lateral to the anterior aspect of the footprint incorporating 3 of the previously placed suture tapes, however, this anchor had poor purchase in the bone and easily pulled out. We subsequently tried placing both a 5.5 mm and a 7.0 mm anchor, but we could not achieve good purchase in the bone and these anchors pulled out as well. We then attempted to place an anchor lateral to the posterior aspect of the footprint, but the 5.5 mm and 7.0 mm anchors did not hold due to the poor bone quality in this location as well. Due to poor the poor bone quality and inability to achieve good purchase with the anchors, it was determined that a lateral row repair could not be performed. Therefore, additional medial row fixation was performed by tying 1 posterior FiberTape to the middle FiberTape medially, and tying 1 anterior FiberTape to the other middle FiberTape medially. After these knots were tied, all remnant sutures were cut and removed. At this point, the cuff was inspected and was noted to be well secured to the medial aspect of the footprint in an anatomic position without significant tension. The shoulder was placed through range of motion and the rotator cuff was found to be stable. Instruments and cannulas were removed and excess fluid was drained from the subacromial space. Wound closure was performed with 4-0 nylon simple interrupted sutures followed by application of sterile dressing. The arm was then placed into an abduction sling. The patient was then rotated to the supine position, woken from anesthesia, and transferred to the PACU in stable condition. PLAN: 1. Discharged to home day of surgery. 2. Ice for pain and swelling. 3. Tylenol and oxycodone as needed for pain control. 4. Abduction sling at all times except for ROM and showering. -Remove sling several times daily for pendulum exercises finger, wrist, and elbow range of motion. 5. Follow-up in orthopedic clinic in 10-14 days for wound check and suture removal. 6. Will initiate formal physical therapy starting 6 weeks postoperatively per the complex rotator cuff repair protocol.
[2024-02-09] MEDS: fentaNYL 100 MCG/2 ML inj IVP (07:55)
[2024-02-09] MEDS: MIDAZOLAM HCL 1 MG/ML inj IVP (07:55)
--- NOTE | 2024-02-09 08:02 | SUR.PREOP ---
TIME?OUT:?0755 PT/Robel HEIN RN/Nahid FENTON MDA?VERIFICATION?OF?SURGICAL?SITE,?PROCEDURE,?AND?CONSENT OBTAINED?PRIOR?TO?INVASIVE?PROCEDURE.
[2024-02-09] MEDS: EPINEPHrine 1 MG in SODIUM CHLORIDE IRRIG SOLUTION 3,000 ML 9003 MG IRRIGATION ×21 (09:05→12:04)
[2024-02-09] MEDS: CEFAZOLIN 2 GM INJ IVP (09:05)
--- NOTE | 2024-02-09 12:26 | P.NB_ITS ---
Nerve Block Nerve Block Time Seen by Provider: 07:58 Date Seen: 02/09/24 Type of block requested by surgeon for post-operative analgesia: supraclavicular Side: right Time out performed: Yes Verification of patient name: Yes Verification of date of : Yes Site marking: site marked Name of person performing procedure: Enrique Continuous monitoring Was continuous monitoring of O2 sat, B/P, vehicle monitor technician, recorded every 15 minutes?: Yes Procedure Checklist: sterile prep, needles and gloves Ultrasound guided. Images saved: Yes Medications given in 5ml increments after negative aspiration: Ropivicaine %: 0.5 mL: 20 Needle gauge: 22 Decadron (mg): 10 Precedex (mcg): 25 Patient tolerated procedure well: Yes Block Charges Block Charge (with Pro Fee): Brachial Plexus Use of Ultrasound Machine for Block: Yes- US Guidance/pain block
--- NOTE | 2024-02-09 12:27 | W.ANESCHARGE ---
Anesthesia Charges Start Date/Time Anesthesia Start Date: 02/09/24 Anesthesia Start Time: 08:47 Stop Date/Time Anesthesia Stop Date: 02/09/24 Anesthesia Stop Time: 12:44 Summary Extremes of Age - Over 70 or under 1: MDA
[2024-02-09] MEDS: fentaNYL 100 MCG/2 ML inj 50 MCG IVP ×2 (12:55→13:02)
--- NOTE | 2024-02-09 12:55 | W.ANESCHARGE ---
Anesthesia Charges Start Date/Time Anesthesia Start Date: 02/09/24 Anesthesia Start Time: 08:47 Stop Date/Time Anesthesia Stop Date: 02/09/24 Anesthesia Stop Time: 12:44 Summary Extremes of Age - Over 70 or under 1: SECURITIES SETTLEMENT PROCESSOR
[2024-02-09] MEDS: OxyCODONE/APAP 5-325 TABLET PO (13:50)
== END 2024-02-09 14:49 | disposition home or self-care (01) ==
LOC: OR 06:22
PROVIDERS: Visit Provider Orthopaedic Surgery
PROC: (CPT 29805; principal; 2024-02-09 08:00)
DX: S46.011A Strain of muscle(s) and tendon(s) of the rotator cuff of right shoulder, initial encounter (principal); M19.011 Primary osteoarthritis, right shoulder; M75.21 Bicipital tendinitis, right shoulder; G89.18 Other acute postprocedural pain; M24.811 Other specific joint derangements of right shoulder, not elsewhere classified; S43.431A Superior glenoid labrum lesion of right shoulder, initial encounter; M94.211 Chondromalacia, right shoulder
CPT/HCPCS: 29827; 29828; 29826; 29822; 01630; 64415; 76942; 99100; A9270; C1713; J0171; J0330; J0690; J1100; J2250; J2405; J2704; J2710; J2795; J3010; J7120; L3670

== ENCOUNTER 2024-04-02 13:23 | Emergency (ER) | payer MEDICARE, BC, SELFPAY ==
[2024-04-02 13:29] VITALS: BP 143/89; PULSE 82; RESP 18; TEMP 37.1; O2SAT 94; BMI 26.6
--- NOTE | 2024-04-02 13:39 | CRLHL7_ITS ---
For Patients: As a result of the Century Cures Act, medical imaging exams and procedure reports are released immediately into your electronic medical record. You may view this report before your referring provider. If you have questions, please contact your health care provider. INDICATION: Fall TECHNIQUE: Noncontrast axial CT of the head. Coronal and sagittal reformats. Bone and soft tissue algorithms. COMPARISON: CT head 11/22/2023 FINDINGS: Left supraorbital scalp hematoma and soft tissue emphysema, compatible with laceration. No skull fracture identified. Stable homogeneous hyperdensity throughout the vitreous chamber most compatible with intra-ocular silicone oil. Unless scleral buckle and bilateral lens implants. No skull fracture. No acute intracranial hemorrhage or abnormal extra-axial fluid collection identified. 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 Stable scattered ossification of the interhemispheric falx, with the partially calcified presumed meningioma along the left posterior interhemispheric falx. Stable subjacent mass effect on the left parietal convexity, without significant parenchymal edema, midline shift, ventricular effacement or herniation. Albrecht-white matter differentiation is grossly preserved. Midline structures are otherwise unremarkable. Calcific intracranial atherosclerotic plaquing. Clear visualized paranasal sinuses and mastoid air cells. IMPRESSION: 1. Left supraorbital soft tissue laceration with hematoma and punctate soft tissue air. 2. No skull fracture or acute intracranial hemorrhage identified. 3. Homogeneous hyperdensity throughout the left globe vitreous chamber, most compatible with intra-ocular silicone oil. 4. Stable posttreatment changes in the region of the anterior communicating artery. 5. Stable partially calcified presumed meningioma at the left posterior interhemispheric falx. Please note that all CT scans at this facility use dose modulation, iterative reconstruction, and/or weight-based dosing when appropriate to reduce radiation dose to as low as reasonably achievable. Dictated by Neva Richards MD @ 04/02/2024 2:46:27 PM (Electronically Signed)
--- OUTSIDE RECORDS SUMMARY | 2024-04-02 13:47 | XMS_ITS | Clinical Summary ---
Author Organization [facility] Address [place], [place] [address] Care Team Providers Care Sanitation Worker Cleaning Machinery Name Role Phone Asher Dillon MD Unavailable [phone] Jannie Giordano DO Primary Care Provid er [...] fracture at L3.Provider: Dominga Patel MD Pharmacy: [facility]. Date Signed: 02/16/2015 Expiration Date: 02/17/2016 Diagnosis: [...] Comments Blood Pressure 113/71 10/22/2020 10:00 AM VENDING MACHINE REFILLER Pulse 61 10/22/2020 9:45 AM VENDING MACHINE REFILLER Temperature 36.3 ??C (97.3 ??F) 10/22/2020 6:00 AM CS T Respiratory Rate 16 10/22/2020 9:45 AM VENDING MACHINE REFILLER Oxygen Saturation 93% 10/22/2020 9:45 AM VENDING MACHINE REFILLER Inhaled Oxygen Concentration - - Weight 76.2 kg (168 lb) 10/20/2020 3:00 PM VENDING MACHINE REFILLER Height 167.6 cm (5' 6) 10/20/2020 3:00 PM VENDING MACHINE REFILLER Body Mass Index 27.12 10/20/2020 3:00 PM VENDING MACHINE REFILLER Plan of Treatment Health Maintenance Due Date Last Done Comments Depression screening for age 12+ 1960 BMI (ht and wt on same day) for age 18+ 1966 Hepatitis C screening for ag e 18-79 1966 Lipids for age 45-75 1993 Zoster (shingles) series for age 50+ (2 of 3) 04/16/2013 02/19/2013 Medicare Wellness for age 65+ 2013 COVID-19 vaccine series (2022- season) 2023 07/07/2022 Influenza for age 65+ 06/02/2024 06/13/2017 , 07/02/2016, 07/17/2015, Additional history exists Colonoscopy through age 75 09/13/202409/13 (Completed outside of [facility]) Tetanus booster 01/19/2026 01/20/2016 DEXA/DXA scan for age 65+ Completed 2014, 08/29/2012 (Completed outside of [facility]) Pneumococcal series for age 65+ Completed 6, 09/14/2014 Tdap Completed 01/20/2016 Medical Devices Implanted Type Area Plug Overwrap Machine Tender Device Identifier Shelf Expiration Date Model / Serial / Lot Simplex P Bone Cement Implanted:Qty: 1 on 05/14/2018 by Oscar Mina MD at [facility] Right: Knee [employer] 05/01/2020 / / [id number] [id number] P Bone Cement Implanted:Qty: 1 on 05/14/2018 by Oscar Mina MD at [facility] Right: Knee [employer] 11/30/2019 / / [id number] Truliant Femoral Component Implanted:Qty: 1 on 05/14/2018 by Oscar Mina MD at [facility] Right: Knee [employer] 03/27/2028 / / [id number] Truliant Fit Tibial Tray Implanted:Qty: 1 on 05/14/2018 by Oscar Mina MD at [facility] Right: Knee [employer] 12/06/2027 / / [id number] Truliant Psc Tibial Insert Implanted:Qty: 1 on 05/14/2018 by Oscar Mina MD at [facility] Right: Knee [employer] 01/24/2026 / / [id number] Optetrak 3 Peg Patella Implanted:Qty: 1 on 05/14/2018 by Oscar Mina MD at [facility] Right: Knee [employer] 03/29/2023 / / [id number] Optetrak Logic Stem Ext Implanted:Qty: 1 on 05/14/2018 by Oscar Mina MD at [facility] Right: Knee [employer] 07/19/2021 / / [id number] [id number] Tibial Stem Ext Screw Implanted:Qty: 1 on 05/14/2018 by Oscar Mina MD at [facility] Right: Knee [employer] 02/18/2023 / / [id number] Bone Cement Implanted:Qty: 1 on 10/08/2018 by Oscar Mina MD at [facility] Left: Knee [employer] 05/01/2020 / / [id number] Femoral Component Implanted:Qty: 1 on 10/08/2018 by Oscar Mina MD at [facility] Left: Knee [employer] 03/13/2028 / / [id number] Tibial Tray Implanted:Qty: 1 on 10/08/2018 by Oscar Mina MD at [facility] Left: Knee [employer] 03/27/2028 / / [id number] Stem Extension Implanted:Qty: 1 on 10/08/2018 by Oscar Mina MD at [facility] Left: Knee [employer] 11/12/2022 / / [id number] Stem Extension Screw Implanted:Qty: 1 on 10/08/2018 by Oscar Mina MD at [facility] Left: Knee [employer] 12/12/2022 / / [id number] Tibial Insert Implanted:Qty: 1 on 10/08/2018 by Oscar Mina MD at [facility] Left: Knee [employer] 10/04/2025 / / [id number] Patella Implanted:Qty: 1 on 10/08/2018 by Oscar Mina MD at [facility] Left: Knee [employer] 06/10/2023 / / [id number] Bone Cement Implanted:Qty: 1 on 10/08/2018 by Oscar Mina MD at [facility] Left: Knee [employer] 11/30/2019 / / [id number] Constrained Liner Implanted:Qty: 1 on 03/24/2020 by Oscar Mina MD at [facility] Right: Hip [employer] 11/15/2023 / / [id number] Constrained Modular Head Implanted:Qty: 1 on 03/24/2020 by Oscar Mina MD at [facility] Right: Hip [employer] 03/21/2029 / / [id number] Procedures Procedure Name Priority Date/Time Associated Diagnosis [...] age >50. Kishan Gifford M.D. Body/Diagnostic Radiologist Viewpoint. [email or web address] / Narrative 04/30/2015 10:25 AM CDT DEXA SCAN, 04/23/2015 INDICATION: ??64-year-old woman. ??History of right hip replacement. ?? Postmenopausal. ??History of osteoporosis. ??History of gastric bypass. ??On diuretics, calcium, vitamin D, Fosamax and thyroid medication. ?? COMPARISON: ??This is a baseline examination at [facility]. ?? FINDINGS: ??Bone mineral density study was performed using the Pay with a Tweet bone densitometer. The results of the study [...] 10:12 AM 10/12/2018 2:19 AM Care Teams Sanitation Worker Cleaning Machinery Relationship Specialty Start Date End Date Jannie Giordano DO [address] [place] [address] PCP - General Family Practice 03/17/20 Asher Dillon MD [address] [place] [address] [place] [address] 02/09/15
--- NOTE | 2024-04-02 14:09 | ED.GENADULT ---
HPI - General Adult General Date Seen: 04/02/24 Chief complaint: Laceration/Wound Stated complaint: 2 falls - head laceration Time Seen by Provider: 04/02/24 13:34 Source: patient Mode of arrival: ambulatory Limitations: no limitations History of Present Illness HPI narrative: Patient is a 73-year-old woman who is anticoagulated on Eliquis secondary to history of DVT and PE. She had surgery on her right shoulder a number of weeks ago and that arm is in a sling. She says she was getting ready to go to physical therapy today and she thinks she may have tripped on a rug in the bathroom and fell. She denies any problems related to that 1st fall, was able to get up and was heading down to the car when she tripped again and this time she had her head. She is quite clear that she had no time loss consciousness. She does not have a significant headache and denies neck pain. She does have laceration above her left eyebrow. She was able to protect her right arm in the sling, and denies any other new injuries or complaints. Related Data Home Medications ?Medication ?Instructions ?Recorded ?Confirmed furosemide 40 mg tablet 40 mg PO DAILY 02/28/23 04/02/24 levothyroxine 112 mcg tablet 112 mcg PO DAILY 02/28/23 04/02/24 liothyronine 5 mcg tablet 5 mcg PO BID 02/28/23 04/02/24 metoprolol succinate 25 mg 25 mg PO DAILY 02/28/23 04/02/24 tablet,extended release 24 hr oxycodone-acetaminophen 10 mg-325 1 tab PO Q4-6H PRN pain 02/28/23 04/02/24 mg tablet sertraline 100 mg tablet 200 mg PO DAILY 02/28/23 04/02/24 trazodone 50 mg tablet 100 mg PO QPM 02/28/23 04/02/24 umeclidinium 62.5 mcg-vilanterol 1 ea inhalation DAILY 02/28/23 04/02/24 25 mcg/actuation powdr for inhalation (Anoro Ellipta) bupropion HCl 150 mg 24 hr tablet, 150 mg PO QAM 09/29/23 04/02/24 extended release cetirizine 10 mg tablet 10 mg PO DAILY PRN 03/20/24 04/02/24 tobramycin 0.3 % eye drops drp ophthalmic (eye) 03/20/24 03/20/24 Previous Rx's ?Medication ?Instructions ?Recorded albuterol sulfate 90 mcg/actuation 2 puff inhalation Q6-8H PRN 07/04/22 aerosol inhaler bronchospasm #18 ea apixaban 5 mg tablet (Eliquis) 5 mg PO BID #70 tabs 10/02/23 prednisone 10 mg tablet 10 mg PO DIRECTED 17 days #17 10/02/23 tabs Allergies Allergy/AdvReac Type Severity Reaction Status Date / Time aspirin AdvReac Verified 04/02/24 13:35 Review of Systems Status of ROS: Reports: 6 or more systems reviewed and unremarkable except as noted in History and below [facility] Medical History RSV (respiratory syncytial virus pneumonia) ?J12.1 - Respiratory syncytial virus pneumonia (ICD-10) RSV bronchitis ?J20.5 - Acute bronchitis due to respiratory syncytial virus (ICD-10) Pulmonary embolism ?I26.99 - Other pulmonary embolism without acute cor pulmonale (ICD-10) Graves disease ?E05.00 - Thyrotoxicosis with diffuse goiter without thyrotoxic crisis or storm (ICD-10) GERD (gastroesophageal reflux disease) ?K21.9 - Gastro-esophageal reflux disease without esophagitis (ICD-10) Anxiety ?F41.9 - Anxiety disorder, unspecified (ICD-10) Depression ?F32.A - Depression, unspecified (ICD-10) Stage 3 chronic kidney disease ?N18.30 - Chronic kidney disease, stage 3 unspecified (ICD-10) Hyperlipidemia ?E78.5 - Hyperlipidemia, unspecified (ICD-10) Chronic back pain ?M54.9 - Dorsalgia, unspecified (ICD-10) ?G89.29 - Other chronic pain (ICD-10) Peptic ulcer disease ?K27.9 - Peptic ulcer, site unspecified, unspecified as acute or chronic, without hemorrhage or perforation (ICD-10) Meningioma ?D32.9 - Benign neoplasm of meninges, unspecified (ICD-10) Hypothyroidism ?E03.9 - Hypothyroidism, unspecified (ICD-10) Hypertension ?I10 - Essential (primary) hypertension (ICD-10) Acute and chronic respiratory failure with hypoxia ?J96.21 - Acute and chronic respiratory failure with hypoxia (ICD-10) Congestive heart failure ?I50.9 - Heart failure, unspecified (ICD-10) Bronchospasm ?J98.01 - Acute bronchospasm (ICD-10) Surgical History History of arthroscopy of right shoulder (02/09/24) ?Z98.890 - Other specified postprocedural states (ICD-10) History of Ghislaine-en-Y gastric bypass ?Z98.84 - Bariatric surgery status (ICD-10) History of hip replacement ?Z96.649 - Presence of unspecified artificial hip joint (ICD-10) H/O abdominal hysterectomy ?Z90.710 - Acquired absence of both cervix and uterus (ICD-10) History of partial gastrectomy ?Z90.3 - Acquired absence of stomach [part of] (ICD-10) Status post coil embolization of cerebral aneurysm ?Z98.890 - Other specified postprocedural states (ICD-10) Total knee replacement status ?Z96.659 - Presence of unspecified artificial knee joint (ICD-10) Status post appendectomy ?Z90.49 - Acquired absence of other specified parts of digestive tract (ICD-10) Status post cholecystectomy ?Z90.49 - Acquired absence of other specified parts of digestive tract (ICD-10) Family History Brother Alcohol dependence Father Colon cancer Other Breast cancer Social History Narrative: She lives in [place]. Her son Cm lives with her. He is healthcare power of litigation attorney associate. She gets healthcare through [facility], Dr. Jannie Giordano. Quit smoking in 2008. Rarely drinks alcohol. Code status is DNR DNI What is your current living situation?: I presently have a place to live Problems where you live: no known problems Problems where you live details: NA In the past 12 months, utilities in danger of being shut off: no In past 12 months, lack of transportation kept you from medical appts, meetings, work, or getting things needed for daily living: no In the past 12 mos, have been you worried that your food would run out before you had money to buy more?: never true In the past 12 mos, the food you bought just didn't last and you didn't have money to buy more?: never true Highest level of school completed/degree received: high school graduate Smoking Status: Former smoker Do you use any of these nicotine containing products: None Second hand tobacco smoke exposure: No How often do you have a drink containing alcohol: monthly or less Alcohol type: wine How often do you have six or more drinks on one occasion: Never AUDIT-C Alcohol total score: 1 Non-prescribed substance use: denies use Caffeine: No How often does anyone, including family, friends and others, physically hurt you: never How often does anyone, including family, friends and others, insult or talk down to you: never How often does anyone, including family, friends and others, threaten you with harm: never How often does anyone, including family, friends and others, scream or curse at you: never service: No Exam Narrative: Exam Narrative: Vital signs reviewed In general, alert, well-appearing elderly woman. Head: Normocephalic. She has a 1/2 cm laceration over the the left eyebrow. Extraocular movements are full. She notes chronic vision changes in the left eye secondary to a retinal detachment. She has bruising and swelling around the left eye which is mild. She does not have any bony tenderness or deformity of the face. Neck: Nontender to palpation. Heart: Regular rate and rhythm. Lungs: Clear. Breath sounds equal. Abdomen: Soft and nontender. Extremities: Right arm is in a sling. Other extremities atraumatic. Neurologic: She is alert, conversant, moves all extremities equally. Const: Vital Signs, click to edit/add: Vital Signs - 24 hr 04/02/24 13:29 Temperature 98.8 F Pulse Rate [Pulse Oximeter] 82 Respiratory Rate 18 Blood Pressure [Ri ght Upper Arm] 143/89 H Pulse Oximetry 94 Oxygen Delivery Me thod Room Air Documenting provider has reviewed patient's vital signs: yes Course Course ED Course: CT scan of the head ordered. Procedure note: The wound over the left eyebrow was anesthetized with lidocaine with epinephrine and cleaned, explored without evidence of foreign body. I used [address] 4 simple interrupted superficial sutures. She tolerated this well without immediate complication. CT scan shows no acute findings, she does have chronic findings as defined by Radiology:FINDINGS: Left supraorbital scalp hematoma and soft tissue emphysema, compatible with laceration. No skull fracture identified. Stable homogeneous hyperdensity throughout the vitreous chamber most compatible with intra-ocular silicone oil. Unless scleral buckle and bilateral lens implants. No skull fracture. No acute intracranial hemorrhage or abnormal extra-axial fluid collection identified. 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 Stable scattered ossification of the interhemispheric falx, with the partially calcified presumed meningioma along the left posterior interhemispheric falx. Stable subjacent mass effect on the left parietal convexity, without significant parenchymal edema, midline shift, ventricular effacement or herniation. Albrecht-white matter differentiation is grossly preserved. Midline structures are otherwise unremarkable. Calcific intracranial atherosclerotic plaquing. Clear visualized paranasal sinuses and mastoid air cells. IMPRESSION: 1. Left supraorbital soft tissue laceration with hematoma and punctate soft tissue air. 2. No skull fracture or acute intracranial hemorrhage identified. 3. Homogeneous hyperdensity throughout the left globe vitreous chamber, most compatible with intra-ocular silicone oil. 4. Stable posttreatment changes in the region of the anterior communicating artery. 5. Stable partially calcified presumed meningioma at the left posterior interhemispheric falx. She is feeling well, ambulatory around the emergency department without difficulty. Stable for discharge home. Suture removal in 5-7 days, return for infection or features of more significant head injury such as severe headache, vomiting, altered mentation etcetera. Vital Signs Vital signs: Initial Vital Signs Temperature 98.8 F 04/02/24 13:29 Temperature Source Oral 04/02/24 13:29 Pulse Rate 82 04/02/24 13:29 Pulse Rhythm Regular 04/02/24 13:29 Pulse Strength 3+ Normal 04/02/24 13:29 Respiratory Rate 18 04/02/24 13:29 Blood Pressure 143/89 H 04/02/24 13:29 Blood Pressure Mean 107 H 04/02/24 13:29 Blood Pressure Position Semi-Fowlers 04/02/24 13:29 Pulse Oximetry 94 04/02/24 13:29 Oxygen Delivery Method Room Air 04/02/24 13:29 Vital Signs Temperature 98.8 F 04/02/24 13:29 Pulse Rate 82 04/02/24 13:29 Respiratory Rate 18 04/02/24 13:29 Blood Pressure 143/89 H 04/02/24 13:29 Pulse Oximetry 94 04/02/24 13:29 Oxygen Delivery Method Room Air 04/02/24 13:29 Temperature 98.8 F 04/02/24 13:29 Pulse Rate 82 04/02/24 13:29 Respiratory Rate 18 04/02/24 13:29 Blood Pressure 143/89 H 04/02/24 13:29 Pulse Oximetry 94 04/02/24 13:29 Oxygen Delivery Method Room Air 04/02/24 13:29 Discharge Plan Discharge Clinical Impression: Facial laceration, Closed head injury Patient Disposition: Home, Self-Care Condition: Improved Instructions: Laceration (DC), Head Injury (ED) Additional Instructions: Suture removal in 5-7 days at your clinic. Return at any time for signs of infection, severe headache, vomiting, confusion or other new concerns. Prescriptions: No Action cetirizine 10 mg tablet 10 mg PO DAILY PRN tobramycin 0.3 % drops ophthalmic (eye) furosemide 40 mg tablet 40 mg PO DAILY trazodone 50 mg tablet 100 mg PO QPM sertraline 100 mg tablet 200 mg PO DAILY liothyronine 5 mcg tablet 5 mcg PO BID oxycodone-acetaminophen 10-325 mg tablet 1 tab PO Q4-6H PRN (Reason: pain) metoprolol succinate 25 mg tablet extended release 24 hr 25 mg PO DAILY levothyroxine 112 mcg tablet 112 mcg PO DAILY Anoro Ellipta 62.5-25 mcg/actuation blister with device 1 ea INHALATION DAILY bupropion HCl 150 mg tablet extended release 24 hr 150 mg PO QAM Eliquis 5 mg Tablet 5 mg PO BID Qty: 70 0RF Rx Instructions: 2 tabs (10mg) BID for 3 more days. On October 06, start 1tab (5mg) BID prednisone 10 mg tablet 10 mg PO DIRECTED 17 Days Qty: 17 0RF Rx Instructions: 4 tabs for 4d, then 3 tabs po x3d, then 2tabs po x3d, then 1 tab po x7d albuterol sulfate 90 mcg/actuation HFA aerosol inhaler 2 puff inhalation Q6-8H PRN (Reason: bronchospasm) Qty: 18 0RF Follow Up/Referrals: Provider,Not a Local [Primary Care Provider] - Stand Alone Forms: Ready To Travel Info Instructions
== END 2024-04-02 15:41 | disposition home or self-care (01) ==
PROVIDERS: Emergency Provider Emergency Medicine
DX: S01.81XA Laceration without foreign body of other part of head, initial encounter (principal); W01.0XXA Fall on same level from slipping, tripping and stumbling without subsequent striking against object, initial encounter; Y92.002 Bathroom of unspecified non-institutional (private) residence as the place of occurrence of the external cause
CPT/HCPCS: 12011; 70450; 99283; 99284

== ENCOUNTER 2024-05-28 13:00 | Outpatient (RCR) | payer MEDICARE, BC, SELFPAY ==
--- NOTE | 2024-03-22 15:09 | PT.OPEX ---
PT [place] Outpatient Eval PT [facility] Outpatient Eval Start: 03/22/24 07:43 Freq: Status: Active Protocol: Document 03/22/24 07:44 VICENTE (Rec: 03/22/24 15:07 VICENTE [id number]) E-signed By Cristian Jamison DPT Physical Therapy Outpatient Evaluation Insurance Information Recert Due Date 06/20/24 Insurance Name Medicare B Medical Diagnosis massive complex rc tear: Massive right shoulder rotator cuff tear - upper subscapularis, supraspinatus, and infraspinatus DOS 02/09/24- sp 6 weeks post op Referring MD Jane Maldonado Subjective Subjective Nasreen comes into clinic 6 weeks post massive RCR with biceps tenotomy and subacromial decompression. States overall she is doing well, does have moments of pain but feels like it has progressively improved. Initially was dealing with more pain in the shoulder after surgery. Was sleeping in her recliner at home but this week switched to her bed which is going well aside from trying to sleep on the R shoulder. Does not wear her sling at home but does when she leaves her home. Lives with her son and daughter in law who help with her ADLS. Her goal is to return her daily activities along with donning make up and fixing hair without help. Pain Comments 0-7/10 Current Work Status Retired Precautions Treatment Precautions/Contraindications tka x 2, R MARIBEL, heart condition RSV back in winter so on oxygen 2 L , osteoporosis,OA, allergic to aspirin due to ulcers -Wean out of the abduction sling over the next 1-2 weeks. (03/28/24-04/04/24) -Continue passive range of motion exercises. -May advance to active assist range of motion in 2 weeks and then to active range of motion exercises in 4 weeks.() (04/18/24) Objective Other/Pertinent Objective SHOULDER PROM increased joint noise Flexion: R 70 Abduction: R 75 Internal Rotation: R 45 degrees before guarding in neutral positions External Rotation: R 35 degrees in 10-15 degrees abduction NECK/SHOULDER MMT: deferred due to surgical precautions Functional Test Performed & Score SPADI (03/22/24): 102 / 130 = 78.5 % Assessment Assessment/Impression POST-OP Patient presents with signs and symptoms consistent with diagnosis of R massive RCR with biceps tenotomy and subacromial decompression , s /p 6 week post operative. Rehab potential is good. Aguilar impairments include: decreased ROM and strength of the extremity, poor GH stability, pain/limitations with functional activities such as lifting, reaching, carrying, ADLS, sleeping. Skilled PT is required to address these aguilar impairments and to provide and progress with an appropriate home exercise program. Plan of Care Rehabilitation Potential Good Physical Therapy Goals GOALS Pt will be independent with HEP within 20-24 weeks to allow for independence and continued improvement past formal therapy Patient will report or demonstrate the ability to have 4+/5 strength in all shoulder and elbow planes for household and recreational activity within 20-24 weeks. Pt will score 5-10% on SPADI objective measure within 20-24 weeks to demonstrate functional improvements in daily living, pain symptoms, and functional independence . 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, hygiene, work within 20-24 weeks Coordination/Communication With Referral Source Treatment Plan/Direct Interventions Joint Mobilization,Manual Therapy,Neuromuscular Re-ed, Self-Care/Home Management, Therapeutic Activities, Therapeutic Exercises Frequency/Duration 1-2 visits a week for 20-24 weeks Patient Will Be Discharged From Therapy Independent w/HEP, Independently Progressing Evaluation Billing Untimed Code Treatment Minutes 20 Complexity Moderate Certification Information Initial Certification Date 03/22/24 Ending Certification Date 06/20/24 Provider Signature Required Yes Provider Signature Shows Agreement With POC & Medical Necessity Physician NPI Number Write NPI# Here Physician Comment/Change : Physician Signature & Date Requested Please Sign/Date Here
== END 2024-09-09 15:57 | disposition home or self-care (01) ==
PROVIDERS: Visit Provider Physician Assistant Surgical
DX: S46.011D Strain of muscle(s) and tendon(s) of the rotator cuff of right shoulder, subsequent encounter (principal); M62.81 Muscle weakness (generalized); M25.511 Pain in right shoulder; Z51.89 Encounter for other specified aftercare
CPT/HCPCS: 97110; 97140; 97162

== ENCOUNTER 2024-07-08 13:12 | Emergency (ER) | payer MEDICARE, BC, SELFPAY ==
[2024-07-08 13:16] VITALS: BP 129/76; PULSE 94; RESP 18; TEMP 36.3; O2SAT 89; BMI 26.6
--- NOTE | 2024-07-08 13:34 | ED.GENADULT ---
HPI - General Adult General Chief complaint: Shoulder Injury/Pain Stated complaint: post op complications Shoulder Time Seen by Provider: 07/08/24 13:22 History of Present Illness HPI narrative: Had right shoulder repair 2 weeks ago in [place]. states I felt a pop in right shoulder x 3 days. c/o increased pain 73-year-old woman presenting to the emergency department please concern of right shoulder pain. Three days ago thinks she might have reach back little too much and felt a pop and since then has had an increase in pain. She is 2 weeks status post reverse shoulder arthrodesis. Apparently surgery went well. She did have physical therapy last week; the 1st visit. She is not had particular swelling or erythema. Just hurts in there more than usual and she is worried she might have damaged it somehow. She has been icing it regularly and taking her usual pain medications. She does have an opiate available but does not take it more than once a day. Anticoagulated so does not take NSAIDs otherwise. She is right-handed and tries to be active I suspect. Limited by oxygen concentrator/RSV related lung injury. Related Data Home Medications ?Medication ?Instructions ?Recorded ?Confirmed furosemide 40 mg tablet 40 mg PO DAILY 02/28/23 05/30/24 levothyroxine 112 mcg tablet 112 mcg PO DAILY 02/28/23 05/30/24 liothyronine 5 mcg tablet 5 mcg PO BID 02/28/23 05/30/24 metoprolol succinate 25 mg 25 mg PO DAILY 02/28/23 05/30/24 tablet,extended release 24 hr oxycodone-acetaminophen 10 mg-325 1 tab PO Q4-6H PRN pain 02/28/23 05/30/24 mg tablet sertraline 100 mg tablet 200 mg PO DAILY 02/28/23 05/30/24 trazodone 50 mg tablet 100 mg PO QPM 02/28/23 05/30/24 umeclidinium 62.5 mcg-vilanterol 1 ea inhalation DAILY 02/28/23 05/30/24 25 mcg/actuation powdr for inhalation (Anoro Ellipta) bupropion HCl 150 mg 24 hr tablet, 150 mg PO QAM 09/29/23 05/30/24 extended release cetirizine 10 mg tablet 10 mg PO DAILY PRN 03/20/24 05/30/24 tobramycin 0.3 % eye drops drp ophthalmic (eye) 03/20/24 05/30/24 Previous Rx's ?Medication ?Instructions ?Recorded albuterol sulfate 90 mcg/actuation 2 puff inhalation Q6-8H PRN 07/04/22 aerosol inhaler bronchospasm #18 ea apixaban 5 mg tablet (Eliquis) 5 mg PO BID #70 tabs 10/02/23 Allergies Allergy/AdvReac Type Severity Reaction Status Date / Time aspirin AdvReac Verified 05/30/24 13:23 Review of Systems Status of ROS: Reports: 6 or more systems reviewed and unremarkable except as noted in History and below [facility] Medical History RSV (respiratory syncytial virus pneumonia) ?J12.1 - Respiratory syncytial virus pneumonia (ICD-10) RSV bronchitis ?J20.5 - Acute bronchitis due to respiratory syncytial virus (ICD-10) Pulmonary embolism ?I26.99 - Other pulmonary embolism without acute cor pulmonale (ICD-10) Graves disease ?E05.00 - Thyrotoxicosis with diffuse goiter without thyrotoxic crisis or storm (ICD-10) GERD (gastroesophageal reflux disease) ?K21.9 - Gastro-esophageal reflux disease without esophagitis (ICD-10) Anxiety ?F41.9 - Anxiety disorder, unspecified (ICD-10) Depression ?F32.A - Depression, unspecified (ICD-10) Stage 3 chronic kidney disease ?N18.30 - Chronic kidney disease, stage 3 unspecified (ICD-10) Hyperlipidemia ?E78.5 - Hyperlipidemia, unspecified (ICD-10) Chronic back pain ?M54.9 - Dorsalgia, unspecified (ICD-10) ?G89.29 - Other chronic pain (ICD-10) Peptic ulcer disease ?K27.9 - Peptic ulcer, site unspecified, unspecified as acute or chronic, without hemorrhage or perforation (ICD-10) Meningioma ?D32.9 - Benign neoplasm of meninges, unspecified (ICD-10) Hypothyroidism ?E03.9 - Hypothyroidism, unspecified (ICD-10) Hypertension ?I10 - Essential (primary) hypertension (ICD-10) Acute and chronic respiratory failure with hypoxia ?J96.21 - Acute and chronic respiratory failure with hypoxia (ICD-10) Congestive heart failure ?I50.9 - Heart failure, unspecified (ICD-10) Bronchospasm ?J98.01 - Acute bronchospasm (ICD-10) Surgical History History of arthroscopy of right shoulder (02/09/24) ?Z98.890 - Other specified postprocedural states (ICD-10) History of Gihslaine-en-Y gastric bypass ?Z98.84 - Bariatric surgery status (ICD-10) History of hip replacement ?Z96.649 - Presence of unspecified artificial hip joint (ICD-10) H/O abdominal hysterectomy ?Z90.710 - Acquired absence of both cervix and uterus (ICD-10) History of partial gastrectomy ?Z90.3 - Acquired absence of stomach [part of] (ICD-10) Status post coil embolization of cerebral aneurysm ?Z98.890 - Other specified postprocedural states (ICD-10) Total knee replacement status ?Z96.659 - Presence of unspecified artificial knee joint (ICD-10) Status post appendectomy ?Z90.49 - Acquired absence of other specified parts of digestive tract (ICD-10) Status post cholecystectomy ?Z90.49 - Acquired absence of other specified parts of digestive tract (ICD-10) Family History Brother Alcohol dependence Father Colon cancer Other Breast cancer Social History Narrative: She lives in [place]. Her son Cm lives with her. He is healthcare power of litigation attorney. She gets healthcare through [facility], Dr. Jannie Giordano. Quit smoking in 2008. Rarely drinks alcohol. Code status is DNR DNI What is your current living situation?: I presently have a place to live Problems where you live: no known problems Problems where you live details: NA In the past 12 months, utilities in danger of being shut off: no In past 12 months, lack of transportation kept you from medical appts, meetings, work, or getting things needed for daily living: no In the past 12 mos, have been you worried that your food would run out before you had money to buy more?: never true In the past 12 mos, the food you bought just didn't last and you didn't have money to buy more?: never true Highest level of school completed/degree received: high school graduate Smoking Status: Former smoker What tobacco products do you use: cigarettes Years smoked: 20 Smoking quit date/years: >15 years ago Do you use any of these nicotine containing products: None Second hand tobacco smoke exposure: No How often do you have a drink containing alcohol: monthly or less Alcohol type: wine How often do you have six or more drinks on one occasion: Never AUDIT-C Alcohol total score: 1 Non-prescribed substance use: denies use Caffeine: No How often does anyone, including family, friends and others, physically hurt you: never How often does anyone, including family, friends and others, insult or talk down to you: never How often does anyone, including family, friends and others, threaten you with harm: never How often does anyone, including family, friends and others, scream or curse at you: never service: No Exam Narrative: Exam Narrative: Very pleasant. NAD though lightly labored breathing with nasal cannula in place. Skin is warm and dry. Examination of the right shoulder in particular shows Steri-Strips still in place. I do not see any periwound erythema or elsewhere. She is little tender to palpation in the anterior aspect of the humeral head area. Pain is clearly more elicited with internal rotation of the shoulder. Otherwise appears to be intact. Has to assist for abduction of the shoulder. Has no scapular or clavicular area pain. No pain over the AC joint. Const: Vital Signs, click to edit/add: Vital Signs - 24 hr 07/08/24 13:16 Temperature 97.4 F L Pulse Rate [Right Pulse Oximeter] 94 Respiratory Rate 18 Blood Pressure [Ri ght Upper Arm] 129/76 Pulse Oximetry 89 Oxygen Delivery Me thod Nasal Cannula Documenting provider has reviewed patient's vital signs: yes Course Vital Signs Vital signs: Initial Vital Signs Temperature 97.4 F L 07/08/24 13:16 Temperature Source Temporal Artery Scan 07/08/24 13:16 Pulse Rate 94 07/08/24 13:16 Respiratory Rate 18 07/08/24 13:16 Blood Pressure 129/76 07/08/24 13:16 Blood Pressure Mean 93 07/08/24 13:16 Blood Pressure Position Sitting 07/08/24 13:16 Pulse Oximetry 89 07/08/24 13:16 Oxygen Delivery Method Nasal Cannula 07/08/24 13:16 Vital Signs Temperature 97.4 F L 07/08/24 13:16 Pulse Rate 94 07/08/24 13:16 Respiratory Rate 18 07/08/24 13:16 Blood Pressure 129/76 07/08/24 13:16 Pulse Oximetry 89 07/08/24 13:16 Oxygen Delivery Method Nasal Cannula 07/08/24 13:16 Temperature 97.4 F L 07/08/24 13:16 Pulse Rate 94 07/08/24 13:16 Respiratory Rate 18 07/08/24 13:16 Blood Pressure 129/76 07/08/24 13:16 Pulse Oximetry 89 07/08/24 13:16 Oxygen Delivery Method Nasal Cannula 07/08/24 13:16 Medical Decision Making MDM Narrative Medical decision making narrative: I suspect that she has inflamed the recently postop joint. Can certainly check for hardware stability. Does appear to be intact/in place/in socket. Will double check with some x-rays. I suppose could be a hematoma secondarily and is anticoagulated but I do not see much in the way of swelling nor just basic manipulation of the joint outside of extremes is not unusual tender. I do not think this is a joint infection. Did do an x-ray of the right shoulder. Reviewed by me hardware looks to be in place and joint is in place. This was reviewed by Radiology and are in agreement. Did discuss these findings with Ms. Fiore. She is relieved. See patient discharge plan for further discussion Medical Records Medical records reviewed: Yes I reviewed the patient's medical records Discharge Plan Discharge Clinical Impression: Post-op pain Patient Disposition: Home w/ Parent or Adult Condition: Stable Additional Instructions: I think doing your icing couple of times maybe 2-3 times daily over the next few days is probably still good. You do have pain medication. I am thinking you just irritated an already irritated/puffy shoulder. Everything seems to be intact otherwise. I would wear your arm sling regularly over the next few days as well trying to give it a chance to rest. Do have physical therapy check it out for you tomorrow. If not better in a week, would follow up at that point. Take this disc of images with you. Prescriptions: No Action cetirizine 10 mg tablet 10 mg PO DAILY PRN tobramycin 0.3 % drops ophthalmic (eye) furosemide 40 mg tablet 40 mg PO DAILY trazodone 50 mg tablet 100 mg PO QPM sertraline 100 mg tablet 200 mg PO DAILY liothyronine 5 mcg tablet 5 mcg PO BID oxycodone-acetaminophen 10-325 mg tablet 1 tab PO Q4-6H PRN (Reason: pain) metoprolol succinate 25 mg tablet extended release 24 hr 25 mg PO DAILY levothyroxine 112 mcg tablet 112 mcg PO DAILY Anoro Ellipta 62.5-25 mcg/actuation blister with device 1 ea INHALATION DAILY bupropion HCl 150 mg tablet extended release 24 hr 150 mg PO QAM Eliquis 5 mg Tablet 5 mg PO BID Qty: 70 0RF Rx Instructions: 2 tabs (10mg) BID for 3 more days. On October 06, start 1tab (5mg) BID albuterol sulfate 90 mcg/actuation HFA aerosol inhaler 2 puff inhalation Q6-8H PRN (Reason: bronchospasm) Qty: 18 0RF Follow Up/Referrals: Provider,Not a Local [Primary Care Provider] - Stand Alone Forms: [employer] Info Instructions
--- NOTE | 2024-07-08 13:41 | CRLHL7_ITS ---
For Patients: As a result of the Cures Act, medical imaging exams and procedure reports are released immediately into your electronic medical record. You may view this report before your referring provider. If you have questions, please contact your health care provider. Indication: Pain, status post shoulder arthroplasty Technique: Right shoulder 3 views. Comparison: None. Findings/impression: No acute fracture or dislocation. Post reverse shoulder arthroplasty in the right shoulder, with intact hardware. Focus of gas near the acromion. If the shoulder arthroplasty was recent, this is likely related to shoulder arthroplasty, otherwise is indeterminate and can be seen with soft tissue infection. Moderate acromioclavicular joint osteoarthritis. Dictated by Jaki Tillman MD @ 07/08/2024 2:13:53 PM (Electronically Signed)
--- OUTSIDE RECORDS SUMMARY | 2024-07-08 13:51 | XMS_ITS | Clinical Summary ---
Author Organization [facility] Address [place], [place] [address] Care Team Providers Care Programming Engineer Name Role Phone Asher Dillon MD Unavailable [...] by mouth once daily. 0 04/12/2018 Active liothyronine (CYTOMEL) 5 mcg tablet Take 10 mcg by mouth before breakfast. Active nitroglycerin (NITROSTAT) 0.[address] 0.4 mg under the tongue every 5 minutes if needed for Chest Pain. May take second pill 5 minutes later. If symptoms not relieved, call 911. 1 02/01/2019 Active albuterol HFA 90 mcg/actuation inhaler Inhale 2 Puffs by mouth every 4 hours if needed for Shortness Of Breath or Wheezing. Active buPROPion (WELLBUTRIN XL) 150 mg Extended-Release tablet Take 150 mg by mouth once daily. 02/25/2020 Active metoprolol succinate (TOPROL XL) 25 mg Sustained-Release tablet Take 25 mg by mouth once daily. 02/13/2020 Active denosumab (PROLIA) 60 mg/mL injection Inject 60 mg subcutaneous EVERY 6 MONTHS. Active traZODone (DESYREL) 50 mg tablet Take 100 mg by mouth at bedtime. 02/12/2020 Active cholecalciferol, Vitamin D3, (VITAMIN D-3) 2,000 unit tablet Take 2,000 Units by mouth once daily. Active CALCIUM ORAL Take 1 Tablet by mouth once daily. Active furosemide (LASIX) 40 mg tablet Take 40 mg by mouth once daily. 08/15/2020 Active sertraline (ZOLOFT) 100 mg tablet Take 1 tablet by mouth once daily. 10/16/2020 Active albuterol 0.083% (2.5 mg/3 mL) neb solution Inhale 2.5 mg via a nebulizer every 4 hours if needed for Shortness Of Breath or Wheezing. Active apixaban (Eliquis) 5 mg tablet Take 5 mg by mouth two times daily. Active levothyroxine (SYNTHROID) 112 mcg tablet Take 112 mcg by mouth before breakfast. Active tiZANidine (ZANAFLEX) 2 mg tablet Take 2 mg by mouth every 8 hours if needed for Muscle Spasm. Active furosemide (LASIX) 40 mg tablet Take 40 mg by mouth once daily if needed (edema). Active traMADoL (ULTRAM) 50 mg tabletIndications :S/P reverse total shoulder arthroplasty, right Take 1 Tablet (50 mg) by mouth four times daily. 20 Tablet 06/23/2024 Active HYDROmorphone (DILAUDID) 2 mg tabletIndications :S/P reverse total shoulder arthroplasty, right Take 1 Tablet (2 mg) by mouth every 4 hours if needed for Pain. 18 Tablet 06/23/2024 Active acetaminophen (TYLENOL EXTRA STRGTH) 500 mg tabletIndications :S/P reverse total shoulder arthroplasty, right Take 2 Tablets (1,000 mg) by mouth three times daily. Max acetaminophen dose: 4000mg in 24 hrs. 06/24/2024 Active loratadine (CLARITIN) 10 mg tablet Take 10 mg by mouth once daily if needed for Allergy Symptoms. 4 Discontinue d(*Patient states no longer taking) KLOR-CON M20 20 mEq Extended-Release tablet Take 1 tablet by mouth. Takes as needed when using Lasix 4 09/22/2018 4 Discontinue d(*Patient states no longer taking) levothyroxine (SYNTHROID) 137 mcg tablet Take 137 mcg by mouth before breakfast. 01/14/2020 4 Discontinue d(*Medicati on adjustment) loperamide (IMODIUM A-D) 2 mg tablet Take 2-4 mg by mouth each time if needed for Diarrhea. Take 4mg by mouth with 1st loose stool, then 2mg with each subsequent loose stool. Max 16 mg in 24 hrs 4 Discontinue d(*Patient states no longer taking) multivitamin/iron /folic acid (CENTRUM ORAL) Take 1 tablet by mouth once daily. 4 Discontinue d(*Patient states no longer taking) oxyCODONE-acetami nophen, 5-325 mg, (PERCOCET) 5-325 mg per tabletIndications :Status post right hip replacement Take 1-2 tablets by mouth every 4 hours if needed for Pain Max acetaminophen dose: 4000mg in 24 hrs. 30 tablet 03/25/2020 4 Discontinue d(*Medicati on adjustment) amitriptyline (ELAVIL) 25 mg tablet Take 25 mg by mouth at bedtime. 4 Discontinue d(*Patient states no longer taking) melatonin 5 mg chew Take 5 mg by mouth at bedtime. 4 Discontinue d(*Patient states no longer taking) prednisoLONE acetate 1% ophthalmic (ECONOPRED PLUS, PRED FORTE, OMNIPRED) suspension Place 1 Drop into left eye 4 times daily. Start after surgery 4 Discontinue d(*Patient states no longer taking) fluconazole (DIFLUCAN) 100 mg tablet Take 100 mg by mouth once daily. 10/27/2019 4 Discontinue d(*Patient states no longer taking) neomycin-polymyxi n-dexamethasone (MAXITROL) 3.5mg/mL-10,000 unit/mL-0.1 % ophthalmic suspension INSTILL 1 DROP INTO LEFT EYE FOUR TIMES A DAY DIRECTED START AFTER SURGERY. USE UNTIL GONE. 05/05/2020 4 Discontinue d(*Patient states no longer taking) moxifloxacin (VIGAMOX) 0.5 % ophthalmic solution PLEASE SEE ATTACHED FOR DETAILED DIRECTIONS 10/07/2020 4 Discontinue d(*Patient states no longer taking) brimonidine (ALPHAGAN) 0.2 % ophthalmic solution Place 1 Drop into left eye 3 times daily. 10/12/2020 4 Discontinue d(*Patient states no longer taking) cetirizine (ZYRTEC) 10 mg tablet Take 10 mg by mouth once daily if needed for Allergy Symptoms. 4 Discontinue d(*Patient states no longer taking) oxyCODONE-acetami nophen, 10-325 mg, (PERCOCET) 10-325 mg per tablet Take 1 Tablet by mouth every 4 hours if needed for Pain. 4 Discontinue d(*IP Discontinue d) Active Problems Problem Noted Date Diagnosed Date Chronic respiratory failure with hypoxia 024 Generalized anxiety disorder 06/23/2024 Advanced care planning/counseling discussion Overview (06/23/2024): She chooses to be DNR and DNI History of Graves' disease 06/22/2024 Chronic anticoagulation 06/22/2024 Chronic right-sided heart failure 06/21/2024 H/O Pulmonary embolism 06/21/2024 S/P reverse total shoulder arthroplasty, right 0 06/14/2024 Status post right hip replacement revision 03/12 Status post left knee replacement 10/10/2018 Primary osteoarthritis of left knee 10/08/2018 Primary osteoarthritis of right knee 05/08/2018 Cerebral arterial aneurysm 03/31/2015 Controlled substance agreement signed 02/16/2015 Overview (05/18/2015): Chronic low back pain with DDD Of L5-S1 and compression fracture at L3.Provider: Dominga Patel MD Pharmacy: [facility]. Date Signed: 02/16/2015 Expiration Date: 02/17/2016 Diagnosis: Chronic low back pain with compression Fx at L3. Medication(s): Percocet Frequency of Visits: every other months. Nausea 06/07/2008 Hypothyroid Meningioma Overview (06/07/2008): left occipital PUD (peptic ulcer disease) Overview (06/07/2008): remote history COPD (chronic obstructive pulmonary disease) GERD (gastroesophageal reflux disease) HTN (hypertension) Hypothyroidism Depression Hyperlipidemia Encounters Date Type Department Care Team Description 06/25/2024 Telephone [facility] [address] [place] [address] Josette Carmen RN Hospital F/U 06/21/2024 7:47 AM CDT Anesthesia Event [facility] [address] [place] [address] Saravanan Ramsay, Kayode Marshall CRNA 06/21/2024 7:30 AM CDT - 06/21/2024 10:00 AM CDT Surgery [facility] [address] [place] [address] Bar Galeas MD (TSA)RIGHT REVERSE SHOULDER TOTAL ARTHROPLASTY WITH HARDWARE REMOVAL 06/21/2024 5:07 AM CDT - 06/24/2024 4:15 PM CDT Hospital Encounter [facility] [address] [place] [address] Bar Galeas MD S/P reverse total shoulder arthroplasty, right (Primary Dx) Discharge Disposition: Home Self Care 06/21/2024 Travel from Last 3 Months Immunizations Name Administration Dates Next Due COVID-19 vaccine ([facility] 30mcg/0.3mL) 12YO+ ELIJAH-SUCROSE PF, MDV 01/14/2022 COVID-19 vaccine ([facility] 30mcg/0.3mL) PF, MDV 07/22/2021,12/22/2020,12/01/2020 Influenza Virus, Unspecified 06/02/2014 Influenza, High-dose Inactivated 019,07/16/2018,06/13/2017,2015,07/17/2015 Influenza, High-dose Quadriv alent Inactivated 07/29/2023,07/07/2022,07/22/2021,2019 Influenza, IIV3 (Age >=3 years) 06/02/2014,07/01 Pneumococcal Poly,23-Valent (Pneumovax) 09/14/2014 Pneumococcal conj 13-Valent (Prevnar 13) 01/20/2016 Tdap 01/20/2016 Zoster (Zostavax-ZVL, live) 02/19/2013 Family [...] Cigarettes Q uit: 2009 Smokeless Tobacco: Never Tobacco Cessation:Counseling Given: Not Answered Alcohol Use Standard Drinks/Week Comments Yes 0 (1 standard drink = 0.6 oz pur e alcohol) Occasional rarely Social Connections Answer Date Recorded Frequency of Communication with Friends and Fami ly 0 06/21/2024 Financial Resource Strain Answer Date R ecorded Difficulty of Paying Living Expenses 3 06/21/2024 Difficulty of Paying Living Expenses Not on file 06/21/2024 Food Insecurity Answer Date Recorded Worried About Running Out of Food in the Last Ye ar 1 06/21/2024 Transportation Needs Answer Date Record ed Lack of Transportation (Medical) 1 06/21/2024 Housing Stability Answer Date Recorded Unable to Pay for Housing in the Last Year 1 06/21/2024 Sex and Gender Information Value Date Recorded Sex Assigned at Not on file Gender Identity Not on file Sexual Orientation Not on file Obstetrics History Last Filed Vital Signs Vital Sign Reading Time Taken Comments Blood Pressure 110/60 06/24/2024 8:45 AM CDT Pulse 94 06/24/2024 8:45 AM CDT Temperature 37.3 ??C (99.2 ??F) 06/24/2024 8:45 AM CD T Respiratory Rate 18 06/24/2024 8:45 AM CDT Oxygen Saturation 92% 06/24/2024 8:45 AM CDT Inhaled Oxygen Concentration - - Weight 78 kg (172 lb) 06/21/2024 5:00 AM CDT Height 167.6 cm (5' 5.98) 06/21/2024 5:00 AM CD T Body Mass Index 27.77 06/21/2024 5:00 AM CDT Plan of Treatment Health Maintenance Due Date Last Done Comments Depression screening for age 12+ 1960 BMI (ht and wt on same day) for age 18+ 1966 Hepatitis C screening for ag e 18-79 1966 Lipids for age 45-75 1993 Zoster (shingles) series for age 50+ (2 of 3) 04/16/2013 02/19/2013 Medicare Wellness for age 65+ 2013 RSV vaccine for adults or (1 - 1-dose 75+ series) 2023 COVID-19 vaccine series ( season) 2024 07/29/2023, 07/07/2022, 01/14/2022, Additional history exists Influenza for age 65+ 06/02/2024 07/29/2023 , 07/07/2022, 07/22/2021, Additional history exists Colonoscopy through age 75 09/13/202409/13 (Completed outside of [facility]) Tetanus booster 01/19/2026 01/20/2016 DEXA/DXA scan for age 65+ Completed 2014, 08/29/2012 (Completed outside of [facility]) Pneumococcal series for age 65+ Completed , 09/14/2014 Tdap Completed 01/20/2016 Medical Devices Implanted Type Area Fpga Design Engineer Device Identifier Shelf Expiration Date Model / Serial / Lot Simplex P Bone Cement Implanted:Qty: 1 on 05/14/2018 by Oscar Mina MD at [facility] Right: Knee [employer] 05/01/2020 / / [id number] Simplex P Bone Cement Implanted:Qty: 1 on 05/14/2018 by Oscar Mina MD at [facility] Right: Knee [employer] 11/30/2019 / / [id number] Truliant Femoral Component Implanted:Qty: 1 on 05/14/2018 by Oscar Mina MD at [facility] Right: Knee [employer] 03/27/2028 / / [id number] Truliant Fit Tibial Tray Implanted:Qty: 1 on 05/14/2018 by Oscar Mina MD at [facility] Right: Knee [employer] 12/06/2027 / / [id number] Truliant Psc Tibial Insert Implanted:Qty: 1 on 05/14/2018 by Oscar Mina MD at [facility] Right: Knee [employer] 01/24/2026 / / [id number] Optetrak 3 Peg Patella Implanted:Qty: 1 on 05/14/2018 by Oscar Mina MD at [facility] Right: Knee [employer] 03/29/2023 / / [id number] Optetrak Logic Stem Ext Implanted:Qty: 1 on 05/14/2018 by Oscar Mina MD at [facility] Right: Knee [employer] 07/19/2021 / / [id number] Optetrak Tibial Stem Ext Screw Implanted:Qty: 1 on 05/14/2018 by Oscar Mina MD at [facility] Right: Knee [employer] 02/18/2023 / / [id number] Bone Cement Implanted:Qty: 1 on 10/08/2018 by Oscar Mina MD at [facility] Left: Knee [employer] 05/01/2020 / / [id number] Femoral Component Implanted:Qty: 1 on 10/08/2018 by Oscar Mina MD at [facility] Left: Knee [employer] 03/13/2028 / / [id number] Tibial Tray Implanted:Qty: 1 on 10/08/2018 by Oscar Mina MD at [facility] Left: Knee [employer] 03/27/2028 / / [id number] Stem Extension Implanted:Qty: 1 on 10/08/2018 by Oscar Mina MD at [facility] Left: Knee [employer] 11/12/2022 / / [id number] Stem Extension Screw Implanted:Qty: 1 on 10/08/2018 by Oscar Mina MD at [facility] Left: Knee [employer] 12/12/2022 / / [id number] Tibial Insert Implanted:Qty: 1 on 10/08/2018 by Oscar Mina MD at [facility] Left: Knee [employer] 10/04/2025 / / [id number] Patella Implanted:Qty: 1 on 10/08/2018 by Oscar Mina MD at [facility] Left: Knee [employer] 06/10/2023 / / [id number] Bone Cement Implanted:Qty: 1 on 10/08/2018 by Oscar Mina MD at [facility] Left: Knee [employer] 11/30/2019 / / [id number] Constrained Liner Implanted:Qty: 1 on 03/24/2020 by Oscar Mina MD at [facility] Right: Hip [employer] 11/15/2023 / / [id number] Constrained Modular Head Implanted:Qty: 1 on 03/24/2020 by Oscar Mina MD at [facility] Right: Hip [employer] 03/21/2029 / / [id number] Tornier Perform Reversed Glenoid Standard Baseplate Cementless Implanted:Qty: 1 on 06/21/2024 by Bar Galeas MD at [facility] Right: Shoulder [employer] [id number] 04/10/2029 [id number] / [id number] / Peripheral Screw Implanted:Qty: 3 on 06/21/2024 by Bar Galeas MD at [facility] Right: Shoulder [employer] [id number] / / Tornier Perform Reversed Glenoid Standard Glenosphere Implanted:Qty: 1 on 06/21/2024 by Bar Galeas MD at [facility] Right: Shoulder [employer] [id number] 02/28/2029 [id number] / [id number] / Tornier Flex Shoulder System Standard Ptc Humeral Stem Implanted:Qty: 1 on 06/21/2024 by Bar Galeas MD at [facility] Right: Shoulder [employer] [id number] 11/08/2028 [id number] / [id number] / Tornier Flex Shoulder System Reversed Tray Implanted:Qty: 1 on 06/21/2024 by Bar Galeas MD at [facility] Right: Shoulder [employer] [id number] 12/03/2028 TPM537 / [id number] / Tornier Flex Shoulder System Reversed Insert Implanted:Qty: 1 on 06/21/2024 by Bar Galeas MD at [facility] Right: Shoulder [employer] [id number] 03/20/2028 [id number] / [id number] / Peripheral Screw Implanted:Qty: 1 on 06/21/2024 by Bar Galeas MD at [facility] Right: Shoulder [id number] / / Central Screw Implanted:Qty: 1 on 06/21/2024 by Bar Galeas MD at [facility] Right: Shoulder [employer] [id number] / / Procedures Procedure Name Priority Date/Time Associated Diagnosis Comments CLOSTRIDIOIDES DIFFICILE TOXIN PCR Today 06/23/2024 6:25 PM CDT HEMOGLOBIN Early AM 06/22/2024 6:33 AM CDT XR SHOULDER 1 VIEW RIGHT PORTABLE KRISTIN 06/21/2024 11:46 AM CDT PERIPHERAL BLOCK Routine 06/21/2024 8:26 AM CDT SUPRAGLOTTIC-LMA Routine 06/21/2024 8:23 AM CDT ARTHROPLASTY REVERSE SHOULDER Elective 06/21/2024 7:47 AM CDT Secondary localized osteoarthrosis of shoulder region, right, Traumatic tear of right rotator cuff Case Notes INPATIENT ARRIVAL TIME 0500TORNIER, BLOOD THINNER, Special Needs H&P 06/17/2024 DR GRANADOS - BERTO SCAN-CARDIAC STRIP 06/21/2024 7: 30 AM CDT OR IMAGE CAPTURE KRISTIN 06/21/2024 6:39 AM CDT MRSA DNA PCR [facility] ONLY Today 06/21/2024 6:22 AM CDT CBC WITH AUTO DIFFERENTIAL Preop 06/21/2024 6:12 AM CDT CBC WITH AUTO DIFFERENTIAL Preop 06/21/2024 6:12 AM CDT SCAN CORRESP-DIAGNOSTICS 06/20/2024 1:41 PM CDT SCAN CORRESP-LABORATORY RESULTS 06/19/2024 1:26 PM CDT SCAN CORRESP-DIAGNOSTICS 06/19/2024 1:25 PM CDT XR DXA BONE DENSITY 2 SITES AXIAL Routine 04/23/2015 8:30 AM CDT Compression fracture Osteoporosis from Last 3 Months or Most Recently Relevant to Health Maintenance Results * CLOSTRIDIOIDES DIFFICILE TOXIN PCR (06/23/2024 6:25 PM CDT) TOXIGENIC CLOSTRIDIUM DIFFICILE PCR AFF Negative Negative 06/23/2024 7:38 PM CDT [facility] PRESUMPTIVE NAP1 STRAIN AFF Negative Negative 06/23/2024 7:38 PM CDT [facility] Stool STOOL SPECIMEN / Unknown Non-Blood / Unknown 06/23/2024 6:25 PM CDT 06/23/2024 6:32 PM CDT [facility] - 06/23/2024 7:38 PM CDT The NAP1 (027 or BI) strain is a hypervirulent strain. Detection may be useful for epidemiological purposes. Rubén Tineo MD MICROBIOLOGY [facility] [address] [place] [address], * Hemoglobin (06/22/2024 6:33 AM CDT) HEMOGLOBIN 12.5 11.9 - 15.6 g/dL 06/22/2024 7:04 AM CDT [facility] MCV 97 80 - 100 fL 06/22/2024 7:04 AM CDT [facility] Blood BLOOD SPECIMEN / Unknown Venipuncture / Unknown 06/22/2024 6:33 AM CDT 06/22/2024 6:45 AM CDT Bar Galeas MD HEMATOLOGY [facility] [address] [place] [address], * XR SHOULDER 1 VIEW RIGHT PORTABLE (06/21/2024 11:46 AM CDT) Anatomical Region Laterality Modality SHOULDERS, SHOULDER R Digital Ra diography 06/21/2024 1:04 PM CDT Narrative 06/21/2024 1:04 PM CDT For Patients: ??As a result of the Cures Act, medical imaging exams and procedure reports are released immediately into your electronic medical record. ??You may view this report before your referring provider. ??If you have questions, please contact your health care provider. Indication: Post TSA, prev 06-13-24 Technique: One view of the right shoulder Comparison: None Findings/Impression: Postsurgical changes of right reverse shoulder arthroplasty without evidence immediate hardware related complication. Expected postsurgical gas and edema in the operative bed with overlying skin nathaly. Dictated by Lorenzo Vega MD @ 06/21/2024 1:04:13 PM (Electronically Signed) Procedure Note Lorenzo Vega MD - 06/21/2024 For Patients: As a result of the Cures Act, medical imagingexams and procedure reports are released immediately into your electronicmedical record. You may view this report before your referring provider.If you have questions, please contact your health care provider. Indication: Post TSA, prev 06-13-24 Technique: One view of the right shoulder Comparison: None Findings/Impression: Postsurgical changes of right reverse shoulder arthroplasty withoutevidence immediate hardware related complication. Expected postsurgical gas and edema in the operative bed with overlyingskin nathaly. Dictated by Lorenzo Vega MD @ 06/21/2024 1:04:13 PM (Electronically Signed) Bar Galeas MD GENERAL IMAGING * PERIPHERAL BLOCK CATHETER (06/21/2024 8:26 AM CDT) Narrative Saravanan Ramsay CRNA - 06/21/2024 8:26 AM CDT Saravanan Ramsay CRNA ? 06/21/2024 ??8:27 AM Peripheral Block Patient location during procedure: pre-op Start time: 06/21/2024 7:16 AM End time: 06/21/2024 7:37 AM Reason for block: at surgeon's request and post-op pain PreProcedure Checklist Completed: patient identified, site marked, risks and benefits discussed, surgical consent, timeout performed and hand hygiene performed. Peripheral Block Patient position: lateral Prep: sterile drape and chloraprep Patient monitoring: ECG, blood pressure and continuous pulse oximetry Neuro Status: alert, mild sedation and Meaningful contact maintained throughout block. Block type: interscalene and upper extremity , regional analgesia techniques Upper extremity block type: interscalene, regional analgesia techniques Laterality: right Injection technique: continuous Skin Infiltration: lidocaine 1% Injection assessment: incremental Needle Needle type: Tuohy ?? Needle Details: echogenic and stimulating Needle gauge: 18 G Needle length: 4 in Unilateral needle localization (ultrasound): live ultrasound guidance, needle and nerve visualized, no pathologic findings, local anesthetic visualized surrounding nerve, nerve appears normal and permanent images obtained. Needle Localization (other): anatomical landmarks and nerve stimulator (Nerve stimulator used to confirm location of nerve identified with ultrasound. Loss of twitch at 0.5mA.). Catheter Catheter used:yes Catheter type: open tip Catheter size: 20 G Aspiration of Catheter: negative Catheter at skin depth: 5 cm Secured with Dermabond Secured with tegaderm Events: no complications. Additional Notes ISNB + superficial cervical plexus block (plane block used to anesthetize the transverse cervical nerve and the supraclavicular nerve). The fascial plane where intercostobrachial and medial brachial cutaneous nerves traverse was also identified and infiltrated. Saravanan Ramsay CRNA ANESTHESIA PX NOTE ORDERABLES * Supraglottic (06/21/2024 8:23 AM CDT) Narrative Saravanan Ramsay CRNA - 06/21/2024 8:23 AM CDT Saravanan Ramsay CRNA ? 06/21/2024 ??8:23 AM Procedure: Supraglottic Patient location during procedure: OR Supraglottic Airway Properties Mask Ventilation: easy Type: i-gel Tube Size: 4 Insertion Attempts: 1 Placement Verification: auscultation and CO2 detection Assessment Assessment: atraumatic Saravanan Ramsay CRNA ANESTHESIA PX NOTE ORDERABLES * SCAN-CARDIAC STRIP (06/21/2024 7:30 AM CDT) Narrative 06/21/2024 7:30 AM CDT Ordered by an unspecified provider. Other Clinical Staff OTHER * MRSA DNA PCR [facility] ONLY (06/21/2024 6:22 AM CDT) Pathologist [facility] MRSA DNA PCR Negative Negative 06/21/2024 7:48 AM [facility] Other SPECIMEN FROM NASAL FOSSAE / Unknown Non-Blood / Unknown 06/21/2024 6:22 AM CDT 06/21/2024 6:30 AM CDT Bar Galeas MD MICROBIOLOGY [facility] [address] [place] [address], * (ABNORMAL) CBC WITH AUTO DIFFERENTIAL (06/21/2024 6:12 AM CDT) Pathologist [facility] WHITE BLOOD COUNT 8.2 4.5 - 11.0 thou/cu mm 06/21/2024 6:16 AM [facility] RED BLOOD COUNT 4.31 3.90 - 5.20 mil/cu mm 06/21/2024 6:16 AM [facility] HEMOGLOBIN 13.2 11.9 - 15.6 g/dL 06/21/2024 6:16 AM [facility] HEMATOCRIT 41.4 33.0 - 51.0 % 06/21/2024 6:16 AM [facility] MCV 96 80 - 100 fL 06/21/2024 6:16 AM [facility] MCH 30.6 26.0 - 34.0 pg 06/21/2024 6:16 AM [facility] MCHC 31.9(L) 32.0 - 36.0 g/dL 06/21/2024 6:16 AM [facility] RDW 12.8 11.5 - 15.5 % 06/21/2024 6:16 AM [facility] PLATELET COUNT 252 140 - 440 thou/cu mm 06/21/2024 6:16 AM [facility] MPV 9.0 6.5 - 11.0 fL 06/21/2024 6:16 AM [facility] % NEUT 63.5 42.0 - 72.0 % 06/21/2024 6:16 AM [facility] % LYMPH 22.7 20.0 - 44.0 % 06/21/2024 6:16 AM [facility] % MONO 9.4 <=12.0 % 06/21/2024 6:16 AM [facility] % EOS 3.9 <=8.0 % 06/21/2024 6:16 AM [facility] % BASO 0.4 <=3.0 % 06/21/2024 6:16 AM [facility] ABSOLUTE NEUTROPHILS 5.2 1.7 - 7.0 thou/cu mm 06/21/2024 6:16 AM [facility] ABSOLUTE LYMPHOCYTES 1.9 0.9 - 2.9 thou/cu mm 06/21/2024 6:16 AM [facility] ABSOLUTE MONOCYTES 0.8 <=0.9 thou/cu mm 06/21/2024 6:16 AM [facility] ABSOLUTE EOSINOPHILS 0.3 <=0.5 thou/cu mm 06/21/2024 6:16 AM [facility] ABSOLUTE BASOPHILS 0.0 <=0.3 thou/cu mm 06/21/2024 6:16 AM [facility] Blood BLOOD SPECIMEN / Unknown Venipuncture / Unknown 06/21/2024 6:12 AM CDT 06/21/2024 6:12 AM CDT Bar Galeas MD HEMATOLOGY [facility] [address] [place] [address], * SCAN CORRESP-DIAGNOSTICS (06/20/2024 1:41 PM CDT) Narrative 06/20/2024 1:41 PM CDT Ordered by an unspecified provider. Other Clinical Staff OTHER * SCAN CORRESP-LABORATORY RESULTS (06/19/2024 1:26 PM CDT) Narrative 06/19/2024 1:26 PM CDT Ordered by an unspecified provider. Other Clinical Staff OTHER * SCAN CORRESP-DIAGNOSTICS (06/19/2024 1:25 PM CDT) Narrative 06/19/2024 1:25 PM CDT Ordered by an unspecified provider. Other Clinical Staff OTHER * XR DXA BONE DENSITY 2 SITES [...] age >50. Kishan Gifford M.D. Body/Diagnostic Radiologist [employer] [facility] [employer] [email or web address] Narrative 04/30/2015 10:25 AM CDT DEXA SCAN, 04/23/2015 INDICATION: ??64-year-old woman. ??History of right hip replacement. ?? Postmenopausal. ??History of osteoporosis. ??History of gastric bypass. ??On diuretics, calcium, vitamin D, Fosamax and thyroid medication. ?? COMPARISON: ??This is a baseline examination at [facility]. ?? FINDINGS: ??Bone mineral density study was performed using the Triage bone densitometer. The results of the study are expressed as bone mineral density (BMD) are as follows: Lumbar Spine BMD: ??0.737 g/cm2 T-score: -3.6 Z-score: -2.0 Left Femoral Neck BMD: ??0.655 g/cm2 T-score: -2.8 Z-score: -1.2 FRAX?? score1: ??Not applicable. Dominga DUONG from Last 3 Months or Most Recently Relevant to Health Maintenance Advance Directives * DNR (Latest Code Status on File) Date Activated Date Inactivated Comments 06/23/2024 11:30 AM 06/24/2024 6:22 PM Question Answer Comments Code Status Discussion: Reviewed Preferences * Full Code Date Activated Date Inactivated Comments 06/23/2024 8:37 AM 06/23/2024 11:30 AM Question Answer Comments Code Status Discussion: Reviewed Preferences * Full Code Date Activated Date Inactivated Comments 06/21/2024 5:10 AM 06/21/2024 10:59 AM Question Answer Comments Code Status Discussion: Reviewed Preferences * Full Code Date Activated Date Inactivated Comments 05/14/2020 1:28 PM 05/14/2020 7:20 PM * Full Code Date Activated Date Inactivated Comments 03/24/2020 3:16 PM 03/27/2020 7:04 PM Care Teams Programming Engineer Relationship Specialty Start Date End Date Jannie Giordano DO [address] [place] [address] PCP - General Family Practice 03/17/20 Asher Dillon MD [address] [place] [id number] 02/09/15
== END 2024-07-08 15:16 | disposition home or self-care (01) ==
PROVIDERS: Emergency Provider Family Medicine
DX: M25.511 Pain in right shoulder (principal); G89.18 Other acute postprocedural pain
CPT/HCPCS: 73030; 99283; 99284

== ENCOUNTER 2024-09-17 14:30 | Outpatient (RCR) | payer MEDICARE, BC, SELFPAY | END 2024-09-18 10:37 | disposition home or self-care (01) | PROVIDERS: Visit Provider Orthopaedic Surgery | DX: M25.511 Pain in right shoulder (principal); M62.89 Other specified disorders of muscle; M62.81 Muscle weakness (generalized); Z51.89 Encounter for other specified aftercare | CPT/HCPCS: 97110; 97112; 97140; 97161; 97530 ==